=== PATIENT | female | born 1940 | race Caucasian/White ===

== ENCOUNTER → 2018-09-13 08:00 | Outpatient (CLI) | payer MEDICARE, SELFPAY ==
[2018-09-13 10:42] LABS: Thyroid Stimulating Hormone 1.64 uIU/mL (0.47-4.68)
== END ==
PROVIDERS: Family Provider Family Medicine; PCP Family Medicine; Visit Provider Family Medicine
DX: E03.9 Hypothyroidism, unspecified (principal)
CPT/HCPCS: 36415; 84443

== ENCOUNTER → 2019-01-25 09:41 | Outpatient (CLI) | payer MEDICARE, SELFPAY ==
[2019-01-25 11:09] LABS: Alanine Aminotransferase 30 IU/L (9-52); Albumin 4.4 g/dL (3.5-5.0); Albumin Globulin Ratio 1.2 (1.0-2.8); Alkaline Phosphatase 92 U/L (38-126); Aspartate Aminotransferase 35 IU/L (14-36); BUN Creatinine Ratio 29.1 (6-22); Bilirubin Total 0.5 mg/dL (0.2-1.3); Blood Urea Nitrogen 32 mg/dL (7-17); Calcium 10.4 mg/dL (8.4-10.2); Carbon Dioxide 26 mmol/L (22-32); Chloride 103 mmol/L (98-107); Estimated Glomerular Filt Rate 48.2 mL/min (>60); Globulin 3.6 g/dL (1.7-4.1); Glucose 89 mg/dL (80-110); HEMOLYSIS < 15 (0-50); Potassium 4.4 mmol/L (3.4-5.1); Sodium 140 mmol/L (137-145)
[2019-01-25 11:31] LABS: Thyroid Stimulating Hormone 1.41 uIU/mL (0.47-4.68)
== END ==
PROVIDERS: Family Provider Family Medicine; PCP Family Medicine; Visit Provider Family Medicine
DX: E03.9 Hypothyroidism, unspecified (principal); I10 Essential (primary) hypertension
CPT/HCPCS: 36415; 80053; 84443

== ENCOUNTER → 2019-04-06 14:30 | Outpatient (CLI) | payer MEDICARE, SELFPAY ==
--- NOTE | 2019-04-06 | DI.MG.S_ITS ---
BILATERAL DIGITAL DIAGNOSTIC MAMMOGRAM 3D/2D: 04/06/2019 CLINICAL: Right breast pain. Comparison is made to exams dated: 12/17/2009 mammogram, 08/15/2008 mammogram, and 12/30/2007 mammogram - [facility]. There are scattered fibroglandular elements in both breasts. No significant masses, calcifications, or other findings are seen in either breast. IMPRESSION: NEGATIVE There is no mammographic abnormality seen in the right breast to correspond with the now-resolved diffuse pain, however, clinical followup is recommended. There is no mammographic evidence of malignancy. A 1 year screening mammogram is recommended. This exam was interpreted at Station ID: [id number]. NOTE: For mammograms, a report in lay terms will be sent to the patient. Approximately 15% of breast malignancies will not be visualized mammographically. In the management of a palpable breast mass, a negative mammogram must not discourage biopsy of a clinically suspicious lesion. Electronically Signed By: Ofelia Garcia M.D. lk/:04/06/2019 15:20:37 letter sent: Normal Exam ACR BI-RADS Category 1: Negative [id number]
== END ==
PROVIDERS: PCP Family Medicine; Visit Provider Nurse Practitioner Family
DX: N64.4 Mastodynia (principal)
CPT/HCPCS: 77066; G0279

== ENCOUNTER → 2019-04-29 14:14 | Outpatient (CLI) | payer MEDICARE, SELFPAY ==
--- NOTE | 2019-04-29 | DI.RAD.S_ITS ---
PROCEDURE: XR FOOT LT MIN 3V INDICATIONS: LEFT FOOT PAIN TECHNIQUE: 3 views of the foot were acquired. COMPARISON: [facility], , FOOT 3V LEFT, 12/23/2010, 15:34. [facility], CR, FOOT 3V LEFT, 12/31/2017, 12:55. [facility], CR, FOOT 3V LEFT, 04/03/2016, 10:54. FINDINGS: Bones: No fractures or dislocations. No suspicious bony lesions. 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 This also was present in December of 2010. Soft tissues: No tibiotalar joint effusion. Achilles tendon appears normal. IMPRESSION: Source of current pain is not found. Area of sclerosis along the lateral base of the third metatarsal bone is again seen and has been present on prior studies including from December 2010. Mild osteoarthritis first MTP joint, mild bunion formation medial first metatarsal head, no osseous erosion is seen that would indicate presence of underlying gout. Dictated by: Mino Condon M.D. on 04/29/2019 at 15:40 Approved by: Mino Condon M.D. on 04/29/2019 at 15:44
== END ==
PROVIDERS: PCP Family Medicine; Visit Provider Family Medicine
DX: M79.672 Pain in left foot (principal); M19.072 Primary osteoarthritis, left ankle and foot; M21.612 Bunion of left foot
CPT/HCPCS: 73630

== ENCOUNTER → 2019-06-02 06:38 | Outpatient (CLI) | payer MEDICARE, SELFPAY ==
--- NOTE | 2019-06-02 | DI.MRI.S_ITS ---
PROCEDURE: MRFOOT LT WO CON INDICATIONS: LEFT FOOT PAIN TECHNIQUE: Noncontrast sagittal T1 spin echo and T2 fast spin echo with fat saturation, long-axis T1 spin echo and T2 fast spin echo with fat saturation, short-axis T1 spin echo and T2 fast spin echo with fat saturation through the forefoot. COMPARISON: [facility], CR, XR FOOT LT MIN 3V, 04/29/2019, 14:22. FINDINGS: Image quality: Excellent. Bones and joints: No bone marrow contusions or metatarsal stress fractures. The sesamoid bones appear in expected positions, without internal edema. There is prominent first MTP periarticular edema and swelling. Radiographically occult small/developing erosion involving the medial aspect of the first metatarsal head. In the appearance is highly suspicious for gout. There is mild first-second intermetatarsal bursitis. Small second MTP joint effusion. Elsewhere, no other marrow signal changes to suggest additional erosions. Diffuse muscle atrophy. Visualized flexor and extensor tendons appear intact, without tenosynovitis. The distal insertions of the peroneus brevis and longus tendons appear intact. The principal Lisfranc ligament appears intact. No soft tissue ganglion cysts or bursal fluid collections. Sagittal images demonstrate no evidence for plantar plate tears. IMPRESSION: Erosive appearance of first metatarsal head with marked surrounding soft tissue swelling and periarticular edema, highly suspicious for gout. Please correlate with laboratory studies/serum urate. Mild first-second intermetatarsal bursitis. Diffuse muscle atrophy. No evidence of stress fracture identified. Dictated by: Paul Haney M.D. on 06/02/2019 at 8:55 Approved by: Paul Haney M.D. on 06/02/2019 at 9:01
== END ==
PROVIDERS: Family Provider Family Medicine; PCP Family Medicine; Visit Provider Podiatrist
DX: M79.672 Pain in left foot (principal); M79.89 Other specified soft tissue disorders; M71.572 Other bursitis, not elsewhere classified, left ankle and foot; M62.572 Muscle wasting and atrophy, not elsewhere classified, left ankle and foot
CPT/HCPCS: 73718

== ENCOUNTER → 2019-06-15 14:25 | Outpatient (CLI) | payer MEDICARE, SELFPAY ==
[2019-06-15 15:07] LABS: Add Manual Diff / Slide Review NO; Basophils Absolute Auto 100 /uL (0-100); Basophils Percent Auto 1.2 % (0-2); Eosinophils Absolute Auto 200 /uL (0-450); Hematocrit 38.6 % (36-46); Hemoglobin 12.8 g/dL (12.0-16.0); Lymphocytes Absolute Auto 2300 /uL (1100-4500); Lymphocytes Percent Auto 27.8 % (25-40); Mean Corpuscular HGB Conc 33.2 % (30-36); Mean Corpuscular Hemoglobin 28.9 PG (26-34); Mean Corpuscular Volume 87.2 fL (80-100); Monocytes Absolute Auto 900 /uL (0-900); Monocytes Percent Auto 11.3 % (3-14); Neutrophils Absolute Auto 4700 /uL (1500-7000); Neutrophils Percent Auto 56.7 % (50-75); Platelet Count 320 X10^3/uL (150-400); Red Blood Cell Count 4.43 X10^6/uL (4.0-5.2); Red Cell Distribution Width 13.8 % (11.6-14.8); White Blood Cell Count 8.3 X10^3/uL (4.5-11.0)
[2019-06-15 16:12] LABS: Uric Acid 9.9 mg/dL (2.5-6.2)
== END ==
PROVIDERS: Family Provider Family Medicine; PCP Family Medicine; Visit Provider Podiatrist
DX: Z87.39 Personal history of other diseases of the musculoskeletal system and connective tissue (principal)
CPT/HCPCS: 36415; 84550; 85025

== ENCOUNTER → 2019-06-30 16:30 | Outpatient (CLI) | payer MEDICARE, SELFPAY ==
[2019-06-30 18:09] LABS: BUN Creatinine Ratio 31.7 (6-22); Blood Urea Nitrogen 38 mg/dL (7-17); Calcium 11.4 mg/dL (8.4-10.2); Carbon Dioxide 27 mmol/L (22-32); Chloride 107 mmol/L (98-107); Estimated Glomerular Filt Rate 43.6 mL/min (>60); Glucose 100 mg/dL (80-110); HEMOLYSIS < 15 (0-50); Potassium 4.9 mmol/L (3.4-5.1); Sodium 143 mmol/L (137-145); Uric Acid 9.3 mg/dL (2.5-6.2)
== END ==
PROVIDERS: PCP Family Medicine; Visit Provider Family Medicine
DX: M10.9 Gout, unspecified (principal); D64.9 Anemia, unspecified; I10 Essential (primary) hypertension; N28.9 Disorder of kidney and ureter, unspecified; Z79.899 Other long term (current) drug therapy
CPT/HCPCS: 36415; 80048; 84550; 84560

== ENCOUNTER → 2019-09-24 08:56 | Outpatient (CLI) | payer MEDICARE, SELFPAY ==
[2019-09-24 10:25] LABS: Uric Acid 7.2 mg/dL (2.5-6.2)
== END ==
PROVIDERS: PCP Family Medicine; Visit Provider Family Medicine
DX: M10.9 Gout, unspecified (principal)
CPT/HCPCS: 36415; 84550

== ENCOUNTER 2020-01-16 13:04 | Emergency (ER) | payer MEDICARE, SELFPAY ==
[2020-01-16] VITALS (11 sets, daily range): BP systolic 107–160; BP diastolic 59–93; PULSE 67–96; RESP 16–24; TEMP 36.6; O2SAT 95–98
--- NOTE | 2020-01-16 13:15 | DI.RAD.S_ITS ---
PROCEDURE: XR CHEST 1V INDICATIONS: chest pain TECHNIQUE: One view of the chest was acquired. COMPARISON: [facility], , CHEST 2 VIEW, 12/14/2015, 12:43. FINDINGS: Surgical changes and devices: Surgical clips are noted in the right lower neck and right upper abdomen as before. Lungs and pleura: Eventration of right hemidiaphragm, unchanged. Lungs are clear. No pleural effusions or pneumothorax. Mediastinum: Mediastinal contours appear normal. Heart size is normal. Bones and chest wall: No suspicious bony lesions. Overlying soft tissues appear unremarkable. IMPRESSION: Stable radiographic evaluation of the chest without acute cardiopulmonary abnormalities or focal airspace disease. Dictated by: Anibal Tamayo M.D. on 01/16/2020 at 13:39 Approved by: Anibal Tamayo M.D. on 01/16/2020 at 13:39
--- NOTE | 2020-01-16 13:50 | ED_ITS ---
HPI - Chest Pain <Abiola Camara PA-C - Last Filed: 01/16/20 23:34> General Chief Complaint: Abdominal Pain Stated Complaint: Upper back and abdominal pain since 01/11/20 Time Seen by Provider: 01/16/20 13:34 Source: patient and family Mode of arrival: Wheelchair Limitations: no limitations History of Present Illness HPI narrative: This is a 79 female who presents with 5 days of right upper quadrant abdominal pain that is intermittent and through the roof when it is happening, as well as back pain that happens a separate time that is at the base of her scapula and lasts for sometimes hours at a time. She reports some nausea for the last 5 days and has not been eating or drinking, very little fluid intake. She has not been vomiting, she has been having normal stools for her which include infrequent and firm stools, she takes Ex-Lax intermittently as needed for this and took some on Thursday. Her last bowel movement was yesterday morning. She has been feeling more weak for the last 5 days as well, she denies urinary symptoms but says that she has had UTIs in the past and has not had symptoms when she has been diagnosed with them, otherwise has no other complaints or concerns. She has had a hysterectomy, partial, she is unsure if she may have possibly had her gallbladder out, about 20 or 25 years ago. MD complaint: other (abdominal and back pain) Onset (ago): day(s) (5) Duration: intermittent Onset: during rest Pain location: epigastric Severity: moderate Severity scale (1-10): 5 Quality: aching and sharp Pain radiation: back Relieving factors: nothing and other (none tried) Exacerbating factors: nothing Associated symptoms: nausea Treatments prior to arrival chest pain: none Related Data Home Medications Medication Instructions Recorded Confirmed lovastatin 40 mg PO QDAYPM #1 07/02/08 04/08/18 [L THYROXINE] 75 QDAY #0 11/25/11 04/08/18 sumatriptan succinate [Imitrex 4 mg SQ #0 10/09/16 04/08/18 STATdose Refill] atorvastatin [Lipitor] 20 mg PO QDAY #0 08/25/17 04/08/18 levothyroxine [Synthroid] 0.075 mg PO QDAY #0 08/25/17 04/08/18 omeprazole 20 mg PO QDAY #0 08/25/17 04/08/18 propranolol [Inderal LA] 60 mg PO QDAY #0 09/01/17 04/08/18 Previous Rx's Medication Instructions Recorded propranolol 40 mg tablet 40 mg PO .qd #30 tab 04/08/18 acetaminophen [Tylenol Extra 500 mg PO Q6H PRN #14 tab 01/16/20 Strength] ciprofloxacin HCl 500 mg PO BID #10 tab 01/16/20 omeprazole 20 mg PO DAILY #20 cap 01/16/20 ondansetron HCl [Zofran] 4 mg PO Q8H #30 tab 01/16/20 Allergies Allergy/AdvReac Type Severity Reaction Status Date / Time amoxicillin [From Augmentin] Allergy Unknown Verified 04/08/18 15:13 clavulanic acid Allergy Unknown Verified 04/08/18 15:13 [From Augmentin] prednisone [PREDNISONE] Allergy Unknown Verified 04/08/18 15:13 Review of Systems <Abiola Camara PA-C - Last Filed: 01/16/20 23:34> Review of Systems Narrative: GENERAL: Denies chills, fatigue, malaise, fever, sweats. HEENT: Denies sinus pain, ear pain, sore throat, difficulty swallowing, dizziness. RESPIRATORY: Denies dyspnea, cough, wheezing, hemoptysis, sputum. CARDIOVASCULAR: Denies chest pain, palpitations, orthopnea, edema, GASTROINTESTINAL: Positive for nausea, abdominal pain, reduced appetite and reduced oral intake, constipation, right upper back pain below scapula negative for vomiting, diarrhea, melena. : Denies dysuria, frequency, incontinence, hematuria, urinary retention. MUSCULOSKELETAL: Positive for upper back pain on the right, denies weakness, joint pain, or bony pain SKIN: Denies rash, skin lesions, or other NEUROLOGIC: Denies weakness, headache, numbness, change in speech, confusion, seizures, incoordination. PSYCHIATRIC: No concerning psychosocial issues. 12 point review of systems is negative except for those stated above Patient History <MELVIN Duncan Last Filed: 01/16/20 23:34> Social History Smoking Status: Never smoker Smoking Status: Never smoker alcohol intake frequency: 0-2 drinks per day Substance Use Type: does not use Exam <Abiola Camara PA-C - Last Filed: 01/16/20 23:34> Narrative Exam Narrative: GENERAL: 79 year old patient appears stated age. Well-nourished, well-developed patient, in mild distress. HEAD: Atraumatic. Normocephalic. EYES: Pupils equal round and reactive. Extraocular motions intact. No scleral icterus. No injection or drainage. ENT: Nose without bleeding, purulent drainage. Throat without erythema, tonsillar hypertrophy or exudate. Airway patent. NECK: Trachea midline. Non tender CARDIOVASCULAR: Regular rate and rhythm without murmurs, gallops, or rubs. RESPIRATORY: Clear to auscultation. Breath sounds equal bilaterally. No wheezes, rales, or rhonchi. GASTROINTESTINAL: Abdomen soft, very tender in the right upper quadrant, Redmond sign is positive, negative McBurney's point tenderness, negative Rovsing, right lower quadrant left lower quadrant are nontender, left upper quadrant is mildly tender abdomen is otherwise non-tender, grossly nondistended, negative CVA tenderness. EXTREMITIES: No edema or joint tenderness. BACK: Nontender without deformity or crepitance. No flank tenderness. NEURO: AOx3. SKIN: No rash or erythema of visible areas Initial Vital Signs Initial Vital Signs: Vital Signs Temperature 97.8 F 01/16/20 13:10 Pulse Rate 96 H 01/16/20 13:10 Respiratory Rate 01/16/20 13:10 Blood Pressure 140/66 01/16/20 13:10 Pulse Oximetry 95 01/16/20 13:10 <Bijan Mcghee DO - Last Filed: 01/17/20 03:09> Initial Vital Signs Initial Vital Signs: Vital Signs Temperature 97.8 F 01/16/20 13:10 Pulse Rate 96 H 01/16/20 13:10 Respiratory Rate 01/16/20 13:10 Blood Pressure 140/66 01/16/20 13:10 Pulse Oximetry 95 01/16/20 13:10 Course <Abiola Camara PA-C - Last Filed: 01/16/20 23:34> Course Course Narrative: The pain is very suspicious for gallbladder etiology, however she believes she may possibly have already had this surgically removed. Plan to do a CT scan with contrast pending review of her labs for kidney function. While ultrasound may be appropriate given the location of her pain in the right upper quadrant, with radiation to her scapula, however given her history of constipation and at least 1 abdominal pelvic surgery, as well as her nausea and lack of appetite and concern for other possible etiologies of her pain and believe that a CT is warranted. At this time it is unlikely that her pain is cardiac in etiology based on her presentation, however this cannot be ruled out by exam and history alone. AST, ALT and alk-phos, and lipase are all in the normal range on initial draw. Orders Ordered: ED Orders 01/16/20 19:11 US abdomen complete Stat 01/16/20 20:14 D Dimer Stat Lipase Stat Troponin I Stat 01/16/20 21:20 Lactate (Lactic Acid) Stat Discontinued Medications Acetaminophen (Tylenol) 650 mg PO NOW ONE Stop: 01/16/20 20:58 Last Admin: 01/16/20 21:17 Dose: 650 mg Documented by: DORA Ciprofloxacin (Cipro) 500 mg PO NOW ONE Stop: 01/16/20 20:55 Last Admin: 01/16/20 21:17 Dose: 500 mg Documented by: DORA Al Hydrox/Mg Hydrox/Simethicone 20 ml/ Lidocaine HCl 15 ml 0 ml PO NOW ONE Stop: 01/16/20 16:22 Last Admin: 01/16/20 16:42 Dose: 35 ml Documented by: DORA Sodium Chloride (Normal Saline 0.9%) 1,000 mls @ 150 mls/hr IV CONT NICOLAS Last Infusion: 01/16/20 20:58 Dose: 0 mls/hr Documented by: Admin: 01/16/20 14:19 Dose: 150 mls/hr Documented by: DORA Ondansetron HCl (Zofran) 4 mg IV NOW ONE Stop: 01/16/20 13:51 Last Admin: 01/16/20 14:19 Dose: 4 mg Documented by: DORA Ondansetron HCl (Zofran) 4 mg IV Q2HR PRN PRN Reason: Nausea And Vomiting Last Admin: 01/16/20 22:13 Dose: 4 mg Documented by: DORA Pantoprazole Sodium (Protonix) 40 mg IV NOW ONE Stop: 01/16/20 19:12 Last Admin: 01/16/20 19:59 Dose: 40 mg Documented by: DORA Reevaluation(s) Reevaluation #1: Patient's pain is improved after GI cocktail, her urine is pending. Time: 16:54 Reevaluation #2: Evidence of a UTI. Discussed by phone with the family in the current situation regarding potential cause of her pain, as well as labs and imaging obtained thus far, advised planned to discharge, pending reexamination. Had planned to discharge patient, as the GI cocktail did resolve her symptoms, however on attempt to discharge her symptoms were back significantly worse, although her labs are largely unremarkable initially today, there is no clear explanation for her intermittent severe abdominal pain, discussed this patient with Dr. Mcghee ED attending, and we will pursue a repeat lipase, repeat troponin, abdominal ultrasound, D-dimer and administer Protonix. Time: 19:11 Reevaluation #3: Ordered additional labs and ultrasound based on the patient's continuing pain. Time: 20:35 Additional Reevaluation(s): I re-evaluated the patient, she continues to have intermittent pain unrelieved by Protonix. I advised her we were still awaiting results of the ultrasound and additional labs that were taken, if those are normal it is still possible that she will be sent home tonight, without a clear cause of her pain. First dose of Cipro was ordered for her UTI, as I do not suspect [facility] Also ordered p.o. Tylenol as the patient refused other pain medicines, reported allergies to opioid pain medicine according to her [id number] and son 21:25 Lactate is pending and plan to DC after this has resulted. Vital Signs Vital signs: Vital Signs - 8 hr 01/16/20 20:07 01/16/20 21:36 01/16/20 22:22 Pulse Rate 82 74 87 Respiratory Rate 16 16 16 Blood Pressure 140/67 Blood Pressure [Left Arm] 135/82 Blood Pressure [Right Arm] 140/67 Pulse Oximetry 98 98 98 <Bijan Mcghee, DO - Last Filed: 01/17/20 03:09> Orders Ordered: ED Orders 01/16/20 19:11 US abdomen complete Stat 01/16/20 20:14 D Dimer Stat Lipase Stat Troponin I Stat 01/16/20 21:20 Lactate (Lactic Acid) Stat Discontinued Medications Acetaminophen (Tylenol) 650 mg PO NOW ONE Stop: 01/16/20 20:58 Last Admin: 01/16/20 21:17 Dose: 650 mg Documented by: DORA Ciprofloxacin (Cipro) 500 mg PO NOW ONE Stop: 01/16/20 20:55 Last Admin: 01/16/20 21:17 Dose: 500 mg Documented by: DORA Al Hydrox/Mg Hydrox/Simethicone 20 ml/ Lidocaine HCl 15 ml 0 ml PO NOW ONE Stop: 01/16/20 16:22 Last Admin: 01/16/20 16:42 Dose: 35 ml Documented by: DORA Sodium Chloride (Normal Saline 0.9%) 1,000 mls @ 150 mls/hr IV CONT NICOLAS Last Infusion: 01/16/20 20:58 Dose: 0 mls/hr Documented by: Admin: 01/16/20 14:19 Dose: 150 mls/hr Documented by: DORA Ondansetron HCl (Zofran) 4 mg IV NOW ONE Stop: 01/16/20 13:51 Last Admin: 01/16/20 14:19 Dose: 4 mg Documented by: DORA Ondansetron HCl (Zofran) 4 mg IV Q2HR PRN PRN Reason: Nausea And Vomiting Last Admin: 01/16/20 22:13 Dose: 4 mg Documented by: DORA Pantoprazole Sodium (Protonix) 40 mg IV NOW ONE Stop: 01/16/20 19:12 Last Admin: 01/16/20 19:59 Dose: 40 mg Documented by: DORA Vital Signs Vital signs: Vital Signs - 8 hr 01/16/20 20:07 01/16/20 21:36 01/16/20 22:22 Pulse Rate 82 74 87 Respiratory Rate 16 16 16 Blood Pressure 140/67 Blood Pressure [Left Arm] 135/82 Blood Pressure [Right Arm] 140/67 Pulse Oximetry 98 98 98 MDM - Chest Pain <Abiola Camara PA-C - Last Filed: 01/16/20 23:34> Differential Diagnosis Differential diagnosis: Likely other (pancreatitis, urinary tract infection, small bowel obstruction, bowel ischemia, GERD) Medical Records Data Attestation: I reviewed the patient's medical records. Lab Data Attestation: I reviewed the patient's lab results. Result diagrams: 01/16/20 14:10 01/16/20 14:10 Labs: Lab Results 01/16/20 01/16/20 01/16/20 Range/Units 14:10 14:10 14:10 WBC 10.1 (4.5-11.0) X10^3/uL RBC 5.12 (4.0-5.2) X10^6/uL Hgb 14.8 (12.0-16.0) g/dL Hct 44.6 (36-46) % MCV 87.2 (80-100) fL MCH 28.9 (26-34) PG MCHC 33.2 (30-36) % RDW 13.8 (11.6-14.8) % Plt Count 335 (150-400) X10^3/uL Neut % (Auto) 70.7 (50-75) % Lymph % (Auto) 16.8 L (25-40) % [place] % (Auto) 10.6 (3-14) % Eos % (Auto) 1.1 L (2-4) % Baso % (Auto) 0.8 (0-2) % Neut # (Auto) 7100 H (6968-2810) /uL Lymph # (Auto) 1700 (8936-3854) /uL [place] # (Auto) 1100 H (0-900) /uL Eos # (Auto) 100 (0-450) /uL Baso # (Auto) 100 (0-100) /uL PT 12.3 (10.1-12.7) SECONDS INR 1.1 (0.9-1.3) APTT 35 (26.4-36.2) SECONDS D-Dimer (<230) ng/mL Sodium 138 (137-145) mmol/L Potassium 4.0 (3.4-5.1) mmol/L Chloride 103 (98-107) mmol/L Carbon Dioxide 24 (22-32) mmol/L BUN 33 H (7-17) mg/dL Creatinine 1.07 H (0.52-1.04) mg/dL Estimated GFR 49.6 L (>60) mL/min BUN/Creatinine Ratio 30.8 H (6-22) Glucose 111 H (80-110) mg/dL Lactate (0.7-2.1) mmol/L Calcium 11.5 H (8.4-10.2) mg/dL Magnesium 1.9 (1.6-2.3) mg/dL Total Bilirubin 0.7 (0.2-1.3) mg/dL AST 31 (14-36) IU/L ALT 20 (<35) IU/L Alkaline Phosphatase 109 (38-126) U/L Total Creatine Kinase 40 (30-135) U/L CK-MB (CK-2) TNP CK-MB (CK-2) Rel Index TNP Troponin I < 0.012 (0.01-0.034) ng/mL Total Protein 8.5 H (6.3-8.2) g/dL Albumin 4.7 (3.5-5.0) g/dL Globulin 3.8 (1.7-4.1) g/dL Albumin/Globulin Ratio 1.2 (1.0-2.8) Lipase 62 (23-300) U/L Urine Color Urine Appearance Urine pH (4.5-8.0) Ur Specific [place] (1.000-1.035) Urine Protein (Negative) Urine Glucose (UA) (Negative) g/dL Urine Ketones (NEGATIVE) Urine Occult Blood (Negative) Urine Nitrate (Negative) Urine Bilirubin (NEGATIVE) Urine Urobilinogen (0.2) E.U./dL Ur Leukocyte Esterase (NEGATIVE) Urine RBC (0-5/HPF) Urine WBC (0-5/HPF) Ur Squamous Epith Cells (0-5/HPF) Urine Bacteria (None) Ur Culture Indicated? 01/16/20 01/16/20 01/16/20 Range/Units 16:40 20:14 20:14 WBC (4.5-11.0) X10^3/uL RBC (4.0-5.2) X10^6/uL Hgb (12.0-16.0) g/dL Hct (36-46) % MCV (80-100) fL MCH (26-34) PG MCHC (30-36) % RDW (11.6-14.8) % Plt Count (150-400) X10^3/uL Neut % (Auto) (50-75) % Lymph % (Auto) (25-40) % [place] % (Auto) (3-14) % Eos % (Auto) (2-4) % Baso % (Auto) (0-2) % Neut # (Auto) (2867-1450) /uL Lymph # (Auto) (9446-4811) /uL [place] # (Auto) (0-900) /uL Eos # (Auto) (0-450) /uL Baso # (Auto) (0-100) /uL PT (10.1-12.7) SECONDS INR (0.9-1.3) APTT (26.4-36.2) SECONDS D-Dimer 242 H (<230) ng/mL Sodium (137-145) mmol/L Potassium (3.4-5.1) mmol/L Chloride (98-107) mmol/L Carbon Dioxide (22-32) mmol/L BUN (7-17) mg/dL Creatinine (0.52-1.04) mg/dL Estimated GFR (>60) mL/min BUN/Creatinine Ratio (6-22) Glucose (80-110) mg/dL Lactate (0.7-2.1) mmol/L Calcium (8.4-10.2) mg/dL Magnesium (1.6-2.3) mg/dL Total Bilirubin (0.2-1.3) mg/dL AST (14-36) IU/L ALT (<35) IU/L Alkaline Phosphatase (38-126) U/L Total Creatine Kinase (30-135) U/L CK-MB (CK-2) CK-MB (CK-2) Rel Index Troponin I < 0.012 (0.01-0.034) ng/mL Total Protein (6.3-8.2) g/dL Albumin (3.5-5.0) g/dL Globulin (1.7-4.1) g/dL Albumin/Globulin Ratio (1.0-2.8) Lipase 71 (23-300) U/L Urine Color Yellow Urine Appearance Sl cloudy Urine pH 5.0 (4.5-8.0) Ur Specific [place] <=1.005 (1.000-1.035) Urine Protein Trace H (Negative) Urine Glucose (UA) Negative (Negative) g/dL Urine Ketones Negative (NEGATIVE) Urine Occult Blood 3+ H (Negative) Urine Nitrate Positive H (Negative) Urine Bilirubin Negative (NEGATIVE) Urine Urobilinogen 0.2 (0.2) E.U./dL Ur Leukocyte Esterase Trace H (NEGATIVE) Urine RBC 5-10/hpf H (0-5/HPF) Urine WBC 5-10/hpf H (0-5/HPF) Ur Squamous Epith Cells 1-5 /hpf (0-5/HPF) Urine Bacteria Many (>30) H (None) Ur Culture Indicated? Specimen cultured 01/16/20 Range/Units 21:20 WBC (4.5-11.0) X10^3/uL RBC (4.0-5.2) X10^6/uL Hgb (12.0-16.0) g/dL Hct (36-46) % MCV (80-100) fL MCH (26-34) PG MCHC (30-36) % RDW (11.6-14.8) % Plt Count (150-400) X10^3/uL Neut % (Auto) (50-75) % Lymph % (Auto) (25-40) % [place] % (Auto) (3-14) % Eos % (Auto) (2-4) % Baso % (Auto) (0-2) % Neut # (Auto) (7550-8423) /uL Lymph # (Auto) (2677-8148) /uL [place] # (Auto) (0-900) /uL Eos # (Auto) (0-450) /uL Baso # (Auto) (0-100) /uL PT (10.1-12.7) SECONDS INR (0.9-1.3) APTT (26.4-36.2) SECONDS D-Dimer (<230) ng/mL Sodium (137-145) mmol/L Potassium (3.4-5.1) mmol/L Chloride (98-107) mmol/L Carbon Dioxide (22-32) mmol/L BUN (7-17) mg/dL Creatinine (0.52-1.04) mg/dL Estimated GFR (>60) mL/min BUN/Creatinine Ratio (6-22) Glucose (80-110) mg/dL Lactate 1.1 (0.7-2.1) mmol/L Calcium (8.4-10.2) mg/dL Magnesium (1.6-2.3) mg/dL Total Bilirubin (0.2-1.3) mg/dL AST (14-36) IU/L ALT (<35) IU/L Alkaline Phosphatase (38-126) U/L Total Creatine Kinase (30-135) U/L CK-MB (CK-2) CK-MB (CK-2) Rel Index Troponin I (0.01-0.034) ng/mL Total Protein (6.3-8.2) g/dL Albumin (3.5-5.0) g/dL Globulin (1.7-4.1) g/dL Albumin/Globulin Ratio (1.0-2.8) Lipase (23-300) U/L Urine Color Urine Appearance Urine pH (4.5-8.0) Ur Specific [place] (1.000-1.035) Urine Protein (Negative) Urine Glucose (UA) (Negative) g/dL Urine Ketones (NEGATIVE) Urine Occult Blood (Negative) Urine Nitrate (Negative) Urine Bilirubin (NEGATIVE) Urine Urobilinogen (0.2) E.U./dL Ur Leukocyte Esterase (NEGATIVE) Urine RBC (0-5/HPF) Urine WBC (0-5/HPF) Ur Squamous Epith Cells (0-5/HPF) Urine Bacteria (None) Ur Culture Indicated? Imaging Data Chest x-ray: Attestation: I personally reviewed and interpreted this imaging study as follows: Radiologist's Impression: [address] [address] XRay Report Signed Patient: Maira Galicia EMR#: [id number] : 1940cct:[id number] Age/Sex: 79 / FDate of Service: 01/16/20 Loc: ED Accession Number: [id number] Procedure: XR chest 1V Ordering Provider: Sammie Syed MD PROCEDURE: XR CHEST 1V INDICATIONS: chest pain TECHNIQUE: One view of the chest was acquired. COMPARISON: [facility], , CHEST 2 VIEW, 12/14/2015, 12:43. FINDINGS: Surgical changes and devices: Surgical clips are noted in the right lower neck and right upper abdomen as before. Lungs and pleura: Eventration of right hemidiaphragm, unchanged. Lungs are cl ear. No pleural effusions or pneumothorax. Mediastinum: Mediastinal contours appear normal. Heart size is normal. Bones and chest wall: No suspicious bony lesions. Overlying soft tissues ap pear unremarkable. IMPRESSION: Stable radiographic evaluation of the chest without acute cardiop ulmonary abnormalities or focal airspace disease. Dictated by: Anibal Tamayo M.D. on 01/16/2020 at 13:39 Approved by: Anibal Tamayo M.D. on 01/16/2020 at 13:39 CT scan - abdomen/pelvis: Attestation: I personally reviewed and interpreted this imaging study as follows: Radiologist's Impression: [address] [address] [address] Scan Report Signed Patient: Maira Galicia EMR#: [id number] : 1Acct:[id number] Age/Sex: 79 / FDate of Service: 01/16/20 Loc: ED Accession Number: [id number] Procedure: CT abdomen pelvis w con Ordering Provider: Abiola Camara P.A-C PROCEDURE: CT ABDOMEN PELVIS W CON INDICATIONS: acute worsening severe abd pain TECHNIQUE: After the administration of intravenous contrast, 5 mm thick sections acquired from the diaphragm to the symphysis. 5 mm coronal and sagittal reformats were acquired. For radiation dose reduction, the following was used: automated exposure control, adjustment of mA and/or kV according to patient size. COMPARISON: [facility], CT, IVP (ABD & PEL WWO CONTRAST), 12/05/2013, 9:43. FINDINGS: Image quality: Excellent. ABDOMEN: Lung bases: Lung bases are clear. Heart size is normal. Stable pulmonary emphysematous changes. Small hiatal hernia. Solid organs: Liver is normal in size and enhancement. Small left hepatic lobe hypodensity is again noted. Gallbladder is surgically absent. Biliary system is non dilated. Pancreas enhances normally. There is minimal jeimy-pancreatic stranding near the adjacent to the ampulla of Vater. No evidence for intraluminal filling defects within the distal common bile duct. Spleen is normal in size and enhancement. No adrenal nodules. Kidneys demonstrate normal size and enhancement, without hydronephro sis. Multiple bilateral renal hypodensities are again noted. These likely represent bilateral renal cysts. Peritoneum and bowel: Bowel loops demonstrate normal wall thickness and caliber. No free fluid or air. Scattered colonic diverticula without acute diverticulosis. Nodes and vessels: No retroperitoneal or mesenteric adenopathy by size criteria. Scattered atherosclerotic calcifications of the abdominal aorta and iliac vessels without aneurysmal dilatation. Miscellaneous: No ventral hernias. PELVIS: Genitourinary: Urinary bladder wall thickness is normal. The uterus is not visualized and presumably surgically absent. Miscellaneous: No inguinal hernias or adenopathy. Bones: No suspicious bony lesions. No acute vertebral body compression fractures. Multilevel lumbar spondylosis. Status post interval posterior spinal fusion and laminectomies of L4 and L5. IMPRESSION: 1. Minimal peripancreatic stranding near the pancreatic head and ampulla of Vater. No CT evidence for choledocholithiasis. Findings may represent volume averaging artifact versus early/mild pancreatitis. Recommend clinical and laboratory correlation. 2. Scatter colonic diverticulosis without acute diverticulitis. 3. Status post cholecystectomy. Dictated by: Anibal Tamayo M.D. on 01/16/2020 at 15:15 Approved by: Anibal Tamayo M.D. on 01/16/2020 at 15:26 US - abdomen: Attestation: I personally reviewed and interpreted this imaging study as follows: Radiologist's Impression: [address] [address] Ultrasound Report Signed Patient: Maira Galicia EMR#: [id number] : 1940cct:[id number] Age/Sex: 79 / FDate of Service: 01/16/20 Loc: ED Accession Number: [id number] Procedure: US abdomen complete Ordering Provider: Abiola Camara P.A-C PROCEDURE: US ABDOMEN COMPLETE INDICATIONS: INTRACTABLE PAIN, ABN PANCREAS ON CT TECHNIQUE: Real-time scanning was performed of the abdominal and retroperitoneal organs, with image documentation. COMPARISON: [facility], US, ABDOMEN COMPLETE, 02/28/2013, 11:09. FINDINGS: Study limited secondary to moderate overlying bowel gas. Liver: Visualized portions of the liver appear normal in echotexture. No focal intrahepatic lesions. Gallbladder: Surgically absent Biliary ducts: Intrahepatic bile ducts are non-dilated. Extrahepatic bile duct caliber measures 4 mm; however, it is not fully visualized. Normal is 6-7 mm or less in diameter, or 10 mm or less post-cholecystectomy. Pancreas: The visualized portions of the pancreas are sonographically normal. Only the pancreatic body was visualized. Spleen: Spleen is normal in size and homogeneous in echotexture. Kidneys: Kidneys are normal in size and echotexture. Right kidney measures 10.4 cm long; left kidney measures 10 point cm long. No hydronephrosis or nephrolithiasis. No solid masses. There are multiple incompletely characterized cystic lesions within the kidneys, likely representing cysts. Largest measures 1.7 cm in size. Aorta: Visualized aorta is normal in caliber at less than 3 cm. Iliacs: Proximal common iliac arteries are normal in caliber at less than 2.5 cm. Miscellaneous: No free abdominal fluid. IMPRESSION: Limited evaluation of the abdomen secondary to moderate overlying bowel gas. Status post cholecystectomy. Visualized portions of the liver and pancreas appear normal. No evidence for obstructive uropathy. Multiple bilateral cystic lesions likely representing cysts but are incompletely visualized due to bowel gas. Consider dedicated outpatient ultrasound to further evaluate. Dictated by: Anibal Tamayo M.D. on 01/16/2020 at 20:42 Approved by: Anibal Tamayo M.D. on 01/16/2020 at 20:47 ECG Data Attestation: I personally reviewed and interpreted this ECG as follows: (Normal sinus rhythm rate 87 p.r. interval 196 QRS 110 QT 408 P 69, R -39, T 33 EKG was reviewed by Dr. Syed attending physician; read out with nonspecific ST abnormality, prolonged QT, left axis deviation) MDM Narrative Medical decision making narrative: This is a 79-year-old female who presents with severe intermittent right upper quadrant abdominal pain for the last 5 days and back pain around her right scapula that lasts for hours at a time. She has had associated nausea, without vomiting and normal bowel movements for her. Previous cholecystectomy and partial hysterectomy. Labs were largely unremarkable, and not suggestive liver etiology, gallbladder is absent, lipase was also unremarkable, however she did have some peripancreatic stranding around the head of the pancreas and ambulate of Vater on CT scan. Her pain was improved with a GI cocktail in the emergency department. Planned to send her home with increase omeprazole dose, and close PCP follow-up, as labs do not suggest an acute pancreatitis, and imaging does not either. She declined pain control in the emergency department, and advises that she does not take pain medicine at home. Unattended discharge she reported continued severe pain, and thus further workup was pursued, including a D-dimer which with age adjustment of D-dimer cutoff of 390, suggests a VTE is unlikely. Complete abdominal ultrasound was also performed and was unremarkable, the source of her pain remains unclear with the possible exception of her urinary tract infection as a cause, however this seems unlikely to explain all of her pain. Lactate was not elevated. First dose of Cipro for her UTI in the emergency department as well as Tylenol for pain. <Bijanyojana Mcghee DO - Last Filed: 01/17/20 03:09> Lab Data Labs: Lab Results 01/16/20 01/16/20 01/16/20 Range/Units 14:10 14:10 14:10 WBC 10.1 (4.5-11.0) X10^3/uL RBC 5.12 (4.0-5.2) X10^6/uL Hgb 14.8 (12.0-16.0) g/dL Hct 44.6 (36-46) % MCV 87.2 (80-100) fL MCH 28.9 (26-34) PG MCHC 33.2 (30-36) % RDW 13.8 (11.6-14.8) % Plt Count 335 (150-400) X10^3/uL Neut % (Auto) 70.7 (50-75) % Lymph % (Auto) 16.8 L (25-40) % [place] % (Auto) 10.6 (3-14) % Eos % (Auto) 1.1 L (2-4) % Baso % (Auto) 0.8 (0-2) % Neut # (Auto) 7100 H (9613-2462) /uL Lymph # (Auto) 1700 (3785-7347) /uL [place] # (Auto) 1100 H (0-900) /uL Eos # (Auto) 100 (0-450) /uL Baso # (Auto) 100 (0-100) /uL PT 12.3 (10.1-12.7) SECONDS INR 1.1 (0.9-1.3) APTT 35 (26.4-36.2) SECONDS D-Dimer (<230) ng/mL Sodium 138 (137-145) mmol/L Potassium 4.0 (3.4-5.1) mmol/L Chloride 103 (98-107) mmol/L Carbon Dioxide 24 (22-32) mmol/L BUN 33 H (7-17) mg/dL Creatinine 1.07 H (0.52-1.04) mg/dL Estimated GFR 49.6 L (>60) mL/min BUN/Creatinine Ratio 30.8 H (6-22) Glucose 111 H (80-110) mg/dL Lactate (0.7-2.1) mmol/L Calcium 11.5 H (8.4-10.2) mg/dL Magnesium 1.9 (1.6-2.3) mg/dL Total Bilirubin 0.7 (0.2-1.3) mg/dL AST 31 (14-36) IU/L ALT 20 (<35) IU/L Alkaline Phosphatase 109 (38-126) U/L Total Creatine Kinase 40 (30-135) U/L CK-MB (CK-2) TNP CK-MB (CK-2) Rel Index TNP Troponin I < 0.012 (0.01-0.034) ng/mL Total Protein 8.5 H (6.3-8.2) g/dL Albumin 4.7 (3.5-5.0) g/dL Globulin 3.8 (1.7-4.1) g/dL Albumin/Globulin Ratio 1.2 (1.0-2.8) Lipase 62 (23-300) U/L Urine Color Urine Appearance Urine pH (4.5-8.0) Ur Specific [place] (1.000-1.035) Urine Protein (Negative) Urine Glucose (UA) (Negative) g/dL Urine Ketones (NEGATIVE) Urine Occult Blood (Negative) Urine Nitrate (Negative) Urine Bilirubin (NEGATIVE) Urine Urobilinogen (0.2) E.U./dL Ur Leukocyte Esterase (NEGATIVE) Urine RBC (0-5/HPF) Urine WBC (0-5/HPF) Ur Squamous Epith Cells (0-5/HPF) Urine Bacteria (None) Ur Culture Indicated? 01/16/20 01/16/20 01/16/20 Range/Units 16:40 20:14 20:14 WBC (4.5-11.0) X10^3/uL RBC (4.0-5.2) X10^6/uL Hgb (12.0-16.0) g/dL Hct (36-46) % MCV (80-100) fL MCH (26-34) PG MCHC (30-36) % RDW (11.6-14.8) % Plt Count (150-400) X10^3/uL Neut % (Auto) (50-75) % Lymph % (Auto) (25-40) % [place] % (Auto) (3-14) % Eos % (Auto) (2-4) % Baso % (Auto) (0-2) % Neut # (Auto) (1090-6902) /uL Lymph # (Auto) (7016-6178) /uL [place] # (Auto) (0-900) /uL Eos # (Auto) (0-450) /uL Baso # (Auto) (0-100) /uL PT (10.1-12.7) SECONDS INR (0.9-1.3) APTT (26.4-36.2) SECONDS D-Dimer 242 H (<230) ng/mL Sodium (137-145) mmol/L Potassium (3.4-5.1) mmol/L Chloride (98-107) mmol/L Carbon Dioxide (22-32) mmol/L BUN (7-17) mg/dL Creatinine (0.52-1.04) mg/dL Estimated GFR (>60) mL/min BUN/Creatinine Ratio (6-22) Glucose (80-110) mg/dL Lactate (0.7-2.1) mmol/L Calcium (8.4-10.2) mg/dL Magnesium (1.6-2.3) mg/dL Total Bilirubin (0.2-1.3) mg/dL AST (14-36) IU/L ALT (<35) IU/L Alkaline Phosphatase (38-126) U/L Total Creatine Kinase (30-135) U/L CK-MB (CK-2) CK-MB (CK-2) Rel Index Troponin I < 0.012 (0.01-0.034) ng/mL Total Protein (6.3-8.2) g/dL Albumin (3.5-5.0) g/dL Globulin (1.7-4.1) g/dL Albumin/Globulin Ratio (1.0-2.8) Lipase 71 (23-300) U/L Urine Color Yellow Urine Appearance Sl cloudy Urine pH 5.0 (4.5-8.0) Ur Specific [place] <=1.005 (1.000-1.035) Urine Protein Trace H (Negative) Urine Glucose (UA) Negative (Negative) g/dL Urine Ketones Negative (NEGATIVE) Urine Occult Blood 3+ H (Negative) Urine Nitrate Positive H (Negative) Urine Bilirubin Negative (NEGATIVE) Urine Urobilinogen 0.2 (0.2) E.U./dL Ur Leukocyte Esterase Trace H (NEGATIVE) Urine RBC 5-10/hpf H (0-5/HPF) Urine WBC 5-10/hpf H (0-5/HPF) Ur Squamous Epith Cells 1-5 /hpf (0-5/HPF) Urine Bacteria Many (>30) H (None) Ur Culture Indicated? Specimen cultured 01/16/20 Range/Units 21:20 WBC (4.5-11.0) X10^3/uL RBC (4.0-5.2) X10^6/uL Hgb (12.0-16.0) g/dL Hct (36-46) % MCV (80-100) fL MCH (26-34) PG MCHC (30-36) % RDW (11.6-14.8) % Plt Count (150-400) X10^3/uL Neut % (Auto) (50-75) % Lymph % (Auto) (25-40) % [place] % (Auto) (3-14) % Eos % (Auto) (2-4) % Baso % (Auto) (0-2) % Neut # (Auto) (1288-9858) /uL Lymph # (Auto) (4730-7500) /uL [place] # (Auto) (0-900) /uL Eos # (Auto) (0-450) /uL Baso # (Auto) (0-100) /uL PT (10.1-12.7) SECONDS INR (0.9-1.3) APTT (26.4-36.2) SECONDS D-Dimer (<230) ng/mL Sodium (137-145) mmol/L Potassium (3.4-5.1) mmol/L Chloride (98-107) mmol/L Carbon Dioxide (22-32) mmol/L BUN (7-17) mg/dL Creatinine (0.52-1.04) mg/dL Estimated GFR (>60) mL/min BUN/Creatinine Ratio (6-22) Glucose (80-110) mg/dL Lactate 1.1 (0.7-2.1) mmol/L Calcium (8.4-10.2) mg/dL Magnesium (1.6-2.3) mg/dL Total Bilirubin (0.2-1.3) mg/dL AST (14-36) IU/L ALT (<35) IU/L Alkaline Phosphatase (38-126) U/L Total Creatine Kinase (30-135) U/L CK-MB (CK-2) CK-MB (CK-2) Rel Index Troponin I (0.01-0.034) ng/mL Total Protein (6.3-8.2) g/dL Albumin (3.5-5.0) g/dL Globulin (1.7-4.1) g/dL Albumin/Globulin Ratio (1.0-2.8) Lipase (23-300) U/L Urine Color Urine Appearance Urine pH (4.5-8.0) Ur Specific [place] (1.000-1.035) Urine Protein (Negative) Urine Glucose (UA) (Negative) g/dL Urine Ketones (NEGATIVE) Urine Occult Blood (Negative) Urine Nitrate (Negative) Urine Bilirubin (NEGATIVE) Urine Urobilinogen (0.2) E.U./dL Ur Leukocyte Esterase (NEGATIVE) Urine RBC (0-5/HPF) Urine WBC (0-5/HPF) Ur Squamous Epith Cells (0-5/HPF) Urine Bacteria (None) Ur Culture Indicated? Discharge Plan Departure Patient Disposition: Home Clinical Impression: Complicated urinary tract infection, Abdominal pain, acute, right upper quadrant Discharge Date/Time: 01/16/20 22:23 Instructions: DI for Urinary Tract Infection (UTI), DI for Abdominal Pain-Adult Activity Restrictions/Additional Instructions: Thank you for letting us to be part of your care today, based on labs, CT scan, abdominal ultrasound, There is no evidence of an emergent or life threatening illness at this time, nor is the cause of your pain clear, but follow up with your doctor in 1-2 days is recommended nonetheless to continue to rule out serious underlying causes of your symptoms. Please call the office for an ap pointment. You had a very extensive workup in the emergency department today and unfortunately we have not found a clear cause of your abdominal pain. Please return to the Emergency Department for any worsening or persistent symptoms. Please take medications as directed. Your urine showed evidence of urinary tract infection which we are treating with Cipro an antibiotic, please take as prescribed (twice a day). Occasionally urinary tract infection can go up the ureter and involved the kidney, if that is the case, this antibiotic should help. Your back pain by your shoulder blade could be due to your kidney being affected by this, but you also had abdominal pain in the upper middle of your abdomen that was relieved with medication and I am writing a prescription for omeprazole which should help with your stomach pain. I have also prescribed extra strength tylenol that you can take for pain. And Zofran (ondansetron) which is an anti nausea medicine that you can take as needed every 6-8 hours for nausea. I advise you to follow-up with your PCP in the next 1-2 days and if you have a train attendant I recommend seeing your train attendant. If you develop any new or worsening symptoms, you should seek medical care. Prescriptions: New ciprofloxacin HCl 500 mg tablet 500 mg PO BID Qty: 10 RF: 0 omeprazole 20 mg capsule,delayed release(DR/EC) 20 mg PO DAILY Qty: 20 RF: 0 acetaminophen [Tylenol Extra Strength] 500 mg tablet 500 mg PO Q6H PRN (Reason: pain) Qty: 14 RF: 0 ondansetron HCl [Zofran] 4 mg tablet 4 mg PO Q8H Qty: 30 RF: 0 No Action lovastatin 20 MG tablet 40 mg PO QDAYPM Qty: 1 RF: 0 [L THYROXINE] 75 QDAY Qty: 0 RF: 0 sumatriptan succinate [Imitrex STATdose Refill] 4 MG/0.5 ML cartridge 4 mg SQ Qty: 0 RF: 0 omeprazole 20 MG capsule,delayed release(DR/EC) 20 mg PO QDAY Qty: 0 RF: 0 atorvastatin [Lipitor] 20 MG tablet 20 mg PO QDAY Qty: 0 RF: 0 levothyroxine [Synthroid] 75 MCG tablet 0.075 mg PO QDAY Qty: 0 RF: 0 propranolol [Inderal LA] 60 MG capsule,extended release 24 hr 60 mg PO QDAY Qty: 0 RF: 0 propranolol 40 mg tablet 40 mg PO .qd Qty: 30 RF: 11 Referrals: Koffi Bxo MD [Primary Care Provider] - <Bijan Mcghee DO - Last Filed: 01/17/20 03:09> Cosign ED Attending Coselvaature Attestation: I was immediately available in the department for consultation. This documentation has been reviewed and I agree with assessment and plan. Supervised by Bijan Mcghee, DO
[2020-01-16] MEDS: SODIUM CHLORIDE 0.9% 1,000 ML 150 ML IV (14:19)
[2020-01-16] MEDS: ONDANSETRON 4 MG/2 ML INJ IV ×2 (14:19→22:13)
[2020-01-16 14:22] LABS: Add Manual Diff / Slide Review NO; Basophils Absolute Auto 100 /uL (0-100); Basophils Percent Auto 0.8 % (0-2); Eosinophils Absolute Auto 100 /uL (0-450); Eosinophils Percent Auto 1.1 % (2-4); Hematocrit 44.6 % (36-46); Hemoglobin 14.8 g/dL (12.0-16.0); Lymphocytes Absolute Auto 1700 /uL (1100-4500); Lymphocytes Percent Auto 16.8 % (25-40); Mean Corpuscular HGB Conc 33.2 % (30-36); Mean Corpuscular Hemoglobin 28.9 PG (26-34); Mean Corpuscular Volume 87.2 fL (80-100); Monocytes Absolute Auto 1100 /uL (0-900); Monocytes Percent Auto 10.6 % (3-14); Neutrophils Absolute Auto 7100 /uL (1500-7000); Neutrophils Percent Auto 70.7 % (50-75); Platelet Count 335 X10^3/uL (150-400); Red Blood Cell Count 5.12 X10^6/uL (4.0-5.2); Red Cell Distribution Width 13.8 % (11.6-14.8); White Blood Cell Count 10.1 X10^3/uL (4.5-11.0)
[2020-01-16 14:29] LABS: INR 1.1 (0.9-1.3); Prothrombin Time 12.3 SECONDS (10.1-12.7)
[2020-01-16 14:32] LABS: PTT Partial Thromboplastin Tim 35 SECONDS (26.4-36.2)
[2020-01-16 14:33] LABS: Alanine Aminotransferase 20 IU/L (<35); Albumin 4.7 g/dL (3.5-5.0); Albumin Globulin Ratio 1.2 (1.0-2.8); Alkaline Phosphatase 109 U/L (38-126); Aspartate Aminotransferase 31 IU/L (14-36); BUN Creatinine Ratio 30.8 (6-22); Bilirubin Total 0.7 mg/dL (0.2-1.3); Blood Urea Nitrogen 33 mg/dL (7-17); Calcium 11.5 mg/dL (8.4-10.2); Carbon Dioxide 24 mmol/L (22-32); Chloride 103 mmol/L (98-107); Creatine Kinase 40 U/L (30-135); Estimated Glomerular Filt Rate 49.6 mL/min (>60); Globulin 3.8 g/dL (1.7-4.1); Glucose 111 mg/dL (80-110); HEMOLYSIS 18 (0-50); Lipase 62 U/L (23-300); Magnesium 1.9 mg/dL (1.6-2.3); Sodium 138 mmol/L (137-145); Total Protein 8.5 g/dL (6.3-8.2)
[2020-01-16 14:45] LABS: Troponin I < 0.012 ng/mL (0.01-0.034)
--- NOTE | 2020-01-16 14:51 | DI.CT.S_ITS ---
PROCEDURE: CT ABDOMEN PELVIS W CON INDICATIONS: acute worsening severe abd pain TECHNIQUE: After the administration of intravenous contrast, 5 mm thick sections acquired from the diaphragm to the symphysis. 5 mm coronal and sagittal reformats were acquired. For radiation dose reduction, the following was used: automated exposure control, adjustment of mA and/or kV according to patient size. COMPARISON: [facility], CT, IVP (ABD & PEL WWO CONTRAST), 12/05/2013, 9:43. FINDINGS: Image quality: Excellent. ABDOMEN: Lung bases: Lung bases are clear. Heart size is normal. Stable pulmonary emphysematous changes. Small hiatal hernia. Solid organs: Liver is normal in size and enhancement. Small left hepatic lobe hypodensity is again noted. Gallbladder is surgically absent. Biliary system is non dilated. Pancreas enhances normally. There is minimal jeimy-pancreatic stranding near the adjacent to the ampulla of Vater. No evidence for intraluminal filling defects within the distal common bile duct. Spleen is normal in size and enhancement. No adrenal nodules. Kidneys demonstrate normal size and enhancement, without hydronephrosis. Multiple bilateral renal hypodensities are again noted. These likely represent bilateral renal cysts. Peritoneum and bowel: Bowel loops demonstrate normal wall thickness and caliber. No free fluid or air. Scattered colonic diverticula without acute diverticulosis. Nodes and vessels: No retroperitoneal or mesenteric adenopathy by size criteria. Scattered atherosclerotic calcifications of the abdominal aorta and iliac vessels without aneurysmal dilatation. Miscellaneous: No ventral hernias. PELVIS: Genitourinary: Urinary bladder wall thickness is normal. The uterus is not visualized and presumably surgically absent. Miscellaneous: No inguinal hernias or adenopathy. Bones: No suspicious bony lesions. No acute vertebral body compression fractures. Multilevel lumbar spondylosis. Status post interval posterior spinal fusion and laminectomies of L4 and L5. IMPRESSION: 1. Minimal peripancreatic stranding near the pancreatic head and ampulla of Vater. No CT evidence for choledocholithiasis. Findings may represent volume averaging artifact versus early/mild pancreatitis. Recommend clinical and laboratory correlation. 2. Scatter colonic diverticulosis without acute diverticulitis. 3. Status post cholecystectomy. Dictated by: Anibal Tamayo M.D. on 01/16/2020 at 15:15 Approved by: Anibal Tamayo M.D. on 01/16/2020 at 15:26
[2020-01-16] MEDS: MAG HYDROX/ALUMINUM/SIMETH SUS 20 ML, LIDOCAINE VISCOUS 2% 15 ML PO (16:42)
--- NOTE | 2020-01-16 16:47 | PC.NURSE ---
Pain relieved by GI Cocktail. Unsteady on feet when moving patient to commode, needs full stand by assist. Urine is dark and foul smelling, sent for micro.
[2020-01-16 16:55] LABS: Appearance Urine UA SL CLOUDY; Bilirubin Urine UA NEGATIVE (NEGATIVE); Color Urine UA YELLOW; Glucose Urine UA NEGATIVE (Negative); Ketones Urine UA NEGATIVE (NEGATIVE); Leukocyte Esterase Urine UA TRACE (NEGATIVE); Nitrite Urine UA POSITIVE (Negative); Occult Blood Urine UA 3+ (Negative); Protein Urine UA TRACE (Negative); Specific Gravity Urine UA <=1.005 (1.000-1.035); Urobilinogen Urine UA 0.2 E.U./dL (0.2)
[2020-01-16 17:08] LABS: RBC Urine 5-10/HPF (0-5/HPF); Squamous Epithelial Cell Urine 1-5 /HPF (0-5/HPF); WBC Urine 5-10/HPF (0-5/HPF)
[2020-01-16 17:09] LABS: Bacteria Urine Many (>30); Culture Indicated Urine Specimen Cultured
--- NOTE | 2020-01-16 19:04 | PC.NURSE ---
Prepping to DC patient when she reports pain returned at 9/10. She is gripping abdomen and moaning saying this is what it keeps doing at home. it's coming and going like this. CLEO Camara aware.
--- NOTE | 2020-01-16 19:11 | DI.US.S_ITS ---
PROCEDURE: US ABDOMEN COMPLETE INDICATIONS: INTRACTABLE PAIN, ABN PANCREAS ON CT TECHNIQUE: Real-time scanning was performed of the abdominal and retroperitoneal organs, with image documentation. COMPARISON: [facility], US, ABDOMEN COMPLETE, 02/28/2013, 11:09. FINDINGS: Study limited secondary to moderate overlying bowel gas. Liver: Visualized portions of the liver appear normal in echotexture. No focal intrahepatic lesions. Gallbladder: Surgically absent Biliary ducts: Intrahepatic bile ducts are non-dilated. Extrahepatic bile duct caliber measures 4 mm; however, it is not fully visualized. Normal is 6-7 mm or less in diameter, or 10 mm or less post-cholecystectomy. Pancreas: The visualized portions of the pancreas are sonographically normal. Only the pancreatic body was visualized. Spleen: Spleen is normal in size and homogeneous in echotexture. Kidneys: Kidneys are normal in size and echotexture. Right kidney measures 10.4 cm long; left kidney measures 10 point cm long. No hydronephrosis or nephrolithiasis. No solid masses. There are multiple incompletely characterized cystic lesions within the kidneys, likely representing cysts. Largest measures 1.7 cm in size. Aorta: Visualized aorta is normal in caliber at less than 3 cm. Iliacs: Proximal common iliac arteries are normal in caliber at less than 2.5 cm. Miscellaneous: No free abdominal fluid. IMPRESSION: Limited evaluation of the abdomen secondary to moderate overlying bowel gas. Status post cholecystectomy. Visualized portions of the liver and pancreas appear normal. No evidence for obstructive uropathy. Multiple bilateral cystic lesions likely representing cysts but are incompletely visualized due to bowel gas. Consider dedicated outpatient ultrasound to further evaluate. Dictated by: Anibal Tamayo M.D. on 01/16/2020 at 20:42 Approved by: Anibal Tamayo M.D. on 01/16/2020 at 20:47
[2020-01-16] MEDS: PANTOPRAZOLE 40 MG VIAL IV (19:59)
--- NOTE | 2020-01-16 20:08 | PC.NURSE ---
Patient reports the pain is going back down again. And that this is what it does, it gets really bad and then it just goes away.
[2020-01-16 20:38] LABS: Lipase 71 U/L (23-300)
[2020-01-16 20:40] LABS: D Dimer 242 ng/mL (<230)
[2020-01-16 20:50] LABS: Troponin I < 0.012 ng/mL (0.01-0.034)
[2020-01-16] MEDS: CIPROFLOXACIN 500 MG TABLET PO (21:17)
[2020-01-16] MEDS: ACETAMINOPHEN 325 MG TABLET 650 MG PO (21:17)
[2020-01-16 21:35] LABS: Lactate (Lactic Acid) 1.1 mmol/L (0.7-2.1)
== END 2020-01-16 22:23 | disposition home or self-care (01) ==
PROVIDERS: Emergency Medicine; Emergency Provider Student in an Organized Health Care Education/Training Program; PCP Family Medicine
DX: N39.0 Urinary tract infection, site not specified (principal); R10.11 Right upper quadrant pain; M54.6 Pain in thoracic spine; R07.9 Chest pain, unspecified
CPT/HCPCS: 36415; 71045; 74177; 76700; 80053; 81001; 82550; 83605; 83690; 83735; 84484; 85025; 85379; 85610; 85730; 87077; 87086; 87186; 93005; 96361; 96374; 96375; 96376; 99285; C9113; J2405

== ENCOUNTER → 2020-02-24 09:06 | Outpatient (CLI) | payer MEDICARE, SELFPAY ==
--- NOTE | 2020-02-24 | DI.RAD.S_ITS ---
PROCEDURE: XR FOOT LT MIN 3V INDICATIONS: Left foot pain and swelling, history of gout TECHNIQUE: 3 views of the foot were acquired. COMPARISON: [facility], CR, XR FOOT LT MIN 3V, 04/29/2019, 14:22. [facility], CR, FOOT 3V LEFT, 12/31/2017, 12:55. FINDINGS: Bones: No fractures or dislocations. No suspicious bony lesions. There is mild joint space narrowing at the first MTP joint but no erosive arthritis is seen. Soft tissues: No tibiotalar joint effusion. Achilles tendon appears normal. 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 Dictated by: Mino Condon M.D. on 02/24/2020 at 9:29 Approved by: Mino Condon M.D. on 02/24/2020 at 9:30
== END ==
PROVIDERS: PCP Family Medicine; Referring Provider Family Medicine; Visit Provider Family Medicine
DX: M79.672 Pain in left foot (principal); M79.89 Other specified soft tissue disorders; M19.072 Primary osteoarthritis, left ankle and foot
CPT/HCPCS: 73630

== ENCOUNTER → 2020-04-11 15:33 | Outpatient (CLI) | payer MEDICARE, SELFPAY ==
--- NOTE | 2020-04-11 | DI.MG.S_ITS ---
BILATERAL DIGITAL SCREENING MAMMOGRAM 3D/2D WITH CAD: 04/11/2020 CLINICAL: Routine screening. Comparison is made to exams dated: 04/06/2019 mammogram, 12/17/2009 mammogram, and 12/30/2007 mammogram - [facility]. There are scattered fibroglandular elements in both breasts. Current study was also evaluated with a Computer Aided Detection (CAD) system. No significant masses, calcifications, or other findings are seen in either breast. There has been no significant interval change. IMPRESSION: NEGATIVE There is no mammographic evidence of malignancy. A 1 year screening mammogram is recommended. This exam was interpreted at Station ID: [id number]. NOTE: For mammograms, a report in lay terms will be sent to the patient. Approximately 15% of breast malignancies will not be visualized mammographically. In the management of a palpable breast mass, a negative mammogram must not discourage biopsy of a clinically suspicious lesion. Electronically Signed By: Anibal sullivan/sherly:04/11/2020 18:02:59 letter sent: Normal Exam ACR BI-RADS Category 1: Negative [id number]
== END ==
PROVIDERS: PCP Family Medicine; Referring Provider Family Medicine; Visit Provider Family Medicine
DX: Z12.31 Encounter for screening mammogram for malignant neoplasm of breast (principal)
CPT/HCPCS: 77063; 77067

== ENCOUNTER 2020-05-03 11:46 | Outpatient (CLI) | payer MEDICARE, SELFPAY | END 2020-05-03 15:45 | disposition home or self-care (01) | LOC: PHYS 11:47 | PROVIDERS: PCP Family Medicine; Referring Provider Family Medicine; Visit Provider Family Medicine | DX: R20.2 Paresthesia of skin (principal); G62.9 Polyneuropathy, unspecified | CPT/HCPCS: 95886; 95912 ==

== ENCOUNTER → 2020-05-17 11:16 | Outpatient (CLI) | payer MEDICARE, SELFPAY ==
[2020-05-17 13:10] LABS: Glucose Fasting 88 mg/dL (80-110)
[2020-05-17 13:59] LABS: Vitamin B12 622 pg/mL (239-931)
[2020-05-17 14:28] LABS: Glucose Tol Interpretation INTERPRETATION
[2020-05-17 15:43] LABS: Glucose 2 Hour 124 mg/dL (70-140)
[2020-05-17 15:44] LABS: Glucose 1 Hour 91 mg/dL (70-170)
[2020-05-19 18:07] LABS: Vitamin B6 4.3 ug/L (2.0-32.8)
[2020-05-21 14:51] LABS: Immunoglobulin A, Serum 245 mg/dL (64-422); Immunoglobulin G,Serum 1176 mg/dL (586-1602); Immunoglobulin M, Serum 106 mg/dL (26-217)
[2020-05-22 18:36] LABS: Methylmalonic Acid,Serum 270 nmol/L (0-378)
== END ==
PROVIDERS: PCP Family Medicine
DX: G62.9 Polyneuropathy, unspecified (principal)
CPT/HCPCS: 36415; 82607; 82784; 82951; 82952; 83921; 84155; 84207; 86334

== ENCOUNTER → 2021-05-02 14:03 | Outpatient (CLI) | payer MEDICARE, SELFPAY ==
--- NOTE | 2021-05-02 14:07 | DI.MG.S_ITS ---
BILATERAL DIGITAL SCREENING MAMMOGRAM 3D/2D WITH CAD: 05/02/2021 CLINICAL: Routine screening. Comparison is made to exams dated: 04/11/2020 mammogram, 04/06/2019 mammogram, and 12/17/2009 mammogram - [facility]. There are scattered fibroglandular elements in both breasts. Current study was also evaluated with a Computer Aided Detection (CAD) system. No significant masses, calcifications, or other findings are seen in either breast. There has been no significant interval change. IMPRESSION: NEGATIVE There is no mammographic evidence of malignancy. A 1 year screening mammogram is recommended. This exam was interpreted at Station ID: [id number]. NOTE: For mammograms, a report in lay terms will be sent to the patient. Approximately 15% of breast malignancies will not be visualized mammographically. In the management of a palpable breast mass, a negative mammogram must not discourage biopsy of a clinically suspicious lesion. Electronically Signed By: Anitha dockery/sherly:05/02/2021 15:14:28 letter sent: Normal Exam ACR BI-RADS Category 1: Negative [id number]
== END ==
PROVIDERS: PCP Family Medicine; Referring Provider Physician Assistant; Visit Provider Physician Assistant
DX: Z12.31 Encounter for screening mammogram for malignant neoplasm of breast (principal)
CPT/HCPCS: 77063; 77067

== ENCOUNTER → 2021-05-24 11:43 | Outpatient (CLI) | payer MEDICARE, SELFPAY ==
--- NOTE | 2021-05-24 | DI.RAD.S_ITS ---
PROCEDURE: XR HAND LT 2V INDICATIONS: LEFT HAND PAIN TECHNIQUE: 3 views of the hand(s) acquired. COMPARISON: None. FINDINGS: Bones: Diffuse osteopenia. Diffuse interphalangeal joint degeneration. No acute fracture although exam sensitivity limited by diffuse arthritic changes. 1st CMC and triscaphe joint degeneration. Soft tissues: No suspicious soft tissue calcifications. IMPRESSION: Diffuse chronic degenerative changes and osteopenia. If the patient's pain or other symptoms persist, consider further evaluation with MRI Dictated by: Paul Haney M.D. on 05/24/2021 at 14:36 Approved by: Paul Haney M.D. on 05/24/2021 at 14:38
== END ==
PROVIDERS: PCP Family Medicine; Referring Provider Family Medicine; Visit Provider Family Medicine
DX: M79.642 Pain in left hand (principal); M85.842 Other specified disorders of bone density and structure, left hand
CPT/HCPCS: 73120

== ENCOUNTER 2021-07-03 13:18 | Inpatient (IN) | payer MEDICARE, SELFPAY ==
[2021-07-03] VITALS (13 sets, daily range): BP systolic 102–168; BP diastolic 52–95; PULSE 77–122; RESP 12–26; TEMP 35.9–37.2; O2SAT 93–98; BMI 30.2
--- NOTE | 2021-07-03 | DI.RAD.S_ITS ---
PROCEDURE: XR HIP W PEL IF DONE LT 2V INDICATIONS: OR IMAGES; INTERTROCHANTERIC FRACTURE; LEFT TECHNIQUE: AP pelvis with lateral view(s) of the left hip(s). COMPARISON: [facility], , XR HIP W PEL IF DONE LT 2V, 07/03/2021, 13:37. FINDINGS: Bones: Intraoperative images demonstrate postsurgical changes compatible with ORIF of intertrochanteric left femur fracture. Intramedullary jay and dynamic compression screw in place. Soft tissues: The visualized bowel gas pattern is normal. No suspicious soft tissue calcifications. IMPRESSION: Expected postsurgical change for ORIF of left femur fracture. Dictated by: Denia Olsen MD, PhD on 07/03/2021 at 19:55 Approved by: Denia Olsen MD, PhD on 07/03/2021 at 19:56
--- NOTE | 2021-07-03 13:39 | DI.RAD.S_ITS ---
PROCEDURE: XR HIP W PEL IF DONE LT 2V INDICATIONS: Left hip pain after fall TECHNIQUE: AP pelvis with lateral view(s) of the left hip(s). COMPARISON: [facility], , [id number] W PEL IF PERFORMED, 10/09/2016, 18:39. FINDINGS: Bones: There is a nondisplaced intertrochanteric fracture. No dislocations. Pelvic ring appears intact. No suspicious bony lesions. Postsurgical changes in the lower lumbar spine. Soft tissues: The visualized bowel gas pattern is normal. No suspicious soft tissue calcifications. IMPRESSION: Intertrochanteric fracture of the left proximal femur. Dictated by: Arik Emery M.D. on 07/03/2021 at 14:27 Approved by: Arik Emery M.D. on 07/03/2021 at 14:28
--- NOTE | 2021-07-03 13:39 | ED.FALL ---
HPI - Fall General Chief Complaint: Fall Stated Complaint: fell off step stool Time Seen by Provider: 07/03/21 13:21 Source: patient and EMS Mode of arrival: EMS History of Present Illness HPI Narrative: Patient is a 80 year old female who is here for evaluation of a left hip pain. She arrived by EMS. She states that she was standing on a step stool in her kitchen when the stepstool folded in on itself. She fell in she thinks she landed on her left hip but is unsure. Unable to stand afterwards. Did not hit her head. Other than pain in her left hip reports no other injuries. She was placed in a pelvic binder prior to arrival. Patient declined the offer for any pain medication. Related Data Home Medications Medication Instructions Recorded Confirmed lovastatin 20 mg tablet 40 mg PO QDAYPM #1 07/02/08 04/08/18 [L THYROXINE] 75 QDAY #0 11/25/11 04/08/18 sumatriptan succinate 4 mg/0.5 mL 4 mg SQ #0 10/09/16 04/08/18 subcutaneous cartridge (refill) (Imitrex STATdose Refill) atorvastatin 20 mg tablet (Lipitor) 20 mg PO QDAY #0 08/25/17 04/08/18 levothyroxine 75 mcg tablet 0.075 mg PO QDAY #0 08/25/17 04/08/18 (Synthroid) omeprazole 20 mg capsule,delayed 20 mg PO QDAY #0 08/25/17 04/08/18 release propranolol 60 mg capsule,24 60 mg PO QDAY #0 09/01/17 04/08/18 hr,extended release (Inderal LA) Previous Rx's Medication Instructions Recorded propranolol 40 mg tablet 40 mg PO .qd #30 tab 04/08/18 acetaminophen 500 mg tablet 500 mg PO Q6H PRN #14 tab 01/16/20 (Tylenol Extra Strength) ciprofloxacin HCl 500 mg tablet 500 mg PO BID #10 tab 01/16/20 omeprazole 20 mg capsule,delayed 20 mg PO DAILY #20 cap 01/16/20 release ondansetron HCl 4 mg tablet 4 mg PO Q8H #30 tab 01/16/20 (Zofran) Allergies Allergy/AdvReac Type Severity Reaction Status Date / Time amoxicillin [From Augmentin] Allergy Unknown Verified 04/08/18 15:13 clavulanic acid Allergy Unknown Verified 04/08/18 15:13 [From Augmentin] prednisone [PREDNISONE] Allergy Unknown Verified 04/08/18 15:13 Review of Systems Constitutional Constitutional: Denies headache(s) ENT Ears, Nose, Mouth, and Throat: Denies headache(s) Cardiovascular Cardiovascular: Reports system reviewed and no additional complaints, except as documented Respiratory Respiratory: Reports system reviewed and no additional complaints, except as documented Gastrointestinal Gastrointestinal: Reports system reviewed and no additional complaints, except as documented Musculoskeletal Comments: Left hip pain Neurologic Neurologic: Reports system reviewed and no additional complaints, except as documented and Denies headache(s) Hematologic/Lymphatic On Anticoagulants: No Patient History Medical History Elevated blood pressure reading Hypothyroid Social History Smoking Status: Never smoker Smoking Status: Never smoker alcohol intake frequency: holidays/special occasions only Substance Use Type: does not use Exam Initial Vital Signs Initial Vital Signs: Vital Signs Temperature 97.7 F 07/03/21 13:29 Pulse Rate 77 07/03/21 13:29 Respiratory Rate 22 07/03/21 13:29 Blood Pressure 168/82 H 07/03/21 13:29 Pulse Oximetry 94 07/03/21 13:29 Const General: cooperative, healthy appearing and comfortable [facility] Head: normal to inspection and normocephalic Eyes General: appearance normal, both eyes and all related structures Resp Effort & Inspection: normal respiratory effort Auscultation: clear to auscultation bilaterally Cardio Rate: regular rate Rhythm: regular rhythm GI Inspection: normal to inspection Skin General: no rashes or lesions noted Neuro General: patient alert, patient awake, patient oriented x3 and moves all extremities Extrem General: normal to inspection and capillary refill normal Other: Patient with tenderness to palpation throughout the left hemipelvis. Her right lower extremities unremarkable. Her left knee and left ankle unremarkable. Her upper extremities unremarkable. Psych Appearance: grossly normal and well kempt Course Orders Ordered: ED Orders 07/03/21 13:39 XR hip w pel if done LT 2V Stat 07/03/21 14:19 Consult to Orthopedic Surgery Stat COVID19 - ADMIT ([employer] swab/PCR) Stat 07/03/21 14:20 Type and Screen Stat 07/03/21 14:22 Basic Metabolic Panel Stat Complete Blood Count AUTO DIFF Stat Partial Thromboplastin Time Stat Prothrombin Time INR Stat Sodium Chloride (Normal Saline 0.9%) 1,000 mls @ 125 mls/hr IV CONT NICOLAS Vital Signs Vital signs: Vital Signs - 8 hr 07/03/21 13:29 07/03/21 14:12 Temperature 97.7 F Pulse Rate 77 82 Respiratory Rate 22 20 Blood Pressure 168/82 H 134/95 H Pulse Oximetry 94 94 MDM - Fall Lab Data Attestation: I reviewed the patient's lab results. Result diagrams: 07/03/21 14:22 07/03/21 14:22 Labs: Lab Results 07/03/21 07/03/21 07/03/21 Range/Units 14:22 14:22 14:22 WBC 9.3 (4.5-11.0) X10^3/uL RBC 4.89 (4.0-5.2) X10^6/uL Hgb 13.6 (12.0-16.0) g/dL Hct 42.5 (36-46) % MCV 86.9 (80-100) fL MCH 27.8 (26-34) PG MCHC 32.0 (30-36) % RDW 15.0 H (11.6-14.8) % Plt Count 289 (150-400) X10^3/uL Neut % (Auto) 63.2 (50-75) % Lymph % (Auto) 23.3 L (25-40) % [place] % (Auto) 10.0 (3-14) % Eos % (Auto) 2.6 (2-4) % Baso % (Auto) 0.9 (0-2) % Neut # (Auto) 5900 (2247-1875) /uL Lymph # (Auto) 2200 (5766-2132) /uL [place] # (Auto) 900 (0-900) /uL Eos # (Auto) 200 (0-450) /uL Baso # (Auto) 100 (0-100) /uL PT 10.8 (10.1-12.7) SECONDS INR 1.0 (0.9-1.3) APTT 37 H (26.4-36.2) SECONDS Sodium 136 L (137-145) mmol/L Potassium 4.0 (3.4-5.1) mmol/L Chloride 103 (98-107) mmol/L Carbon Dioxide 23 (22-32) mmol/L BUN 30 H (7-17) mg/dL Creatinine 1.07 H (0.52-1.04) mg/dL Estimated GFR 49.5 L (>60) mL/min BUN/Creatinine Ratio 28.0 H (6-22) Glucose 130 H (80-110) mg/dL Calcium 10.9 H (8.4-10.2) mg/dL Imaging Data Extremity x-ray #1: Radiologist's Impression: [address] [address] XRay Report Signed Patient: Maira Galicia MR#: [id number] : 1940 Acct:[id number] Age/Sex: 80 / F Date of Service: 07/03/21 Loc: ED Accession Number: [id number] ?? Procedure: XR hip w pel if done LT 2V Ordering Provider: Koffi Alexander D.O. PROCEDURE:? XR HIP W PEL IF DONE LT 2V ? INDICATIONS:? Left hip pain after fall ? TECHNIQUE:? AP pelvis with lateral view(s) of the left hip(s).? ? COMPARISON:? [facility], CR, [id number] W PEL IF PERFORMED, 10/09/2016, 18:39. ? FINDINGS:? ? Bones:? There is a nondisplaced intertrochanteric fracture.? No dislocations.? Pelvic ring appears intact.? No suspicious bony lesions.? Postsurgical changes in the lower lumbar spine. ? Soft tissues:? The visualized bowel gas pattern is normal.? No suspicious soft tissue calcifications.? ? ? IMPRESSION:? Intertrochanteric fracture of the left proximal femur. ? Dictated by: Arik Emery M.D. on 07/03/2021 at 14:27 ? ? Approved by: Arik Emery M.D. on 07/03/2021 at 14:28? [facility] Narrative Medical decision making narrative: Patient does have a left-sided intertrochanteric hip fracture. No other injuries reported from the fall. Patient declined multiple offers of pain medication. Discussed the case with Dr. Hairston on-call with orthopedic surgery. Will evaluate the patient as a inpatient for surgery. Discussed the case with Dr. Rodriguez who is the patient's primary provider who will admit for further evaluation and treatment. I did discuss the findings of the x-ray with the patient and the need for surgery. She expressed understanding and agreement. Discharge Plan Departure Patient Disposition: Admitted as Observation Clinical Impression: Intertrochanteric fracture of left hip Admit Date/Time: 07/03/21 14:46 Admit Provider: Phil Rodriguez
[2021-07-03 14:25] LABS: Add Manual Diff / Slide Review NO; Basophils Absolute Auto 100 /uL (0-100); Basophils Percent Auto 0.9 % (0-2); Eosinophils Absolute Auto 200 /uL (0-450); Eosinophils Percent Auto 2.6 % (2-4); Hematocrit 42.5 % (36-46); Hemoglobin 13.6 g/dL (12.0-16.0); Lymphocytes Absolute Auto 2200 /uL (1100-4500); Lymphocytes Percent Auto 23.3 % (25-40); Mean Corpuscular Hemoglobin 27.8 PG (26-34); Mean Corpuscular Volume 86.9 fL (80-100); Monocytes Absolute Auto 900 /uL (0-900); Neutrophils Absolute Auto 5900 /uL (1500-7000); Neutrophils Percent Auto 63.2 % (50-75); Platelet Count 289 X10^3/uL (150-400); Red Blood Cell Count 4.89 X10^6/uL (4.0-5.2); White Blood Cell Count 9.3 X10^3/uL (4.5-11.0)
[2021-07-03 14:27] LABS: Prothrombin Time 10.8 SECONDS (10.1-12.7)
[2021-07-03 14:29] LABS: PTT Partial Thromboplastin Tim 37 SECONDS (26.4-36.2)
[2021-07-03 14:32] LABS: Blood Urea Nitrogen 30 mg/dL (7-17); Calcium 10.9 mg/dL (8.4-10.2); Carbon Dioxide 23 mmol/L (22-32); Chloride 103 mmol/L (98-107); Estimated Glomerular Filt Rate 49.5 mL/min (>60); Glucose 130 mg/dL (80-110); HEMOLYSIS 26 (0-50); Sodium 136 mmol/L (137-145)
[2021-07-03] MEDS: SODIUM CHLORIDE 0.9% 1,000 ML 125 ML IV (15:00)
--- NOTE | 2021-07-03 15:28 | PM.HP.1 ---
History of Present Illness History of Present Illness Date Patient Seen: 07/03/21 Time Patient Seen: 15:29 Date of Onset of Symptoms: 07/03/21 Chief complaint: fell off step stool Narrative: Pt presents to ED with acute L hip pain after stool malfunctioned while standing on it in kitchen this afternoon. She has been in good health the stool just broke under her weight. XR showed acute intertrochanteric fracture which orthopedics is proposing to address. She is not on blood thinners and her last oral intake was this morning about 1030am. She feels generally ok except for the pain in her leg which is ok as long as she doesn't move it in the slightest. Patient History Medical History Elevated blood pressure reading Hypothyroid Family & Social History Safety & Behavioral: Feels Safe in Current Yes Environment Been Physically Hurt or No Threatened By a Person Tobacco & Substance use: Smoking Status Never smoker alcohol intake frequency holiday/special occasion Substance Use Type does not use Meds Home Medications and Allergies Home Medications Medication Instructions Recorded Confirmed Type lovastatin 20 mg tablet 40 mg PO QDAYPM #1 07/02/08 04/08/18 History [L THYROXINE] 75 QDAY #0 11/25/11 04/08/18 History sumatriptan succinate 4 mg/0.5 mL 4 mg SQ #0 10/09/16 04/08/18 History subcutaneous cartridge (refill) (Imitrex STATdose Refill) atorvastatin 20 mg tablet (Lipitor) 20 mg PO QDAY #0 08/25/17 04/08/18 History levothyroxine 75 mcg tablet 0.075 mg PO QDAY #0 08/25/17 04/08/18 History (Synthroid) omeprazole 20 mg capsule,delayed 20 mg PO QDAY #0 08/25/17 04/08/18 History release propranolol 60 mg capsule,24 60 mg PO QDAY #0 09/01/17 04/08/18 History hr,extended release (Inderal LA) propranolol 40 mg tablet 40 mg PO .qd #30 tab 04/08/18 Rx acetaminophen 500 mg tablet 500 mg PO Q6H PRN #14 tab 01/16/20 Rx (Tylenol Extra Strength) ciprofloxacin HCl 500 mg tablet 500 mg PO BID #10 tab 01/16/20 Rx omeprazole 20 mg capsule,delayed 20 mg PO DAILY #20 cap 01/16/20 Rx release ondansetron HCl 4 mg tablet 4 mg PO Q8H #30 tab 01/16/20 Rx (Zofran) Allergies Allergy/AdvReac Type Severity Reaction Status Date / Time amoxicillin [From Augmentin] Allergy Unknown Verified 04/08/18 15:13 clavulanic acid Allergy Unknown Verified 04/08/18 15:13 [From Augmentin] prednisone [PREDNISONE] Allergy Unknown Verified 04/08/18 15:13 Review of Systems Review of Systems Narrative: all systems reviewed and negative except as otherwise documented in HPI Exam Vital Signs (past 8 hours): - 07/03/21 13:29 07/03/21 14:12 Temperature 97.7 F Pulse Rate 77 82 Respiratory Rate 22 20 Blood Pressure 168/82 H 134/95 H Pulse Oximetry 94 94 Oxygen Delivery Method Room Air Narrative Exam Narrative: cheerful elderly female lying in bed with son at bedside Const General: cooperative, healthy appearing and comfortable (as long as leg is not moved) Eyes General: appearance normal, both eyes and all related structures Neck Neck: normal visual inspection, full ROM, trachea midline and No lymphadenopathy Resp Effort & Inspection: normal respiratory effort Auscultation: clear to auscultation bilaterally Cardio Rate: regular rate Rhythm: regular rhythm Heart Sounds: S1 normal and S2 normal GI Inspection: normal to inspection Palpation: soft Auscultation: normal bowel sounds Skin General: no rashes or lesions noted Extrem Other: LLE with sensation and dorsal pedal pulse intact exquisitely painful to move Psych Appearance: grossly normal and well kempt Mental Status: mental status grossly normal Mood: congruent mood Thought Process: normal Thought Content: normal Judgment: judgment good Objective Labs Result Diagrams: 07/03/21 14:22 07/03/21 14:22 Labs: Laboratory Results - last 24 hr 07/03/21 07/03/21 07/03/21 14:22 14:22 14:22 WBC 9.3 RBC 4.89 Hgb 13.6 Hct 42.5 MCV 86.9 MCH 27.8 MCHC 32.0 RDW 15.0 H Plt Count 289 Neut % (Auto) 63.2 Lymph % (Auto) 23.3 L [place] % (Auto) 10.0 Eos % (Auto) 2.6 Baso % (Auto) 0.9 Neut # (Auto) 5900 Lymph # (Auto) 2200 [place] # (Auto) 900 Eos # (Auto) 200 Baso # (Auto) 100 PT 10.8 INR 1.0 APTT 37 H Sodium 136 L Potassium 4.0 Chloride 103 Carbon Dioxide 23 BUN 30 H Creatinine 1.07 H Estimated GFR 49.5 L BUN/Creatinine Ratio 28.0 H Glucose 130 H Calcium 10.9 H Assessment & Plan Assessment & Plan narrative: #acute intertrochanteric L hip fracture #s/p fall from stool above ground level distal NV intact pt does not seem concussed Ortho is proposing to take pt to OR today which sounds great if possible Pt represents moderate/reasonable surgical risk mostly on basis of age I do not see obstacles to proceeding with surgery NPO ordered with prn pain meds and NS via IVF #hypothyroid stable continue home levothyroxin 88mcg #hyperlipidemia stable continue home atorvastatin 20 #hypertension mild stable continue home propranolol 40 #migraines very rare issue continue prn imitrex #hx of gout takes allopurinol at home 100 #neuropathy ok to continue home pregabalin Diet: NPO strict DVT ppx: SCDs, lovenox ordered for am Code status: Full code MDM: destin Richardson [phone] PCP: Jennifer Time Spent With Patient Critical Care time: I spent a total of [] minutes of critical care time on this patient's care today; this time is exclusive of procedural time.
[2021-07-03 16:41] LABS: COVID19 - ADMIT (NP swab/PCR) Negative (Negative)
--- NOTE | 2021-07-03 18:12 | PM.HP.1 ---
History of Present Illness History of Present Illness Date Patient Seen: 07/03/21 Time Patient Seen: 18:13 Date of Onset of Symptoms: 07/03/21 Chief complaint: fell off step stool Narrative: The patient is a 80-year-old female with a history of hypertension that had a fall today when a step stool collapsed under her. She was unable to ambulate. She was brought to [facility]. X-rays were taken demonstrated a left intertrochanteric hip fracture. Patient was admitted to the internal medicine service and Orthopedic surgery was consulted. Her last meal was at 10:30 a.m. she normally lives alone is a community ambulator. History of prior back surgery. No history of hip pain. Patient History Medical History Elevated blood pressure reading Hypothyroid Family & Social History Social History: Lives alone Safety & Behavioral: Feels Safe in Current Yes Environment Been Physically Hurt or No Threatened By a Person Tobacco & Substance use: Smoking Status Never smoker alcohol intake frequency holiday/special occasion Substance Use Type does not use Meds Home Medications and Allergies Home Medications Medication Instructions Recorded Confirmed Type lovastatin 20 mg tablet 40 mg PO QDAYPM #1 07/02/08 04/08/18 History [L THYROXINE] 75 QDAY #0 11/25/11 04/08/18 History sumatriptan succinate 4 mg/0.5 mL 4 mg SQ #0 10/09/16 04/08/18 History subcutaneous cartridge (refill) (Imitrex STATdose Refill) atorvastatin 20 mg tablet (Lipitor) 20 mg PO QDAY #0 08/25/17 04/08/18 History levothyroxine 75 mcg tablet 0.075 mg PO QDAY #0 08/25/17 04/08/18 History (Synthroid) omeprazole 20 mg capsule,delayed 20 mg PO QDAY #0 08/25/17 04/08/18 History release propranolol 60 mg capsule,24 60 mg PO QDAY #0 09/01/17 04/08/18 History hr,extended release (Inderal LA) propranolol 40 mg tablet 40 mg PO .qd #30 tab 04/08/18 Rx acetaminophen 500 mg tablet 500 mg PO Q6H PRN #14 tab 01/16/20 Rx (Tylenol Extra Strength) ciprofloxacin HCl 500 mg tablet 500 mg PO BID #10 tab 01/16/20 Rx omeprazole 20 mg capsule,delayed 20 mg PO DAILY #20 cap 01/16/20 Rx release ondansetron HCl 4 mg tablet 4 mg PO Q8H #30 tab 01/16/20 Rx (Zofran) Allergies Allergy/AdvReac Type Severity Reaction Status Date / Time amoxicillin [From Augmentin] Allergy Unknown Verified 04/08/18 15:13 clavulanic acid Allergy Unknown Verified 04/08/18 15:13 [From Augmentin] prednisone [PREDNISONE] Allergy Unknown Verified 04/08/18 15:13 Review of Systems Review of Systems Narrative: Left hip pain otherwise normal. No history of loss of consciousness. Shortness of breath no numbness or tingling no nausea vomiting no chest pain ROS: Yes All systems reviewed with the patient and are negative except as otherwise documented Exam Vital Signs (past 8 hours): - 07/03/21 13:29 07/03/21 14:12 07/03/21 17:23 Temperature 97.7 F Pulse Rate 77 82 94 H Respiratory Rate 22 20 20 Blood Pressure 168/82 H 134/95 H Pulse Oximetry 94 94 98 Oxygen Delivery Method Room Air Narrative Exam Narrative: Patient alert and oriented no acute distress although lying on her right side in the stretcher HEENT exam normocephalic atraumatic Respiratory exam lungs clear to auscultation bilaterally CV exam regular rate and rhythm Moving bilateral upper extremities freely. Has an essential tremor. Right lower extremity nontender normal range of motion though limited by patient positioning on her right side Left lower extremity demonstrates tenderness at the hip. Thigh is soft. Lower leg compartments are soft. Demonstrates dorsiflexion plantar flexion and wiggles her toes. Palpable dorsalis pedis pulse. Sensation grossly intact to light touch Objective Labs Result Diagrams: 07/03/21 14:22 07/03/21 14:22 Labs: Laboratory Results - last 24 hr 07/03/21 07/03/21 07/03/21 14:22 14:22 14:22 WBC 9.3 RBC 4.89 Hgb 13.6 Hct 42.5 MCV 86.9 MCH 27.8 MCHC 32.0 RDW 15.0 H Plt Count 289 Neut % (Auto) 63.2 Lymph % (Auto) 23.3 L [place] % (Auto) 10.0 Eos % (Auto) 2.6 Baso % (Auto) 0.9 Neut # (Auto) 5900 Lymph # (Auto) 2200 [place] # (Auto) 900 Eos # (Auto) 200 Baso # (Auto) 100 PT 10.8 INR 1.0 APTT 37 H Sodium 136 L Potassium 4.0 Chloride 103 Carbon Dioxide 23 BUN 30 H Creatinine 1.07 H Estimated GFR 49.5 L BUN/Creatinine Ratio 28.0 H Glucose 130 H Calcium 10.9 H SARS-CoV-2 (PCR) Blood Type Antibody Screen 07/03/21 07/03/21 14:50 14:55 WBC RBC Hgb Hct MCV MCH MCHC RDW Plt Count Neut % (Auto) Lymph % (Auto) [place] % (Auto) Eos % (Auto) Baso % (Auto) Neut # (Auto) Lymph # (Auto) [place] # (Auto) Eos # (Auto) Baso # (Auto) PT INR APTT Sodium Potassium Chloride Carbon Dioxide BUN Creatinine Estimated GFR BUN/Creatinine Ratio Glucose Calcium SARS-CoV-2 (PCR) Negative Blood Type A Positive Antibody Screen Positive Imaging AP pelvis and left lateral hip demonstrate intertrochanteric fracture left proximal femur Assessment & Plan Assessment and plan (1) Intertrochanteric fracture of left hip: Status: Acute Plan: Patient is a left intertrochanteric hip fracture. She has been indicated for surgery. We discussed the morbidity and mortality of a hip fracture and indications for surgery of to promote early mobility immediate weight-bearing and reduced the morbidity of a hip fracture and prolonged bedrest. The risks and benefits of the procedure have been discussed with the patient even opportunity to ask questions. The risks of surgery include but are not limited to infection, malunion, nonunion, persistence of pain, damage to nerves and blood vessels, posttraumatic arthritis, DVT, PE, cardiopulmonary complications and . The patient expressed a thorough understanding of the risks and benefits of surgery and has elected to proceed. Consent was michael. Further discussed that because she lived at home is highly likely she will require mcfp. She will work with physical therapy after surgery to evaluate her needs. She will require anticoagulation after surgery due to the risk of blood clots. We discussed if she ambulates well this can be on aspirin otherwise with the Lovenox x4 weeks. She will have preoperative antibiotic dosing. She has a allergy to amoxicillin but cannot remember what this is. Will use clindamycin 900 COVID-19 COVID-19 status: Negative Time Spent With Patient Time with patient: less than 30 minutes Critical Care time: I spent a total of [] minutes of critical care time on this patient's care today; this time is exclusive of procedural time. Quality VTE Deep Vein Thrombosis/Pulmonary Embolism Present on Admission: No
[2021-07-03] MEDS: LACTATED RINGERS 1,000 ML 42 ML IV (18:23)
[2021-07-03] MEDS: CLINDAMYCIN 900 MG/50 ML PIGGYBACK 50 MG IV (18:30)
--- NOTE | 2021-07-03 19:06 | SUR.OPER ---
Supine on padded Edgard table with bilateral legs secured in padded positioning boots and suspended in positioning spars, operative leg in traction per surgeon. Head on one pillow. Arm on non-operative side secured on padded armboard <90 degrees abduction. Arm on operative side padded and resting across chest then secured with tape over sheet. Padded perineal post in place per surgeon.
[2021-07-03] MEDS: TRANEXAMIC ACID 1,000 MG in SODIUM CHLORIDE 0.9% 100 ML 200 ML IV (19:41)
[2021-07-03] MEDS: BUPIVACAINE 0.25% (PF) VIAL 30 ML INJ (19:42)
[2021-07-03] MEDS: HYDROMORPHONE 2 MG INJ IV ×2 (19:59→20:08)
[2021-07-03] MEDS: ONDANSETRON 4 MG/2 ML INJ IV (20:10)
--- NOTE | 2021-07-03 20:15 | PM.OP.1 ---
Operative Date/Time/Diagnoses Date of procedure: 07/03/21 Time of procedure: 18:57 Pre-op diagnosis: Left hip intertrochanteric fracture S72.142 Post-op diagnosis: same Procedure & Clinicians Procedure: Intramedullary nailing left intertrochanteric hip fracture CPT code 60969 Same procedure as scheduled: Yes Indications: Patient is a 80-year-old female that sustained a left intertrochanteric hip fracture and was indicated for operative fixation. The risks benefits and alternatives to the procedure were discussed with the patient. These included bleeding, infection, damage to nerves, pain, malunion, nonunion, blood clots, pulmonary embolism, cardiovascular risk associated with general anesthesia and symptomatic hardware. Consent was signed. Surgeon: Viji Rangel Click Yes if Unassisted: No Anesthesia Type: General and Local Operative Notes Findings: For the left intertrochanteric hip fracture. Internal fixation was performed with a 10 x 18 Olivier and Nephew short intertrochanteric nail Closure Type: primary Specimen(s): none sent Prosthetic devices, grafts, tissues, transplants, or devices: Olivier and nephew inter ye nail 10 x 18 with lag screw 95 mm and integrated compression screw 90 mm. Locking screw was 32.5 x 5mm Applied: catheter Estimated Blood Loss (mL): 100 Blood products transfused: none Tourniquet time (min): 0 Procedure in detail: Patient was seen and the site of surgery was marked in the preoperative area. This was the left hip. Patient was then brought to the operating room and general anesthesia was administered. Patient was then positioned supine on a fracture table. Patient was positioned and all bony prominences well padded. Well-padded boots were placed in a padded peroneal post. Formal time-out was called to confirm the patient's side and site of surgery administration of appropriate, antibiotics and presence of appropriate instrumentation. All personnel agreed. Operative leg was then gently manipulated under fluoroscopic guidance to obtain a closed reduction in near anatomic alignment. At this point the operative extremity was prepped and draped in standard sterile fashion. A guidewire was placed percutaneously in the starting point obtained. Small incision was then made over the guidewire. Opening drill was inserted to the level of the lesser trochanter. A 10mm x 18 cm nail was selected and placed across the fracture. Nail was advanced to the proper depth and rotation and then the cephalomedullary screws were inserted in the standard fashion. Incision was made for this through the guide and placed down to the bone. The guidewire was placed to the proper depth and confirmed on AP and lateral imaging. The tip apex distance was evaluated and appropriate. The outer cortex was drilled for the interlocking screw and the anti rotation bar then placed. Cephalomedullary screw length was then measured off the drill. This measured a 100 so a 95 x 90 screw screw combination was selected to allow some compression. The guidewire was then overdrilled in the lying screw placed. The anti rotation bar was removed and the locking compression screw was placed and confirmed on biplanar fluoroscopy. The integrated compression screw was tightened. Attention was turned to the distal interlock screw. This was placed through the guide and a 32.5 mm screw was utilized. The jig was removed. AP and lateral images were captured in the OR confirming anatomic alignment and appropriate hardware placement. Wounds were then irrigated and closed in layers with 2-0 Vicryl and bridgette in the skin. Sterile dressings were applied. There no immediate complications. Surgical counts were correct. The patient tolerated the procedure well and was taken to recovery room. Complications: none Post-operative Condition: stable Disposition: PACU Plan for aftercare: Patient will be weightbear as tolerated the left lower extremity. For DVT prophylaxis she will use SCDs on the floor and Lovenox 40 mg subcutaneous daily starting postop day 1. She will be discharged with 4 weeks of Lovenox for a total of 28 days. Follow-up in 2 weeks in Orthopedic Clinic for repeat x-rays and staple removal.
[2021-07-03] MEDS: OXYCODONE IR 5 MG TABLET PO ×2 (20:24→20:56)
[2021-07-03] MEDS: ACETAMINOPHEN 325 MG TABLET 975 MG PO (20:34)
--- NOTE | 2021-07-03 21:17 | SUR.PHASEI ---
Pt arrived c/o pain to l hip and back. repositioned multiple times, finally got comfortable on r side near railing. Pt medicated with dilaudid and oxycodone and ondansetron x 1 for nausea. Nausea resolved and pain from 9/10 down to 6/10. RN not available for report at 0835, called back at 0850, pt transported up to room 210 on 3/l nasal cannula. Left in room with CELESTINO Arceo in stable condition. Son at bedside, supportive. Bed low, locked SCD's on and call light in reach, made aware to call for assist before getting OOB..
[2021-07-03] MEDS: LACTATED RINGERS 1,000 ML 84 ML IV (21:39)
--- NOTE | 2021-07-03 22:07 | PC.NURSE ---
Addendum entered by Marielos Desouza R.N. 07/03/21 23:12: Resting quietly in bed on right side with head of bed slightly elevated. [address] with continuous monitor 95% on 3L/min. Meyer to gravity. No emesis. Right side of body not assessed as pt prefers this positioning immediately postop to manage pain 2/10 left hip. Original Note: Pt to room 210 from PACU drowsy, but rousable. 02 @ 3L/min per nc with oxygen saturation level 95%. States pain to left hip, Isn't bad. Pt does c/o intermittent nausea with sips of water. INTERNET RESEARCHER states pt did receive zofran intraop. Encouraged ice chips and these were provided. Meyer to gravity. Pt's mentation is appropriate. Able to express needs and desires. BL calf scd's in place. Pt arrived with ice to back and ice to left hip. Dressings x 2 intact to left hip without drainage. Pt prefers right side lying position and arrived from PACU in this position.
[2021-07-04] MEDS: CLINDAMYCIN 900 MG/50 ML PIGGYBACK 50 MG IV ×2 (02:09→10:18)
[2021-07-04] MEDS: IBUPROFEN 400 MG TABLET PO ×2 (02:22→19:07)
[2021-07-04 04:50] VITALS: BP 99/52; PULSE 94; RESP 16; TEMP 36.1; O2SAT 98
[2021-07-04 05:44] LABS: Add Manual Diff / Slide Review NO; Basophils Absolute Auto 0 /uL (0-100); Eosinophils Absolute Auto 0 /uL (0-450); Hematocrit 33.8 % (36-46); Hemoglobin 10.7 g/dL (12.0-16.0); Lymphocytes Absolute Auto 600 /uL (1100-4500); Lymphocytes Percent Auto 4.8 % (25-40); Mean Corpuscular HGB Conc 31.7 % (30-36); Mean Corpuscular Hemoglobin 27.6 PG (26-34); Monocytes Absolute Auto 500 /uL (0-900); Monocytes Percent Auto 3.6 % (3-14); Neutrophils Absolute Auto 11900 /uL (1500-7000); Neutrophils Percent Auto 91.6 % (50-75); Platelet Count 227 X10^3/uL (150-400); Red Blood Cell Count 3.88 X10^6/uL (4.0-5.2); White Blood Cell Count 12.9 X10^3/uL (4.5-11.0)
[2021-07-04 05:48] LABS: BUN Creatinine Ratio 29.6 (6-22); Blood Urea Nitrogen 29 mg/dL (7-17); Calcium 9.6 mg/dL (8.4-10.2); Carbon Dioxide 22 mmol/L (22-32); Chloride 102 mmol/L (98-107); Estimated Glomerular Filt Rate 54.7 mL/min (>60); Glucose 160 mg/dL (80-110); HEMOLYSIS < 15 (0-50); Potassium 4.5 mmol/L (3.4-5.1); Sodium 134 mmol/L (137-145)
[2021-07-04] MEDS: PANTOPRAZOLE DR 20 MG TABLET PO (05:58)
[2021-07-04] MEDS: LEVOTHYROXINE 88 MCG TABLET PO (05:58)
[2021-07-04 08:00] VITALS: BP 107/55; PULSE 82; RESP 18; TEMP 35.7; O2SAT 97
--- NOTE | 2021-07-04 08:54 | P.PN_ITS ---
Subjective Subjective Date Patient Seen: 07/04/21 Time Patient Seen: 08:55 Interval history: CC: my leg hurts Now s/p intertrochanteric nailing of L hip, appreciate ortho's kind attention to this matter. She is in a fair amount of pain this morning and has been refusing opiate meds but is amenable to some ketorolac She is not hungry but sipping fluids for breakfast did not sleep last night due to pain. Desires to work with Julia at [employer] on d/c, worked with them for her back previously Exam Vital Signs (past 8 hours): - 07/04/21 04:50 Temperature 97.0 F L Pulse Rate 94 H Respiratory Rate 16 Blood Pressure 99/52 L Pulse Oximetry 98 Oxygen Delivery Method Nasal Cannula Oxygen Flow Rate 3 Narrative Exam Narrative: lying in bed on R side Const General: cooperative and healthy appearing [facility] Head: normal to inspection, normocephalic and atraumatic Neck Neck: normal visual inspection Resp Auscultation: clear to auscultation bilaterally Cardio Rate: regular rate Rhythm: regular rhythm Heart Sounds: S1 normal and S2 normal GI Palpation: soft Auscultation: normal bowel sounds Extrem Other: LLE with operative incisions along lateral hip under clean dry dressings with no exudate or erythema. distal NV intact. Psych Mental Status: mental status grossly normal Speech and Movement: speech and movement normal Mood: congruent mood Judgment: judgment good Objective Labs Result Diagrams: 07/04/21 05:15 07/04/21 05:15 Labs: Laboratory Results - last 24 hr 07/03/21 07/03/21 07/03/21 14:22 14:22 14:22 WBC 9.3 RBC 4.89 Hgb 13.6 Hct 42.5 MCV 86.9 MCH 27.8 MCHC 32.0 RDW 15.0 H Plt Count 289 Neut % (Auto) 63.2 Lymph % (Auto) 23.3 L [place] % (Auto) 10.0 Eos % (Auto) 2.6 Baso % (Auto) 0.9 Neut # (Auto) 5900 Lymph # (Auto) 2200 [place] # (Auto) 900 Eos # (Auto) 200 Baso # (Auto) 100 PT 10.8 INR 1.0 APTT 37 H Sodium 136 L Potassium 4.0 Chloride 103 Carbon Dioxide 23 BUN 30 H Creatinine 1.07 H Estimated GFR 49.5 L BUN/Creatinine Ratio 28.0 H Glucose 130 H Calcium 10.9 H SARS-CoV-2 (PCR) Blood Type Antibody Screen Antibody Identification 07/03/21 07/03/21 07/04/21 14:50 14:55 05:15 WBC 12.9 H RBC 3.88 L Hgb 10.7 L Hct 33.8 L MCV 87.0 MCH 27.6 MCHC 31.7 RDW 15.0 H Plt Count 227 Neut % (Auto) 91.6 H D Lymph % (Auto) 4.8 L [place] % (Auto) 3.6 Eos % (Auto) 0.0 L Baso % (Auto) 0.0 Neut # (Auto) 13497 H Lymph # (Auto) 600 L [place] # (Auto) 500 Eos # (Auto) 0 Baso # (Auto) 0 PT INR APTT Sodium Potassium Chloride Carbon Dioxide BUN Creatinine Estimated GFR BUN/Creatinine Ratio Glucose Calcium SARS-CoV-2 (PCR) Negative Blood Type A Positive Antibody Screen Positive Antibody Identification Anti-E 07/04/21 05:15 WBC RBC Hgb Hct MCV MCH MCHC RDW Plt Count Neut % (Auto) Lymph % (Auto) [place] % (Auto) Eos % (Auto) Baso % (Auto) Neut # (Auto) Lymph # (Auto) [place] # (Auto) Eos # (Auto) Baso # (Auto) PT INR APTT Sodium 134 L Potassium 4.5 Chloride 102 Carbon Dioxide 22 BUN 29 H Creatinine 0.98 Estimated GFR 54.7 L BUN/Creatinine Ratio 29.6 H Glucose 160 H Calcium 9.6 SARS-CoV-2 (PCR) Blood Type Antibody Screen Antibody Identification [facility] Medical History Elevated blood pressure reading Hypothyroid Social History household members: significant other Smoking Status: Former smoker alcohol intake: former Assessment & Plan Assessment & Plan narrative: #acute intertrochanteric L hip fracture #s/p fall from stool above ground level s/p repair by ortho she is full weight bearing on that extremity NPO ordered with prn pain meds and NS via IVF, she does notn desire pain meds, recommending nsaids PT/RT consulted #hypothyroid stable continue home levothyroxin 88mcg #hyperlipidemia stable continue home atorvastatin 20 #hypertension mild stable continue home propranolol 40 #migraines very rare issue continue prn imitrex #hx of gout takes allopurinol at home 100 #neuropathy ok to continue home pregabalin Dispo: pending PT eval but home with HH? Diet: ADAT to regular DVT ppx: SCDs, lovenox Code status: Full code MDM: destin Richardson [phone] PCP: Jennifer Time Spent With Patient Critical Care time: I spent a total of [] minutes of critical care time on this patient's care today; this time is exclusive of procedural time. Quality VTE Deep Vein Thrombosis/Pulmonary Embolism Present on Admission: No
[2021-07-04] MEDS: ACETAMINOPHEN 325 MG TABLET 975 MG PO ×3 (10:00→20:35)
[2021-07-04] MEDS: ENOXAPARIN 40 MG/0.4 ML SYRINGE SUBCUT (10:00)
[2021-07-04] MEDS: DOCUSATE 100 MG CAPSULE PO ×2 (10:00→20:35)
[2021-07-04] MEDS: KETOROLAC 30 MG/ML VIAL 15 MG IV (10:12)
--- NOTE | 2021-07-04 10:35 | PT.IIE ---
Current Diagnoses Displaced intertrochanteric fracture of left femur, initial encounter for closed fracture (07/04/21) Surgery Performed Operation Date: 07/03/21 18:30 Actual Procedures p IM Nail Left Hip(Left) - Viji Rangel MD Medical History (Last Reviewed 07/04/21 @ 11:52 by Mary Arrieta PA-C) Elevated blood pressure reading Hypothyroid Physical Therapy Inpatient Evaluation/Re-Eval M1 PT/OT-IP Prior Functional Status Start: 07/04/21 12:26 Freq: NEEDED Status: Active Protocol: Document 07/04/21 10:35 AB (Rec: 07/04/21 12:43 AB [email or web address]) Medical Review Prior Functional Status Medical History Reviewed Yes Communication able to answer questions but with slight confusion and [place] Mobility and Gait son informed: pt was independent with all mobilities and ambulation without AD Social History Household Members significant other Living Arrangements House Number of Floors (Floors) One Floor Number of Stairs To Enter/Railing? 3 steps to enter with wide B rails and can only hold on to one rail at a time Home Environment Standard Height Toilet,Walk in Shower Home Equipment Front Wheel Walker,Four Wheel Walker,Straight Cane,Manual Wheelchair,Shower Seat with Backrest,Hand Held Shower,Grab Bars In Shower Additional Social History Comment son stated that pt's spouse is capable to providing pt assistance and that he also lives close to pt and can assist if needed. M2 PT-IP Current Condition Start: 07/04/21 12:26 Freq: NEEDED Status: Active Protocol: Document 07/04/21 10:35 AB (Rec: 07/04/21 12:43 AB [email or web address]) Physical Therapy Current Condition Current Condition Evaluation Date 07/04/21 Treatment Diagnosis L intertrochanteric hip fx s/p nailing; difficulty in walking Onset Date 07/03/21 M3 PT-IP Subjective Start: 07/04/21 12:26 Freq: NEEDED Status: Active Protocol: Document 07/04/21 10:35 AB (Rec: 07/04/21 12:43 AB [email or web address]) Subjective Physical Therapy Visit Type Type Initial Evaluation Visit Start Time 10:35 Visit Stop Time 11:35 Total Visit Minutes 60 Number of AGENT BASED MODELER Visits 0 Physical Therapy Visit Comments Patient Comments pt agreed to do PT Therapy Pain Assessment Pain When Pain Assessed At Rest Pain Present Pain Present Pain Reported Location Left Hip Intensity 5 Scale Used increases to 10/10 with mobility Pain Behaviors Facial Grimacing,Guarding, Holding Area,Restlessness, Wincing Pain Management Techniques Apply Cold,Distraction, Modification of Treatment,Re- positioning,Timing of Activity with Medications M4 PT-IP Mobility and Gait Start: 07/04/21 12:26 Freq: NEEDED Status: Active Protocol: Document 07/04/21 10:35 AB (Rec: 07/04/21 12:43 AB [email or web address]) PT-Bed Mobility Assessment Supine to Sit Supine to Sit Maximum Assistance,2 Person Assistance,Head of Bed Elevated,Bedrails Sit to Supine Sit to Supine Total Assistance,2 Person Assistance Scooting Scooting to Edge of Bed Dependent Scooting Up and Down in Bed Dependent PT-Transfer Assessment Comments Mobility Comments pt stated that she had not had pain meds. nurse provided pt with IV dilaudid. son in room and stated that pt does not want taking narcotics but will take pain meds when she will have PT. informed pt and son regarding controlling pain better as pt will not only move with PT but has to be able to move with nurses for transfers and toileting needs and how pain will influence recovery. BP in supine: 131/86. pt completed supine to sit max A x 2 and max cues. max A for sitting on EOB. c/o increase pain on L hip with movement. c/o nausea. attempted to get BP reading x 2 but unable to obtain. pt requesting to lay back in bed. required total A x 2for sit to supine. total A for positioning in bed. pt with increase LLE guarding during movement requiring increase assistance with LE proper positioning. call light and table placed within reach. BP supine at end of tx session: 104/72. left pt with nurse and PA. Gait Assessment Comments Gait Comments unable at this time PT-Balance Assessment Sitting Balance and Reactions Static Sitting Balance Ability Poor Dynamic Sitting Balance Ability Poor Standing Balance and Reactions Device Used n/t M5 PT-IP Objective Assessments Start: 07/04/21 12:26 Freq: NEEDED Status: Active Protocol: Document 07/04/21 10:35 AB (Rec: 07/04/21 12:43 AB [email or web address]) Orientation Orientation/Cognition Level of Alertness Confusional State Orientation Name,Place,Situation Safety Awareness Decreased Safety Awareness Gross Range of Motion Lower Extremity ROM Assessment Left Impaired Impairments LLE increase muscle guarding with PROM with increase rigidity/stiffness and resistance with movement Strength Lower Extremity Strength Assessment Left Impaired Hip 2+/5 Knee 2+/5 M6 PT-IP Treatment Start: 07/04/21 12:26 Freq: NEEDED Status: Active Protocol: Document 07/04/21 10:35 AB (Rec: 07/04/21 12:43 AB [email or web address]) Physical Therapy Treatment Education Education Provided Precautions,Weight Bearing Status,Post-Op Packet,Safety M7 PT-IP Assessment and Plan Start: 07/04/21 12:26 Freq: NEEDED Status: Active Protocol: Document 07/04/21 10:35 AB (Rec: 07/04/21 12:43 AB [email or web address]) PT Summary Assessment and Plan Potential Rehabilitation Potential Fair Status of Condition at Evaluation Evolving Summary Impairments Pain,ROM,Strength,Balance, Coordination,Sensation,Tone, Cognition,Bed Mobility, Transfers,Gait,Activity Tolerance Assessment Summary pt requiring max A x 2 to total A x 2 with mobility and unable to ambulate at this time. pt will require SNF rehab to improve overall strength and mobility independence. will continue to assess progress. Goals Bed Mobility Goal Minimal Assistance Transfer Goal Minimal Assistance,Front Wheeled Walker Gait Goal Minimal Assistance,Front Wheel Walker Gait Distance 100 Other Goals improve bed mobiltiy and transfers to SBA using FWW improve ambulation CGA 150 ft SBA up/down 3 steps 1 rail min A Days to Meet Goals 5 Frequency of Treatment Frequency Of Treatment Twice a Day Treatment Plan Physical Therapy Treatment Plan Bed Mobility Training,Transfer Training,Gait Training, Therapeutic Exercise,Balance Retraining,Post Op Education, Discharge Planning,Hot or Cold Pack,Neuromuscular Re-ed, Coordination Retraining,Manual Therapy Other Recommendations and Next Treatment transfers, ambulation Focus Precautions Other Precautions Falls Weight Bearing Status Weight Bearing Status Weight Bear as Tolerated Allowed Weight Bearing Amount (enter % LLE WBAT or #) (%) Recommendations To Nursing Amount of Assist Needed Mechanical Lift Discharge Recommendations PT Discharge Recommendations SNF Rehab Transportation Needs at Discharge Wheelchair/Cabulance,Stretcher /Ambulance
[2021-07-04] MEDS: HYDROMORPHONE 0.5 MG INJ 0.2 MG IV (10:48)
--- NOTE | 2021-07-04 11:50 | P.PN_ITS ---
Subjective Subjective Date Patient Seen: 07/04/21 Time Patient Seen: 11:50 Interval history: The patient is complaining of moderate to severe left leg pain. I spoke with her son and the patient refused to take any narcotic pain medications from the time of the accident until this afternoon. She was given IV Dilaudid. She notes she has anaphylaxis relax reaction to Vicodin. She has tolerated Dilaudid well. She is trying to work with physical therapy but is v nadira nauseous. She denies any new numbness or tingling. No fevers chills night sweats. Exam Vital Signs (past 8 hours): - 07/04/21 04:50 07/04/21 08:00 Temperature 97.0 F L 96.3 F L Pulse Rate 94 H 82 Respiratory Rate 16 18 Blood Pressure 99/52 L 107/55 L Pulse Oximetry 98 97 Oxygen Delivery Method Nasal Cannula Oxygen Flow Rate 3 Narrative Exam Narrative: 80-year-old female, resting in bed, mild discomfort and nausea. Bilateral lower extremity motor functions are grossly intact. She is grossly intact to light touch in bilateral lower extremities. Bilateral calves are soft, nontender to palpation. Incisions are clean, dry, intact. Objective Labs Result Diagrams: 07/04/21 05:15 07/04/21 05:15 Labs: Laboratory Results - last 24 hr 07/03/21 07/03/21 07/03/21 14:22 14:22 14:22 WBC 9.3 RBC 4.89 Hgb 13.6 Hct 42.5 MCV 86.9 MCH 27.8 MCHC 32.0 RDW 15.0 H Plt Count 289 Neut % (Auto) 63.2 Lymph % (Auto) 23.3 L [place] % (Auto) 10.0 Eos % (Auto) 2.6 Baso % (Auto) 0.9 Neut # (Auto) 5900 Lymph # (Auto) 2200 [place] # (Auto) 900 Eos # (Auto) 200 Baso # (Auto) 100 PT 10.8 INR 1.0 APTT 37 H Sodium 136 L Potassium 4.0 Chloride 103 Carbon Dioxide 23 BUN 30 H Creatinine 1.07 H Estimated GFR 49.5 L BUN/Creatinine Ratio 28.0 H Glucose 130 H Calcium 10.9 H SARS-CoV-2 (PCR) Blood Type Antibody Screen Antibody Identification 07/03/21 07/03/21 07/04/21 14:50 14:55 05:15 WBC 12.9 H RBC 3.88 L Hgb 10.7 L Hct 33.8 L MCV 87.0 MCH 27.6 MCHC 31.7 RDW 15.0 H Plt Count 227 Neut % (Auto) 91.6 H D Lymph % (Auto) 4.8 L [place] % (Auto) 3.6 Eos % (Auto) 0.0 L Baso % (Auto) 0.0 Neut # (Auto) 35853 H Lymph # (Auto) 600 L [place] # (Auto) 500 Eos # (Auto) 0 Baso # (Auto) 0 PT INR APTT Sodium Potassium Chloride Carbon Dioxide BUN Creatinine Estimated GFR BUN/Creatinine Ratio Glucose Calcium SARS-CoV-2 (PCR) Negative Blood Type A Positive Antibody Screen Positive Antibody Identification Anti-E 07/04/21 05:15 WBC RBC Hgb Hct MCV MCH MCHC RDW Plt Count Neut % (Auto) Lymph % (Auto) [place] % (Auto) Eos % (Auto) Baso % (Auto) Neut # (Auto) Lymph # (Auto) [place] # (Auto) Eos # (Auto) Baso # (Auto) PT INR APTT Sodium 134 L Potassium 4.5 Chloride 102 Carbon Dioxide 22 BUN 29 H Creatinine 0.98 Estimated GFR 54.7 L BUN/Creatinine Ratio 29.6 H Glucose 160 H Calcium 9.6 SARS-CoV-2 (PCR) Blood Type Antibody Screen Antibody Identification [facility] Medical History Elevated blood pressure reading Hypothyroid Social History household members: significant other Smoking Status: Former smoker alcohol intake: former Assessment & Plan Post-op Postoperative Procedures: Procedures Operation Date: 07/03/21 18:30 Actual Procedure Side Surgeon p IM Nail Left Hip Left Viji Rangel MD Postoperative day: 1 Postoperative status: marginal pain control Postoperative status narrative: Stable status post left hip intramedullary nailing Postoperative plan narrative: -Weight-bearing as tolerated with front wheeled walker. -tramadol 50-100 mg q.4 hours in addition to Tylenol plus ibuprofen for pain management. -Lovenox 40 mg daily times 28 days for DVT prophylaxis -likely dc home in 1-2 days. The patient is planning on going home and notes she has a ladle builder available for her. Quality VTE Deep Vein Thrombosis/Pulmonary Embolism Present on Admission: No
[2021-07-04 12:00] VITALS: BP 107/42; PULSE 77; RESP 16; TEMP 35.9; O2SAT 92
[2021-07-04] MEDS: TRAMADOL 50 MG TABLET PO ×2 (12:44→19:06)
--- NOTE | 2021-07-04 13:25 | PT.IPTN ---
Current Diagnoses Displaced intertrochanteric fracture of left femur, initial encounter for closed fracture (07/04/21) Surgery Performed Operation Date: 07/03/21 18:30 Actual Procedures p IM Nail Left Hip(Left) - Viji Rangel MD Physical Therapy Treatment Note M2 PT-IP Current Condition Start: 07/04/21 12:26 Freq: NEEDED Status: Active Protocol: Document 07/04/21 10:35 AB (Rec: 07/04/21 12:43 AB [email or web address]) Physical Therapy Current Condition Current Condition Evaluation Date 07/04/21 Treatment Diagnosis L intertrochanteric hip fx s/p nailing; difficulty in walking Onset Date 07/03/21 M3 PT-IP Subjective Start: 07/04/21 12:26 Freq: NEEDED Status: Active Protocol: Document 07/04/21 13:25 AB (Rec: 07/04/21 15:51 AB [email or web address]) Subjective Physical Therapy Visit Type Type Treatment Note Visit Start Time 13:25 Visit Stop Time 14:20 Total Visit Minutes 55 Number of CELL ROOM OPERATOR Visits 0 Physical Therapy Visit Comments Patient Comments agreeable to do PT Therapy Pain Assessment Pain When Pain Assessed At Rest Pain Present Pain Present Pain Reported Location Left Hip Intensity 5 Scale Used increases with mobility Pain Behaviors Calling Out,Facial Grimacing, Guarding,Holding Area,Wincing Pain Management Techniques Apply Cold,Distraction, Modification of Treatment,Re- positioning,Timing of Activity with Medications M4 PT-IP Mobility and Gait Start: 07/04/21 12:26 Freq: NEEDED Status: Active Protocol: Document 07/04/21 13:25 AB (Rec: 07/04/21 15:51 AB [email or web address]) PT-Bed Mobility Assessment Supine to Sit Supine to Sit Maximum Assistance,1 Person Assistance,Head of Bed Elevated,Bedrails Sit to Supine Sit to Supine Maximum Assistance,2 Person Assistance,Bedrails Scooting Scooting to Edge of Bed Maximum Assistance Scooting Up and Down in Bed Maximum Assistance PT-Transfer Assessment Sit to and From Stand Sit to and from Stand Maximum Assistance,2 Person Assistance,Use of Upper Extremities Equipment Transfer Assistive Device Front Wheeled Walker Orthotic/Prosthetic Devices or Brace: No Comments Mobility Comments BP in supine: 93/59. pt completed heels slides in supine AAROM on BLE and ankle pumps. completed supine to sit max A and max cues. pt was able to sit on EOB max A. c/o nausea. BP: 92/64. nurse in room. provided pt with anti nausea medication. BP checked again: 101/58. pt tolerated a few more minutes of sitting on EOB ~ 3 min. BP checked: 103/56. continues to c/o nausea. completed sit to stand max A x 2 and max cues but only tolerate a ~ 3 sec of standing. pt sat back down. completed side scooting towards [place] max A. completed sit to supine max A x 2 and max cues. positioned pt in bed. pt prefers to sidelie on R. positioned pt but informed pt to ask the nurse to change her position later for skin integrity and due to LLE tends to IR and adduct in sidelying. pt with increase LLE guarding affecting pain and positioning. pt agreed. BP at end of tx session: 95/51 . Gait Assessment Comments Gait Comments unable at this time M5 PT-IP Objective Assessments Start: 07/04/21 12:26 Freq: NEEDED Status: Active Protocol: Document 07/04/21 10:35 AB (Rec: 07/04/21 12:43 AB [email or web address]) Orientation Orientation/Cognition Level of Alertness Confusional State Orientation Name,Place,Situation Safety Awareness Decreased Safety Awareness Gross Range of Motion Lower Extremity ROM Assessment Left Impaired Impairments LLE increase muscle guarding with PROM with increase rigidity/stiffness and resistance with movement Strength Lower Extremity Strength Assessment Left Impaired Hip 2+/5 Knee 2+/5 M6 PT-IP Treatment Start: 07/04/21 12:26 Freq: NEEDED Status: Active Protocol: Document 07/04/21 13:25 AB (Rec: 07/04/21 15:51 AB [email or web address]) Physical Therapy Treatment Exercises Exercises Ankle Pumps,Heel Slides Education Education Provided Safety M7 PT-IP Assessment and Plan Start: 07/04/21 12:26 Freq: NEEDED Status: Active Protocol: Document 07/04/21 13:25 AB (Rec: 07/04/21 15:51 AB [email or web address]) PT Summary Assessment and Plan Potential Rehabilitation Potential Fair Summary Impairments Pain,ROM,Strength,Balance, Coordination,Sensation,Tone, Cognition,Bed Mobility, Transfers,Gait,Activity Tolerance Progress Towards Goals Slow Progress due to Pain,Slow Progress due to Activity Tolerance Assessment Summary pt requiring max A x 2 for sit to stand and unable to ambulate at this time. pt unable to tolerate much activity with c/o nausea and increase pain with increase LLE stiffness/tightness resistive of movement affecting progress and mobility. Pt will need SNF rehab at this time. informed pt but pt does not want to go to SNF. informed pt regarding goals for safe d/c. will conduct caregiver training when appropriate. pt also has steps to enter the house and needs to be able to complete steps for safe d/c. will continue to assess progress. Goals Bed Mobility Goal Minimal Assistance Transfer Goal Minimal Assistance,Front Wheeled Walker Gait Goal Minimal Assistance,Front Wheel Walker Gait Distance 100 Other Goals improve bed mobiltiy and transfers to SBA using FWW improve ambulation CGA 150 ft SBA up/down 3 steps 1 rail min A Days to Meet Goals 5 Frequency of Treatment Frequency Of Treatment Twice a Day Treatment Plan Physical Therapy Treatment Plan Bed Mobility Training,Transfer Training,Gait Training, Therapeutic Exercise,Balance Retraining,Post Op Education, Discharge Planning,Hot or Cold Pack,Neuromuscular Re-ed, Coordination Retraining,Manual Therapy Other Recommendations and Next Treatment transfers, ambulation Focus Precautions Other Precautions Falls Weight Bearing Status Weight Bearing Status Weight Bear as Tolerated Recommendations To Nursing Amount of Assist Needed Mechanical Lift Discharge Recommendations PT Discharge Recommendations SNF Rehab Transportation Needs at Discharge Wheelchair/Cabulance,Stretcher /Ambulance
--- NOTE | 2021-07-04 14:10 | CM.IDA ---
Initial DCP Assessment Note Pt is a 80 yo female, resident of [place], presented 07.03.21 after GLF and subsequent fracture, now POD#1 from left hip repair by Dr Rangel PCP: Phil Rodriguez Payer: [employer] Reviewed chart, According to RN- patient had been refusing narcotics d/t a prior allergic reaction to Vicodin. Patient now agreeable to alternative pain management meds. PT currently recommending SNF met w/patient this afternoon, introduced role. Patient explains she is active and indp at her baseline. Her son Dylan is her DPOA; patient has 5 sons total. Patient plans to return home w/[facility] and asks for PT Julia. Patient explains she was reunited with her ex spouse Syed approx one year ago, after his , and patient plans to return to her home w/Syed to assist 13/04. Patient and Syed have separate homes and visit each other every other week. Reviewed PT notes upon writing this note; will need to discuss therapy recommendation w/patient tomorrow if she has not progressed towards goal of DC home w/ ex spouse CARLA Bland Discharge Planning/Care Management CM Discharge Assessment Start: 07/04/21 14:02 Freq: Status: Active Protocol: Document 07/04/21 14:02 MARY (Rec: 07/04/21 14:10 MARY [id number]) Discharge Planning Assessment Assigned Senior Technical Writer CARLA Magaña DPSUZIE/Assigned Designee Name destin Roach/DPOA Contact Information [phone] Advance Directives? Yes Advance Directives on File No History Provided By Patient Prior Living Arrangements House Household Members significant other Comment See Narrative Type of transporation used prior to Drives own vehicle admit Independent with ADL's Yes Is patient alert and oriented? Yes Barriers to Discharge Yes Comment PT: SNF. Patient wants to return home w/ HH Whiteboard Updated in Patient Room with Yes name and ext. # of Senior Technical Writer
[2021-07-04] MEDS: OXYCODONE IR 5 MG TABLET PO (15:30)
[2021-07-04 16:00] VITALS: BP 96/51; PULSE 74; RESP 17; TEMP 36.1; O2SAT 91
--- NOTE | 2021-07-04 18:34 | PC.NURSE ---
Addendum entered by Marielos Desouza R.N. 07/04/21 22:34: Pt remains vigilent and proactive with I.S. use. Taking oral fluids well. Attempts at solid foods, but little interest. Medicated for pain as per emar. Moves self independently in bed as per pt, was instructed by P.TDarryl earlier today. Ice to hip and back as needed/requested. BL calf scd's in place. Able to make needs and wants known to staff. Not out of bed this shift. Original Note: Pt awake, alert resting quietly in bed on right side. Oxygen in place @ 2L/min. I.S. provided and teaching done in an effort to wean pt off oxygen which pt states does not wear at home. Room air 95%. Pt compliant with I.S. use and able to use to 1200. Dr. Rodriguez in to see patient. Oral fluids encouraged and provided. Pt attempting to eat evening meal. Does deny nausea. No flatus and bowel tones are rare. Meyer to gravity with small amount clear, yellow urine. Rates left hip pain @ rest 4/10. Ice provided to left hip and to back as pt reports chronic lower back pain. Dressings x 2 intact to left hip. Small areas of purple bruising surround dressing. Pt positions self onto back for evening meal while in bed.
[2021-07-04 19:29] VITALS: PULSE 48; RESP 18; O2SAT 96
[2021-07-04 20:23] VITALS: BP 95/52; PULSE 67; RESP 16; TEMP 36.1; O2SAT 93
[2021-07-04] MEDS: ATORVASTATIN 20 MG TABLET PO (20:35)
[2021-07-04] MEDS: SODIUM CHLORIDE 0.9% FLUSH 10 ML IV (20:38)
[2021-07-05] VITALS (8 sets, daily range): BP systolic 90–112; BP diastolic 50–69; PULSE 66–98; RESP 16–17; TEMP 35.5–36.7; O2SAT 91–98
[2021-07-05] MEDS: OXYCODONE IR 5 MG TABLET PO ×3 (00:01→12:58)
[2021-07-05] MEDS: ONDANSETRON 4 MG/2 ML INJ IV ×3 (00:13→09:39)
[2021-07-05] MEDS: TRAMADOL 50 MG TABLET PO ×3 (03:31→20:16)
[2021-07-05] MEDS: IBUPROFEN 400 MG TABLET PO ×3 (03:31→14:56)
[2021-07-05] MEDS: LEVOTHYROXINE 88 MCG TABLET PO (06:19)
[2021-07-05] MEDS: PANTOPRAZOLE DR 20 MG TABLET PO (06:20)
[2021-07-05 08:40] LABS: Add Manual Diff / Slide Review NO; Basophils Absolute Auto 0 /uL (0-100); Basophils Percent Auto 0.3 % (0-2); Eosinophils Absolute Auto 100 /uL (0-450); Eosinophils Percent Auto 0.8 % (2-4); Hematocrit 27.9 % (36-46); Lymphocytes Absolute Auto 1600 /uL (1100-4500); Mean Corpuscular HGB Conc 32.2 % (30-36); Mean Corpuscular Hemoglobin 27.9 PG (26-34); Mean Corpuscular Volume 86.6 fL (80-100); Monocytes Absolute Auto 1300 /uL (0-900); Monocytes Percent Auto 11.6 % (3-14); Neutrophils Absolute Auto 8300 /uL (1500-7000); Neutrophils Percent Auto 73.3 % (50-75); Platelet Count 204 X10^3/uL (150-400); Red Blood Cell Count 3.22 X10^6/uL (4.0-5.2); Red Cell Distribution Width 15.1 % (11.6-14.8); White Blood Cell Count 11.4 X10^3/uL (4.5-11.0)
[2021-07-05 08:50] LABS: BUN Creatinine Ratio 23.4 (6-22); Blood Urea Nitrogen 32 mg/dL (7-17); Calcium 9.6 mg/dL (8.4-10.2); Carbon Dioxide 24 mmol/L (22-32); Chloride 99 mmol/L (98-107); Estimated Glomerular Filt Rate 37.2 mL/min (>60); Glucose 96 mg/dL (80-110); HEMOLYSIS < 15 (0-50); Potassium 4.3 mmol/L (3.4-5.1); Sodium 130 mmol/L (137-145)
--- NOTE | 2021-07-05 09:05 | P.PN_ITS ---
Subjective Subjective Date Patient Seen: 07/05/21 Time Patient Seen: 09:05 Interval history: CC: i feel awful did get up once tih PT yesterday who are recommending rehab/SNF discussion with family ongoing regarding dc goals today are transfer to commode and get Meyer out Exam Vital Signs (past 8 hours): - 07/05/21 05:00 Temperature 97.4 F L Pulse Rate 67 Respiratory Rate 16 Blood Pressure 100/50 L Pulse Oximetry 93 Oxygen Delivery Method Room Air Oxygen Flow Rate 0 Narrative Exam Narrative: joyce elder in bed with son at bedside complaining about the food laying on back Const General: cooperative and comfortable Resp Effort & Inspection: normal respiratory effort and able to speak in complete sentences Auscultation: clear to auscultation bilaterally Cardio Rate: regular rate Rhythm: regular rhythm GI Inspection: normal to inspection Palpation: soft and No tender Auscultation: normal bowel sounds Neuro General: patient alert, patient awake, patient oriented x3 and moves all extremities Extrem Other: LLE with orthopedic incisions under clean dry dressingno erythema or exudate Psych Appearance: grossly normal Mental Status: mental status grossly normal Objective Labs Result Diagrams: 07/05/21 08:22 07/05/21 08:22 Labs: Laboratory Results - last 24 hr 07/05/21 07/05/21 08:22 08:22 WBC 11.4 H RBC 3.22 L Hgb 9.0 L Hct 27.9 L MCV 86.6 MCH 27.9 MCHC 32.2 RDW 15.1 H Plt Count 204 Neut % (Auto) 73.3 Lymph % (Auto) 14.0 L [place] % (Auto) 11.6 Eos % (Auto) 0.8 L Baso % (Auto) 0.3 Neut # (Auto) 8300 H Lymph # (Auto) 1600 [place] # (Auto) 1300 H Eos # (Auto) 100 Baso # (Auto) 0 Sodium 130 L Potassium 4.3 Chloride 99 Carbon Dioxide 24 BUN 32 H Creatinine 1.37 H Estimated GFR 37.2 L BUN/Creatinine Ratio 23.4 H Glucose 96 Calcium 9.6 PFSH Medical History Elevated blood pressure reading Hypothyroid Social History household members: significant other Smoking Status: Former smoker alcohol intake: former Assessment & Plan Assessment & Plan narrative: #acute intertrochanteric L hip fracture #s/p fall from stool above ground level s/p repair by ortho she is full weight bearing on that extremity NPO ordered with prn pain meds and NS via IVF, doing better today with some oxy however still having trouble with transfers not suitable for home d/c yet PT/RT consulted #hypothyroid stable continue home levothyroxine 88mcg #hyperlipidemia stable continue home atorvastatin 20 #hypertension mild stable continue home propranolol 40 #migraines very rare issue continue prn imitrex #hx of gout takes allopurinol at home 100 #neuropathy ok to continue home pregabalin Dispo: Likely to SNF on Thursday Diet: ADAT to regular DVT ppx: SCDs, lovenox Code status: Full code MDM: destin Richardson [phone] PCP: Jennifer Time Spent With Patient Critical Care time: I spent a total of [] minutes of critical care time on this patient's care today; this time is exclusive of procedural time. Quality VTE Deep Vein Thrombosis/Pulmonary Embolism Present on Admission: No
[2021-07-05] MEDS: ACETAMINOPHEN 325 MG TABLET 975 MG PO ×3 (09:08→20:17)
[2021-07-05] MEDS: DOCUSATE 100 MG CAPSULE PO ×2 (09:09→20:18)
[2021-07-05] MEDS: SODIUM CHLORIDE 0.9% FLUSH 10 ML IV ×2 (09:10→20:25)
[2021-07-05] MEDS: ENOXAPARIN 40 MG/0.4 ML SYRINGE SUBCUT (09:10)
--- NOTE | 2021-07-05 09:23 | PM.PNPO.1 ---
Subjective Subjective Date Patient Seen: 07/05/21 Time Patient Seen: 09:23 Interval history: Patient's pain is moderate to severe depend on if she is anterior active. She is feeling nauseous. No vomiting. Denies fever or chills. Exam Vital Signs (past 8 hours): - 07/05/21 05:00 Temperature 97.4 F L Pulse Rate 67 Respiratory Rate 16 Blood Pressure 100/50 L Pulse Oximetry 93 Oxygen Delivery Method Room Air Oxygen Flow Rate 0 Narrative Exam Narrative: 80-year-old female resting comfortably in bed in no apparent distress. Dressing is Clean, dry, intact.. Motor functions intact bilateral lower extremities. Sensation grossly intact to light touch bilateral lower extremities. Both legs are warm and dry. Objective Labs Result Diagrams: 07/05/21 08:22 07/05/21 08:22 Labs: Laboratory Results - last 24 hr 07/05/21 07/05/21 08:22 08:22 WBC 11.4 H RBC 3.22 L Hgb 9.0 L Hct 27.9 L MCV 86.6 MCH 27.9 MCHC 32.2 RDW 15.1 H Plt Count 204 Neut % (Auto) 73.3 Lymph % (Auto) 14.0 L [place] % (Auto) 11.6 Eos % (Auto) 0.8 L Baso % (Auto) 0.3 Neut # (Auto) 8300 H Lymph # (Auto) 1600 [place] # (Auto) 1300 H Eos # (Auto) 100 Baso # (Auto) 0 Sodium 130 L Potassium 4.3 Chloride 99 Carbon Dioxide 24 BUN 32 H Creatinine 1.37 H Estimated GFR 37.2 L BUN/Creatinine Ratio 23.4 H Glucose 96 Calcium 9.6 PFSH Medical History Elevated blood pressure reading Hypothyroid Social History household members: significant other Smoking Status: Former smoker alcohol intake: former Assessment & Plan Post-op Postoperative Procedures: Procedures Operation Date: 07/03/21 18:30 Actual Procedure Side Surgeon p IM Nail Left Hip Left Viji Rangel MD Postoperative day: 2 Postoperative status narrative: Stable Postoperative plan narrative: weightbearing as tolerated the left lower extremity. DVT prophylaxis she will use SCDs on the floor and Lovenox 40 mg subcutaneous daily starting postop day 1. She will be discharged with 4 weeks of Lovenox for a total of 28 days. [facility] for repeat x-rays and staple removal. Physical therapy is currently recommending care home facility placement secondary to mobility. She will mobilize with physical therapy today. Disposition home versus care home facility tomorrow Quality VTE Deep Vein Thrombosis/Pulmonary Embolism Present on Admission: No
[2021-07-05] MEDS: HYDROMORPHONE 0.5 MG INJ 0.2 MG IV (09:41)
--- NOTE | 2021-07-05 10:18 | PT.IPTN ---
Current Diagnoses Displaced intertrochanteric fracture of left femur, initial encounter for closed fracture (07/04/21) Surgery Performed Operation Date: 07/03/21 18:30 Actual Procedures p IM Nail Left Hip(Left) - Viji Rangel MD Physical Therapy Treatment Note M2 PT-IP Current Condition Start: 07/04/21 12:26 Freq: NEEDED Status: Active Protocol: Document 07/04/21 10:35 AB (Rec: 07/04/21 12:43 AB [id number]) Physical Therapy Current Condition Current Condition Evaluation Date 07/04/21 Treatment Diagnosis L intertrochanteric hip fx s/p nailing; difficulty in walking Onset Date 07/03/21 M3 PT-IP Subjective Start: 07/04/21 12:26 Freq: NEEDED Status: Active Protocol: Document 07/05/21 09:34 CLB (Rec: 07/05/21 11:52 CLB [id number]) Subjective Physical Therapy Visit Type Type Treatment Note Visit Start Time 09:34 Visit Stop Time 10:18 Total Visit Minutes 52 Notes MACHINE ASSISTANT present for second person safety. Number of OBSTETRICIAN GYNECOLOGIST Visits 1 Physical Therapy Visit Comments Patient Comments agreeable to do PT Therapy Pain Assessment Pain When Pain Assessed At Rest Pain Present Pain Present Pain Reported Location Left Hip Scale Used unable to state Pain Behaviors Calling Out,Facial Grimacing, Guarding,Holding Area,Wincing Pain Management Techniques Distraction,Modification of Treatment,Re-positioning, Timing of Activity with Medications M4 PT-IP Mobility and Gait Start: 07/04/21 12:26 Freq: NEEDED Status: Active Protocol: Document 07/05/21 09:34 CLB (Rec: 07/05/21 11:52 CLB [id number]) PT-Bed Mobility Assessment Supine to Sit Supine to Sit Maximum Assistance,1 Person Assistance,Head of Bed Elevated,Bedrails Sit to Supine Sit to Supine Maximum Assistance,2 Person Assistance,Bedrails Scooting Scooting to Edge of Bed Minimal Assistance PT-Transfer Assessment Sit to and From Stand Sit to and from Stand Maximum Assistance,2 Person Assistance,Use of Upper Extremities Equipment Transfer Assistive Device Gait Belt,Front Wheeled Walker Orthotic/Prosthetic Devices or Brace: No Comments Mobility Comments Pt required AAROM for HS in supine. BP in supine 111/71, HR 72. Pt required Max A to sit then pt able to scoot to EOB MIn A with use of UE and bed cane. Pt BP in sitting 108 /78, HR 84. Pt with increased nausea with emesis. Pt stood Max A x2 and was able to stand for ~40 seconds before pt needed to sit due to nausea with emesis. Pt was returned to supine Max A x2 due to increased nausea and transfer unsuccessful. Pt BP with HOB elevated at 28 degrees 131/66, HR 74. Pt left in bed with all needs within reach and bed alarm on. Informed RN of BP readings. Gait Assessment Comments Gait Comments unable at this time M5 PT-IP Objective Assessments Start: 07/04/21 12:26 Freq: NEEDED Status: Active Protocol: Document 07/04/21 10:35 AB (Rec: 07/04/21 12:43 AB [id number]) Orientation Orientation/Cognition Level of Alertness Confusional State Orientation Name,Place,Situation Safety Awareness Decreased Safety Awareness Gross Range of Motion Lower Extremity ROM Assessment Left Impaired Impairments LLE increase muscle guarding with PROM with increase rigidity/stiffness and resistance with movement Strength Lower Extremity Strength Assessment Left Impaired Hip 2+/5 Knee 2+/5 M6 PT-IP Treatment Start: 07/04/21 12:26 Freq: NEEDED Status: Active Protocol: Document 07/05/21 09:34 CLB (Rec: 07/05/21 11:52 CLB [id number]) Physical Therapy Treatment Exercises Exercises Ankle Pumps,Gluteal Sets Education Education Provided Safety M7 PT-IP Assessment and Plan Start: 07/04/21 12:26 Freq: NEEDED Status: Active Protocol: Document 07/05/21 09:34 CLB (Rec: 07/05/21 11:52 CLB [id number]) PT Summary Assessment and Plan Potential Rehabilitation Potential Fair Summary Impairments Pain,ROM,Strength,Balance, Coordination,Sensation,Tone, Cognition,Bed Mobility, Transfers,Gait,Activity Tolerance Progress Towards Goals Slow Progress due to Pain,Slow Progress due to Medical Issues,Slow Progress due to Activity Tolerance Assessment Summary Pt requiring Max A for bed mobility and Max A x2 for sit- stand, pt with increased nausea with emesis x2 during tx and was unable to transfer to chair. Pt states she wants to return home with assist from her SO Syed and states her son can also help but pt is requiring Max A 1-2 person and SNF rehab is recommended to increase activity tolerance for functional mobility. Goals Bed Mobility Goal Minimal Assistance Transfer Goal Minimal Assistance,Front Wheeled Walker Gait Goal Minimal Assistance,Front Wheel Walker Gait Distance 100 Other Goals improve bed mobiltiy and transfers to SBA using FWW improve ambulation CGA 150 ft SBA up/down 3 steps 1 rail min A Days to Meet Goals 5 Frequency of Treatment Frequency Of Treatment Twice a Day Treatment Plan Physical Therapy Treatment Plan Bed Mobility Training,Transfer Training,Gait Training, Therapeutic Exercise,Balance Retraining,Post Op Education, Discharge Planning,Hot or Cold Pack,Neuromuscular Re-ed, Coordination Retraining,Manual Therapy Other Recommendations and Next Treatment transfers, ambulation Focus Precautions Other Precautions Falls Weight Bearing Status Weight Bearing Status Weight Bear as Tolerated Allowed Weight Bearing Amount (enter % LLE WBAT or #) (%) Recommendations To Nursing Amount of Assist Needed Mechanical Lift Discharge Recommendations PT Discharge Recommendations SNF Rehab Transportation Needs at Discharge Wheelchair/Cabulance,Stretcher /Ambulance
--- NOTE | 2021-07-05 13:44 | PT.IPTN ---
Current Diagnoses Displaced intertrochanteric fracture of left femur, initial encounter for closed fracture (07/04/21) Surgery Performed Operation Date: 07/03/21 18:30 Actual Procedures p IM Nail Left Hip(Left) - Viji Rangel MD Physical Therapy Treatment Note M2 PT-IP Current Condition Start: 07/04/21 12:26 Freq: NEEDED Status: Active Protocol: Document 07/04/21 10:35 AB (Rec: 07/04/21 12:43 AB [id number]) Physical Therapy Current Condition Current Condition Evaluation Date 07/04/21 Treatment Diagnosis L intertrochanteric hip fx s/p nailing; difficulty in walking Onset Date 07/03/21 M3 PT-IP Subjective Start: 07/04/21 12:26 Freq: NEEDED Status: Active Protocol: Document 07/05/21 13:22 CLB (Rec: 07/05/21 14:02 CLB [id number]) Subjective Physical Therapy Visit Type Type Treatment Note Visit Start Time 13:22 Visit Stop Time 13:46 Total Visit Minutes 24 Notes CLUB ATTENDANT present to assist for safety. Number of INSPECTION MANAGER Visits 2 Physical Therapy Visit Comments Patient Comments agreeable to do PT Therapy Pain Assessment Pain When Pain Assessed At Rest Pain Present Pain Present Pain Reported Location Left Hip Intensity 7 Scale Used Numeric (0 - 10) Pain Behaviors Calling Out,Facial Grimacing, Guarding,Holding Area,Wincing Pain Management Techniques Distraction,Modification of Treatment,Re-positioning, Timing of Activity with Medications M4 PT-IP Mobility and Gait Start: 07/04/21 12:26 Freq: NEEDED Status: Active Protocol: Document 07/05/21 13:22 CLB (Rec: 07/05/21 14:02 CLB [id number]) PT-Bed Mobility Assessment Supine to Sit Supine to Sit Maximum Assistance,1 Person Assistance,Head of Bed Elevated,Bedrails Sit to Supine Sit to Supine Maximum Assistance,2 Person Assistance,Bedrails Scooting Scooting to Edge of Bed Maximum Assistance PT-Transfer Assessment Sit to and From Stand Sit to and from Stand Maximum Assistance,2 Person Assistance,Use of Upper Extremities Equipment Transfer Assistive Device Gait Belt,Front Wheeled Walker Orthotic/Prosthetic Devices or Brace: No Comments Mobility Comments Pt stood with c/o nausea once standing. Pt shakey in standing and required to sit back down. Pt then able to stand and shift foot to move towards HOB. Pt required Max A x2 to get back into supine position. Pt left in bed with all needs within reach and bed alarm on. Gait Assessment Comments Gait Comments unable at this time M5 PT-IP Objective Assessments Start: 07/04/21 12:26 Freq: NEEDED Status: Active Protocol: Document 07/04/21 10:35 AB (Rec: 07/04/21 12:43 AB [id number]) Orientation Orientation/Cognition Level of Alertness Confusional State Orientation Name,Place,Situation Safety Awareness Decreased Safety Awareness Gross Range of Motion Lower Extremity ROM Assessment Left Impaired Impairments LLE increase muscle guarding with PROM with increase rigidity/stiffness and resistance with movement Strength Lower Extremity Strength Assessment Left Impaired Hip 2+/5 Knee 2+/5 M6 PT-IP Treatment Start: 07/04/21 12:26 Freq: NEEDED Status: Active Protocol: Document 07/05/21 09:34 CLB (Rec: 07/05/21 11:52 CLB [id number]) Physical Therapy Treatment Exercises Exercises Ankle Pumps,Gluteal Sets Education Education Provided Safety M7 PT-IP Assessment and Plan Start: 07/04/21 12:26 Freq: NEEDED Status: Active Protocol: Document 07/05/21 13:22 CLB (Rec: 07/05/21 14:02 CLB [id number]) PT Summary Assessment and Plan Potential Rehabilitation Potential Fair Summary Impairments Pain,ROM,Strength,Balance, Coordination,Sensation,Tone, Cognition,Bed Mobility, Transfers,Gait,Activity Tolerance Progress Towards Goals Slow Progress due to Pain,Slow Progress due to Medical Issues,Slow Progress due to Activity Tolerance Assessment Summary Pt continues to require Max A x2 and is unable to transfer to chair due to pain and nausea. Pt will require SNF rehab and pt verbalized understanding of the need to go to SNF rehab. CM informed and spoke to pt about SNF, pt asked NAHUM Archana to call her son to let him know. Goals Bed Mobility Goal Minimal Assistance Transfer Goal Minimal Assistance,Front Wheeled Walker Gait Goal Minimal Assistance,Front Wheel Walker Gait Distance 100 Other Goals improve bed mobiltiy and transfers to SBA using FWW improve ambulation CGA 150 ft SBA up/down 3 steps 1 rail min A Days to Meet Goals 5 Frequency of Treatment Frequency Of Treatment Twice a Day Treatment Plan Physical Therapy Treatment Plan Bed Mobility Training,Transfer Training,Gait Training, Therapeutic Exercise,Balance Retraining,Post Op Education, Discharge Planning,Hot or Cold Pack,Neuromuscular Re-ed, Coordination Retraining,Manual Therapy Other Recommendations and Next Treatment transfers, ambulation if able Focus Precautions Other Precautions Falls Weight Bearing Status Weight Bearing Status Weight Bear as Tolerated Allowed Weight Bearing Amount (enter % LLE WBAT or #) (%) Recommendations To Nursing Amount of Assist Needed Mechanical Lift Discharge Recommendations PT Discharge Recommendations SNF Rehab Transportation Needs at Discharge Wheelchair/Cabulance,Stretcher /Ambulance
--- NOTE | 2021-07-05 15:56 | CM.DPNOTE ---
DCP Update DC to [facility] SNF expected Thursday when patient can use her MCR benefit. Patient now agreeable to plan since therapy team continues to recommend SNF. Updated Dr Rodriguez. Dr Watts covering this weekend. CM team will follow closely in anticipation of DC to SNF Thursday. PASRR completed. MARY
--- NOTE | 2021-07-05 19:03 | PC.NURSE ---
Addendum entered by Mairelos Desouza R.N. 07/05/21 21:17: Pt continues to prefer right side lying position in bed. LLE supported with pillows to keep in neutral position. BL calf scd's replaced. Pt is easily tearful, frustrated at lack of progress. Pt was reassured and questions addressed as appropriate. Pt denies any further nausea. Given tramadol, tylenol and ibuprofen only this evening shift. Ice cream and oral fluids taken by pt. Original Note: Pt lying in bed on right side @ beginning of shift. Dr. Rodriguez in house and checked with daysnhft RN prior to shift change. Pt admits to nausea and demonstrates dry heave. Taking oral fluids sparingly. Refuses foods except saltines which pt ate prior to dry heaves. Pt states feels as though oxycodone is the culprit contributing to nausea. Discussion with pt to avoid this medication. Pt rates pain 7/10 to left hip with any movement. Ice applied to left hip and to pt's back for chronic back pain. Assisted by staff to reposition in bed keeping knee in neutral position and avoiding turning knee towards midline. Pillows to support. Break from scd's as per discussion with pt.
[2021-07-05] MEDS: ATORVASTATIN 20 MG TABLET PO (20:17)
[2021-07-06] VITALS: BP 99/52; PULSE 72; RESP 18; TEMP 36.1; O2SAT 96
[2021-07-06] MEDS: IBUPROFEN 400 MG TABLET PO ×2 (00:05→09:12)
[2021-07-06] MEDS: TRAMADOL 50 MG TABLET PO ×5 (01:52→21:01)
[2021-07-06 05:00] VITALS: BP 116/67; PULSE 85; RESP 18; TEMP 36.4; O2SAT 96
[2021-07-06] MEDS: ONDANSETRON 4 MG/2 ML INJ IV ×2 (05:00→10:11)
[2021-07-06] MEDS: LEVOTHYROXINE 88 MCG TABLET PO (06:45)
[2021-07-06] MEDS: PANTOPRAZOLE DR 20 MG TABLET PO (06:45)
[2021-07-06 08:26] VITALS: BP 114/59; PULSE 77; RESP 19; TEMP 35.6; O2SAT 93
[2021-07-06] MEDS: ENOXAPARIN 40 MG/0.4 ML SYRINGE SUBCUT (09:12)
[2021-07-06] MEDS: DOCUSATE 100 MG CAPSULE PO ×2 (09:13→20:13)
[2021-07-06] MEDS: ACETAMINOPHEN 325 MG TABLET 975 MG PO ×3 (09:13→20:12)
[2021-07-06] MEDS: SODIUM CHLORIDE 0.9% FLUSH 10 ML IV ×2 (09:14→20:56)
--- NOTE | 2021-07-06 10:32 | P.PN_ITS ---
Subjective Subjective Date Patient Seen: 07/06/21 Time Patient Seen: 10:32 Interval history: Patient's pain is moderate. She felt nauseous and vomited with physical therapy yesterday. Nausea is better this morning. Denies fever or chills. Exam Vital Signs (past 8 hours): - 07/06/21 05:00 07/06/21 08:26 Temperature 97.5 F L 96.1 F L Pulse Rate 85 77 Respiratory Rate 18 19 Blood Pressure 116/67 114/59 L Pulse Oximetry 96 93 Oxygen Delivery Method Room Air Oxygen Flow Rate 0 Narrative Exam Narrative: Pleasant 80-year-old female resting comfortably in bed in no apparent distress. Left hip dressing is Clean, dry, intact.. Motor functions intact bilateral lower extremities. Sensation grossly intact to light touch bilateral lower extremities. Both legs are warm and dry. Objective Labs Result Diagrams: 07/05/21 08:22 07/05/21 08:22 [facility] Medical History Elevated blood pressure reading Hypothyroid Social History household members: significant other Smoking Status: Former smoker alcohol intake: former Assessment & Plan Post-op Postoperative Procedures: Procedures Operation Date: 07/03/21 18:30 Actual Procedure Side Surgeon p IM Nail Left Hip Left Viji Rangel MD Postoperative day: 3 Postoperative status narrative: Postop day 3 status post intramedullary nailing left intertrochanteric hip fracture Postoperative plan narrative: Weight-bearing as tolerated left lower extremity Lovenox 40 mg subcutaneous daily times 28 days Follow-up scheduled [facility] in 2 weeks for repeat x-rays and staple removal Physical therapy is currently recommending senior care facility placement. Disposition to senior care facility when stable per hospitalist. Quality VTE Deep Vein Thrombosis/Pulmonary Embolism Present on Admission: No
--- NOTE | 2021-07-06 10:37 | PT.IPTN ---
Current Diagnoses Displaced intertrochanteric fracture of left femur, initial encounter for closed fracture (07/04/21) Surgery Performed Operation Date: 07/03/21 18:30 Actual Procedures p IM Nail Left Hip(Left) - Viji Rangel MD Physical Therapy Treatment Note M2 PT-IP Current Condition Start: 07/04/21 12:26 Freq: NEEDED Status: Active Protocol: Document 07/04/21 10:35 AB (Rec: 07/04/21 12:43 AB [email or web address]) Physical Therapy Current Condition Current Condition Evaluation Date 07/04/21 Treatment Diagnosis L intertrochanteric hip fx s/p nailing; difficulty in walking Onset Date 07/03/21 M3 PT-IP Subjective Start: 07/04/21 12:26 Freq: NEEDED Status: Active Protocol: Document 07/06/21 10:37 AB (Rec: 07/06/21 12:17 AB [email or web address]) Subjective Physical Therapy Visit Type Type Initial Evaluation Visit Start Time 10:37 Visit Stop Time 11:10 Total Visit Minutes 33 Number of DIRECTOR MULTIMEDIA Visits 0 Physical Therapy Visit Comments Patient Comments pt c/o increase pain on RLE but agreed to do PT Therapy Pain Assessment Pain When Pain Assessed At Rest Pain Present Pain Present Pain Reported Location Left Hip Intensity 5 M4 PT-IP Mobility and Gait Start: 07/04/21 12:26 Freq: NEEDED Status: Active Protocol: Document 07/06/21 10:37 AB (Rec: 07/06/21 12:17 AB [email or web address]) PT-Bed Mobility Assessment Supine to Sit Supine to Sit Maximum Assistance,Head of Bed Elevated,Bedrails Scooting Scooting to Edge of Bed Maximum Assistance PT-Transfer Assessment Sit to and From Stand Sit to and from Stand Maximum Assistance,2 Person Assistance,Use of Upper Extremities Equipment Transfer Assistive Device Gait Belt,Front Wheeled Walker Orthotic/Prosthetic Devices or Brace: No Transfers Transfer Destination Chair Transfer Technique Stand Step Pivot Transfer Ability Level of Assist Maximum Assistance,2 Person Assistance,Use of Upper Extremities Comments Mobility Comments Pt supine in bed and stated that she was nauseated this morning. BP chekced: 137/78. pt completed ankle pumps, heel slides in bed. completed supine to sit max A and max cues. pt c/o increase nausea. BP: 131/74. pt required max A for sitting balance and tends to have increase forward trunk leaning in sitting. Pt tolerated ~ 5 min of sitting on EOB. completed sit to stand max A x 2 and max cues and step transfer to chair using FWW max A x 2 and max cues. positioned pt on chair. call light and table placed within reach. Gait Assessment Comments Gait Comments unable at this time M5 PT-IP Objective Assessments Start: 07/04/21 12:26 Freq: NEEDED Status: Active Protocol: Document 07/04/21 10:35 AB (Rec: 07/04/21 12:43 AB [email or web address]) Orientation Orientation/Cognition Level of Alertness Confusional State Orientation Name,Place,Situation Safety Awareness Decreased Safety Awareness Gross Range of Motion Lower Extremity ROM Assessment Left Impaired Impairments LLE increase muscle guarding with PROM with increase rigidity/stiffness and resistance with movement Strength Lower Extremity Strength Assessment Left Impaired Hip 2+/5 Knee 2+/5 M6 PT-IP Treatment Start: 07/04/21 12:26 Freq: NEEDED Status: Active Protocol: Document 07/06/21 10:37 AB (Rec: 07/06/21 12:17 AB [email or web address]) Physical Therapy Treatment Exercises Exercises Ankle Pumps,Heel Slides Education Education Provided Safety M7 PT-IP Assessment and Plan Start: 07/04/21 12:26 Freq: NEEDED Status: Active Protocol: Document 07/06/21 10:37 AB (Rec: 07/06/21 12:17 AB [email or web address]) PT Summary Assessment and Plan Potential Rehabilitation Potential Fair Summary Impairments Pain,ROM,Strength,Balance, Coordination,Sensation,Tone, Cognition,Bed Mobility, Transfers,Gait,Activity Tolerance Progress Towards Goals Slow Progress due to Pain,Slow Progress due to Medical Issues,Slow Progress due to Activity Tolerance Assessment Summary pt requiring max A x 2 for sit to stand and transfers and continues to have decrease activity tolerance affecting mobility. pt will require SNF rehab to improve strength and mobility. Goals Bed Mobility Goal Minimal Assistance Transfer Goal Minimal Assistance,Front Wheeled Walker Gait Goal Minimal Assistance,Front Wheel Walker Gait Distance 100 Other Goals improve bed mobiltiy and transfers to SBA using FWW improve ambulation CGA 150 ft SBA up/down 3 steps 1 rail min A Days to Meet Goals 5 Frequency of Treatment Frequency Of Treatment Twice a Day Treatment Plan Physical Therapy Treatment Plan Bed Mobility Training,Transfer Training,Gait Training, Therapeutic Exercise,Balance Retraining,Post Op Education, Discharge Planning,Hot or Cold Pack,Neuromuscular Re-ed, Coordination Retraining,Manual Therapy Other Recommendations and Next Treatment transfers, ambulation Focus Precautions Other Precautions Falls Weight Bearing Status Weight Bearing Status Weight Bear as Tolerated Allowed Weight Bearing Amount (enter % LLE WBAT or #) (%) Recommendations To Nursing Amount of Assist Needed Mechanical Lift Discharge Recommendations PT Discharge Recommendations SNF Rehab Transportation Needs at Discharge Wheelchair/Cabulance,Stretcher /Ambulance
--- NOTE | 2021-07-06 10:44 | PM.PN.1 ---
Subjective Subjective Date Patient Seen: 07/06/21 Time Patient Seen: 09:40 Interval history: The pt this morning reports that she is overall doing okay. She is frustrated with her limited ability to get out of bed thus far. She has been very nauseous and vomiting with most movement. This is thought to be due to her narcotic pain medications, which have been discontinued now. She reports ongoing pain in her left hip. She has passed only a small amount of gas, but has not had a BM yet. Exam Vital Signs (past 8 hours): - 07/06/21 05:00 07/06/21 08:26 Temperature 97.5 F L 96.1 F L Pulse Rate 85 77 Respiratory Rate 18 19 Blood Pressure 116/67 114/59 L Pulse Oximetry 96 93 Oxygen Delivery Method Room Air Oxygen Flow Rate 0 Narrative Exam Narrative: Gen: NAD, laying in bed on right side, appears well CV: RRR, no murmurs Resp: clear to auscultation bilaterally Abd: soft, nontender, nondistended, normoactive bowel sounds Ext: no edema; left hip bandages c/d/i Objective Labs Result Diagrams: 07/05/21 08:22 07/05/21 08:22 [facility] Medical History Elevated blood pressure reading Hypothyroid Social History household members: significant other Smoking Status: Former smoker alcohol intake: former Assessment & Plan Assessment & Plan narrative: 1. Acute intertrochanteric L hip fracture POD #3 s/p intramedullary nailing - Ortho consulted, appreciate ongoing care - Full weight bearing as tolerated - PT/OT following - Hold narcotic pain medications due to significant nausea/vomiting. Continue Ibuprofen, Tylenol, Tramadol 2. Hypothyroidism: Stable - Continue home levothyroxine 88mcg 3. Hyperlipidemia: Stable - Continue home atorvastatin 20mg 4. Hypertension: Stable - Continue home propranolol 40mg 5. Migraines: Infrequent - Continue PRN Imitrex 6. Hx of Gout: Stable - Continue Allopurinol 100mg 7. Neuropathy - Continue Pregabalin Dispo: Plan for d/c to SNF tomorrow Diet: Regular DVT ppx: SCDs, lovenox Code status: Full code MDM: son Dylan [phone] PCP: Jennifer Time Spent With Patient Critical Care time: I spent a total of [] minutes of critical care time on this patient's care today; this time is exclusive of procedural time. Quality VTE Deep Vein Thrombosis/Pulmonary Embolism Present on Admission: No
--- NOTE | 2021-07-06 11:02 | PC.NURSE ---
Day shift: Pt OOB to chair. BP 112/64 and Pt c/o nausea. Very painful with approx 4 steps. Pt was medicated for pain per MAR prior to getting OOB w/ PT this AM. In chair at this time. Call light in reach. Pt agrees to not get OOB w/o help from staff.
[2021-07-06 13:00] VITALS: BP 101/55; PULSE 70; RESP 16; TEMP 35.7; O2SAT 95
--- NOTE | 2021-07-06 13:47 | PT.IPTN ---
Current Diagnoses Displaced intertrochanteric fracture of left femur, initial encounter for closed fracture (07/04/21) Surgery Performed Operation Date: 07/03/21 18:30 Actual Procedures p IM Nail Left Hip(Left) - Viji Rangel MD Physical Therapy Treatment Note M2 PT-IP Current Condition Start: 07/04/21 12:26 Freq: NEEDED Status: Active Protocol: Document 07/04/21 10:35 AB (Rec: 07/04/21 12:43 AB [email or web address]) Physical Therapy Current Condition Current Condition Evaluation Date 07/04/21 Treatment Diagnosis L intertrochanteric hip fx s/p nailing; difficulty in walking Onset Date 07/03/21 M3 PT-IP Subjective Start: 07/04/21 12:26 Freq: NEEDED Status: Active Protocol: Document 07/06/21 13:47 AB (Rec: 07/06/21 14:46 AB [email or web address]) Subjective Physical Therapy Visit Type Type Treatment Note Visit Start Time 13:47 Visit Stop Time 14:20 Total Visit Minutes 33 Number of MANAGER SCIENCE Visits 0 Physical Therapy Visit Comments Patient Comments agreed to do PT Therapy Pain Assessment Pain When Pain Assessed At Rest Pain Present Pain Present Pain Reported Location Left Hip Intensity 5 Scale Used increases with movement Pain Behaviors Facial Grimacing,Guarding, Holding Area,Moaning Pain Management Techniques Distraction,Modification of Treatment,Re-positioning, Timing of Activity with Medications M4 PT-IP Mobility and Gait Start: 07/04/21 12:26 Freq: NEEDED Status: Active Protocol: Document 07/06/21 13:47 AB (Rec: 07/06/21 14:46 AB [email or web address]) PT-Bed Mobility Assessment Sit to Supine Sit to Supine Maximum Assistance,2 Person Assistance,Head of Bed Elevated PT-Transfer Assessment Sit to and From Stand Sit to and from Stand Maximum Assistance,1 Person Assistance,Use of Upper Extremities Equipment Transfer Assistive Device Gait Belt,Front Wheeled Walker Orthotic/Prosthetic Devices or Brace: No Transfers Transfer Destination Bed Transfer Technique Stand Step Pivot Transfer Ability Level of Assist Maximum Assistance,1 Person Assistance,Use of Upper Extremities Comments Mobility Comments pt agreed to do PT. completed LAQs in sitting with 5 sec hold on BLE and ankle pumps. completed sit to stand from chair max A and max cues and tolerated ~ 45 sec of standing using FWW for support max A and max cues. required max A for controlled descent to chair. c/o increase pain on L hip and nausea. completed sit to stand again max A and max cues and was able to ambulate ~ 2 ft using FWW max A and cues and chair follow. increase LLE guarding. completed sit to stand again from chair max A and cues and able to take steps towards the bed using FWW max A and side steps towards HOB max A. completed sit to supine max A x 2 and max cues. positioned pt in bed. call light and table placed within reach. pt prefers to sidelie on R. positioned pillows in between LE crosswise. LLE starting to get adductor tightness and with increase LLE IR. positioned LLE with pillows for proper bed positioning. informed and showed NAC on how to position LE properly and understood. Gait Assessment Gait Gait Assistance Required: Maximum Assistance Distance (Feet) 2 Able to Maintain Weight Bearing Status Yes During Gait Assistive Devices Assistive Device Gait Belt,Front Wheeled Walker Orthotic/Prosthetic Devices or Brace: No Gait Deviations General Gait Pattern Antalgic,Decreased Stride Length,Decreased Feet Clearance,Step-to Gait Factors Limiting Gait Function Factors Limiting Gait Function Decreased Activity Tolerance, Decreased Strength,Limited Range of Motion,Pain,Poor Balance,Poor Safety Awareness M5 PT-IP Objective Assessments Start: 07/04/21 12:26 Freq: NEEDED Status: Active Protocol: Document 07/04/21 10:35 AB (Rec: 07/04/21 12:43 AB [email or web address]) Orientation Orientation/Cognition Level of Alertness Confusional State Orientation Name,Place,Situation Safety Awareness Decreased Safety Awareness Gross Range of Motion Lower Extremity ROM Assessment Left Impaired Impairments LLE increase muscle guarding with PROM with increase rigidity/stiffness and resistance with movement Strength Lower Extremity Strength Assessment Left Impaired Hip 2+/5 Knee 2+/5 M6 PT-IP Treatment Start: 07/04/21 12:26 Freq: NEEDED Status: Active Protocol: Document 07/06/21 13:47 AB (Rec: 07/06/21 14:46 AB [email or web address]) Physical Therapy Treatment Education Education Provided Safety M7 PT-IP Assessment and Plan Start: 07/04/21 12:26 Freq: NEEDED Status: Active Protocol: Document 07/06/21 13:47 AB (Rec: 07/06/21 14:46 AB [email or web address]) PT Summary Assessment and Plan Potential Rehabilitation Potential Good Summary Impairments Pain,ROM,Strength,Balance, Coordination,Sensation,Tone, Cognition,Bed Mobility, Transfers,Gait,Activity Tolerance Progress Towards Goals Slow Progress due to Pain,Slow Progress due to Activity Tolerance Assessment Summary pt progressing slowly with mobility but still requires max A and cues and unable to tolerate much activity with c/ o increase L hip pain and nausea. Pt will require SNF rehab to improve strength and function. Goals Bed Mobility Goal Minimal Assistance Transfer Goal Minimal Assistance,Front Wheeled Walker Gait Goal Minimal Assistance,Front Wheel Walker Gait Distance 100 Other Goals improve bed mobiltiy and transfers to SBA using FWW improve ambulation CGA 150 ft SBA up/down 3 steps 1 rail min A Days to Meet Goals 5 Frequency of Treatment Frequency Of Treatment Twice a Day Treatment Plan Physical Therapy Treatment Plan Bed Mobility Training,Transfer Training,Gait Training, Therapeutic Exercise,Balance Retraining,Post Op Education, Discharge Planning,Hot or Cold Pack,Neuromuscular Re-ed, Coordination Retraining,Manual Therapy Other Recommendations and Next Treatment transfers, ambulation Focus Precautions Other Precautions Falls Weight Bearing Status Weight Bearing Status Weight Bear as Tolerated Allowed Weight Bearing Amount (enter % LLE WBAT or #) (%) Recommendations To Nursing Amount of Assist Needed 2 Person Assist Discharge Recommendations PT Discharge Recommendations SNF Rehab Transportation Needs at Discharge Wheelchair/Cabulance,Stretcher /Ambulance
[2021-07-06 15:03] LABS: COVID19 -Nasal RAPID Negative (Negative)
[2021-07-06 15:31] VITALS: BP 97/55; PULSE 62; RESP 18; TEMP 36.1; O2SAT 94
[2021-07-06 19:47] VITALS: BP 122/56; PULSE 84; RESP 18; TEMP 36.6
[2021-07-06] MEDS: ATORVASTATIN 20 MG TABLET PO (20:13)
[2021-07-06] MEDS: MAGNESIUM HYDROXIDE 30 ML UDC PO (20:56)
[2021-07-07 00:15] VITALS: BP 116/54; PULSE 85; RESP 18; TEMP 36.3; O2SAT 95
[2021-07-07] MEDS: TRAMADOL 50 MG TABLET PO ×2 (02:46→10:08)
[2021-07-07] MEDS: LEVOTHYROXINE 88 MCG TABLET PO (06:06)
[2021-07-07] MEDS: PANTOPRAZOLE DR 20 MG TABLET PO (06:06)
[2021-07-07 08:57] VITALS: BP 118/61; PULSE 78; RESP 16; TEMP 35.5; O2SAT 93
--- NOTE | 2021-07-07 09:15 | P.DS_ITS ---
History of Present Illness History of Present Illness Date Patient Seen: 07/07/21 Time Patient Seen: 09:15 Chief complaint: fell off step stool Narrative: Pt presents to ED with acute L hip pain after stool malfunctioned while standing on it in kitchen this afternoon. She has been in good health the stool just broke under her weight.? XR showed acute intertrochanteric fracture which orthopedics is proposing to address. She is not on blood thinners and her last oral intake was this morning about 1030am.? She feels generally ok except for the pain in her leg which is ok as long as she doesn't move it in the slightest. Discharge Providers Provider Date of admission: 07/04/21 10:53 Discharge Date: 07/07/21 Primary care physician: Phil Rodriguez MD Consults: 07/03/21 14:19 Consult to Orthopedic Surgery Stat Comment: Consulting Provider: Viji Rangel Reason for consultation: hip fracture Has provider been notified: Yes 07/03/21 21:09 Consult to Discharge Planning Routine Comment: snf? Consult to Physical Therapy Evaluate & Treat Comment: wbat Physician Instructions: Evaluate and Treat Consult to Respiratory Therapy Evaluate & Treat Comment: Physician Instructions: Evaluate and treat Discharge provider: Brigid Kovacs MD Summary Hospital Course Discharge Diagnosis: 1. Acute intertrochanteric L hip fracture POD #4 s/p intramedullary nailing 2.? Hypothyroidism 3.? Hyperlipidemia 4.? Hypertension 5.? Migraines 6.? Hx of Gout 7.? Neuropathy Hospital Course: The pt presented after fall sustaining left hip fracture. She underwent surgery for operative fixation. The surgery was without complic ations. Postoperatively there were some issues with pain management, as the pt did not tolerate narcotics well due to persistent nausea and vomiting. She was ultimately found to tolerate Tramadol in addition to Tylenol and Ibuprofen for pain control. Ortho approved her for full weight-bearing as tolerated on the left leg at the time of discharge. The pt will discharge to [facility] for rehab. Her other chronic medical conditions remained stable while she was in the hospital. Status at Discharge Cognitive/behavioral status at discharge: oriented Functional status at discharge: wheelchair bound Overall status at discharge: patient is progressing back to baseline Exam Vital Signs (past 8 hours): - 07/07/21 08:57 Temperature 96 F L Pulse Rate 78 Respiratory Rate 16 Blood Pressure 118/61 Pulse Oximetry 93 Oxygen Delivery Method Room Air Oxygen Flow Rate 0 Narrative Exam Narrative: Gen:? NAD, laying in bed on right side, appears well CV:? RRR, no murmurs Resp:? clear to auscultation bilaterally Abd:? soft, nontender, nondistended, normoactive bowel sounds Ext: no edema; left hip bandages c/d/i Objective Labs Result Diagrams: 07/05/21 08:22 07/05/21 08:22 Labs: Laboratory Results - last 24 hr 07/06/21 14:20 SARS-CoV-2 (PCR) Negative [facility] Medical History Elevated blood pressure reading Hypothyroid Social History household members: significant other Smoking Status: Former smoker alcohol intake: former Discharge Plan Discharge Plan Patient Disposition: SNF Transfer to: [facility] Discharge orders & Medications Prescriptions: New tramadol 50 mg Tablet 50 mg PO QID PRN (Reason: Pain, Moderate (4-6)) Qty: 120 RF: 0 levothyroxine 88 mcg Tablet 88 mcg PO DAILY@0600 Qty: 30 RF: 0 propranolol 10 mg Tablet 20 mg PO BID Qty: 60 RF: 0 ibuprofen 400 mg Tablet 400 mg PO Q6HR PRN (Reason: Pain, Mild (1-3)) Qty: 30 RF: 0 docusate sodium 100 mg Capsule 100 mg PO BID Qty: 30 RF: 0 sumatriptan succinate [Imitrex] 50 mg tablet See Rx Instructions .ROUTE .COMPLEX Qty: 10 RF: 0 Continued omeprazole 20 MG capsule,delayed release(DR/EC) 20 mg PO QDAY Qty: 0 RF: 0 atorvastatin [Lipitor] 20 MG tablet 20 mg PO QDAY Qty: 0 RF: 0 acetaminophen [Tylenol Extra Strength] 500 mg tablet 500 mg PO Q6H PRN (Reason: pain) Qty: 14 RF: 0 ondansetron HCl [Zofran] 4 mg tablet 4 mg PO Q8H Qty: 30 RF: 0 hydrocortisone 1 % Cream 1 applic TOPICAL QID PRN (Reason: Itching) RF: 0 Discontinued lovastatin 20 MG tablet 40 mg PO QDAYPM Qty: 1 RF: 0 [L THYROXINE] 75 QDAY Qty: 0 RF: 0 sumatriptan succinate [Imitrex STATdose Refill] 4 MG/0.5 ML cartridge 4 mg SQ Qty: 0 RF: 0 levothyroxine [Synthroid] 75 MCG tablet 0.075 mg PO QDAY Qty: 0 RF: 0 propranolol [Inderal LA] 60 MG capsule,extended release 24 hr 60 mg PO QDAY Qty: 0 RF: 0 ciprofloxacin HCl 500 mg tablet 500 mg PO BID Qty: 10 RF: 0 omeprazole 20 mg capsule,delayed release(DR/EC) 20 mg PO DAILY Qty: 20 RF: 0 propranolol 40 mg tablet 40 mg PO .qd Qty: 30 RF: 11 Follow up/Referrals: Phil Rodriguez MD [Primary Care Provider] - 2 Weeks Diet/Activity/Treatments Diet: Diet as Tolerated and Regular Liquid consistency: Normal/Thin Food texture: Regular Skin/Wound/Dressing Care Report to your healthcare provider any signs of infection, such as:: chills, fever, increased pain, unusual drainage and unusual redness Special Rehabilitation Services Reason for rehabilitation: Post-operative therapy Rehab type: Physical therapy and Occupational therapy Discharge Data Primary Care Provider: Phil Rodriguez Quality VTE Deep Vein Thrombosis/Pulmonary Embolism Present on Admission: No
[2021-07-07] MEDS: ACETAMINOPHEN 325 MG TABLET 975 MG PO (10:08)
[2021-07-07] MEDS: ENOXAPARIN 40 MG/0.4 ML SYRINGE SUBCUT (10:08)
[2021-07-07] MEDS: DOCUSATE 100 MG CAPSULE PO (10:08)
[2021-07-07] MEDS: SODIUM CHLORIDE 0.9% FLUSH 10 ML IV (10:10)
--- NOTE | 2021-07-07 10:52 | PC.NURSE ---
Addendum entered by Lubna Sierra R.N. 07/07/21 13:16: Patient discharged to [facility], report called to Mary Kate. Original Note: Homa falcon.hip dressing is cdi, she is a two person assist when getting up to the chair. Given tramadol for pain. She is going to discharge to [facility] today.
--- NOTE | 2021-07-07 11:13 | CM.DPC ---
DCP Cont: Patient can go to [facility] today. Dr. Kovacs was here, and printed out her med sheets for her. She signed med sheets, and completed discharge. Spoke to February at [facility] prior, and she stated, she is expecting her. She is already up to date on her COVID swab, and they have received her vaccine information. PASSR was completed. Faxed [facility] her orders, prescription, and DC Summary. Updated nurse, Lubna, and gave her phone number to give report, and updated main nursing station white board. P: Patient is to discharge to [facility] today, and confirmed apple picker time of 1300. Rhianna Sales, [employer]
--- NOTE | 2021-07-07 11:55 | PM.PNPO.1 ---
Subjective Subjective Date Patient Seen: 07/07/21 Time Patient Seen: 11:55 Interval history: She notes she is doing okay but she still has moderate pain in her hip. She has been out of bed to the chair and she is working being discharged. Exam Vital Signs (past 8 hours): - 07/07/21 08:57 Temperature 96 F L Pulse Rate 78 Respiratory Rate 16 Blood Pressure 118/61 Pulse Oximetry 93 Oxygen Delivery Method Room Air Oxygen Flow Rate 0 Narrative Exam Narrative: Dressings intact she is neurologically intact distally she can fire toe flexors and extensors with minimal pain. Calfs are soft bilaterally there is anticipated hip swelling and thigh swelling. Objective Labs Result Diagrams: 07/05/21 08:22 07/05/21 08:22 Labs: Laboratory Results - last 24 hr 07/06/21 14:20 SARS-CoV-2 (PCR) Negative [facility] Medical History Elevated blood pressure reading Hypothyroid Social History household members: significant other Smoking Status: Former smoker alcohol intake: former Assessment & Plan Post-op Postoperative Procedures: Procedures Operation Date: 07/03/21 18:30 Actual Procedure Side Surgeon p IM Nail Left Hip Left Viji Rangel MD Postoperative day: 4 Postoperative status: doing well Postoperative plan: routine post-op care Postoperative plan narrative: Doing well postoperatively. I think she is stable for discharge and can follow up with Dr. Hairston in 10-14 days. Time Spent With Patient Time with patient: less than 15 minutes Quality VTE Deep Vein Thrombosis/Pulmonary Embolism Present on Admission: No
--- NOTE | 2021-07-07 12:08 | PT.IPTN ---
Current Diagnoses Displaced intertrochanteric fracture of left femur, initial encounter for closed fracture (07/04/21) Surgery Performed Operation Date: 07/03/21 18:30 Actual Procedures p IM Nail Left Hip(Left) - Viji Rangel MD Physical Therapy Treatment Note M2 PT-IP Current Condition Start: 07/04/21 12:26 Freq: NEEDED Status: Active Protocol: Document 07/04/21 10:35 AB (Rec: 07/04/21 12:43 AB [id number]) Physical Therapy Current Condition Current Condition Evaluation Date 07/04/21 Treatment Diagnosis L intertrochanteric hip fx s/p nailing; difficulty in walking Onset Date 07/03/21 M3 PT-IP Subjective Start: 07/04/21 12:26 Freq: NEEDED Status: Active Protocol: Document 07/07/21 12:08 AW (Rec: 07/07/21 12:28 AW [id number]) Subjective Physical Therapy Visit Type Type Treatment Note Visit Start Time 11:44 Visit Stop Time 12:08 Total Visit Minutes 24 Number of [employer]PERATOR Visits 0 Physical Therapy Visit Comments Patient Comments Pt agreed to work with PT Therapy Pain Assessment Pain When Pain Assessed At Rest Pain Present Pain Present Pain Reported M4 PT-IP Mobility and Gait Start: 07/04/21 12:26 Freq: NEEDED Status: Active Protocol: Document 07/07/21 12:08 AW (Rec: 07/07/21 12:28 AW [id number]) PT-Bed Mobility Assessment Supine to Sit Supine to Sit Moderate Assistance,Head of Bed Elevated,Bedrails Sit to Supine Sit to Supine Maximum Assistance,1 Person Assistance,Head of Bed Elevated PT-Transfer Assessment Sit to and From Stand Sit to and from Stand Maximum Assistance,1 Person Assistance,Use of Upper Extremities Equipment Transfer Assistive Device Gait Belt,Front Wheeled Walker Orthotic/Prosthetic Devices or Brace: No Transfers Transfer Destination Bed,Chair Transfer Technique Stand Step Pivot Transfer Ability Level of Assist Maximum Assistance,1 Person Assistance,Use of Upper Extremities Comments Mobility Comments Pt was in right sidelying as PT arrived. BP 105/55 HR 85. She moved toward right side of bed and needed mod assist to sit up. She stood from the bed max A x 1 and transferred to chair set up on her right side max A x 1. As she sat, she began to complain of nausea. BP was stable. Pt agreed to stand again and attempt ambulation, requiring max assist at every step. She stepped forward and backward 2 feet but requested return to bed due to nausea. She sat EOB and needed max assist to elevate BLE to the bed and to reposition in sidelying. Pt was left with call light and tray table in reach. BP end of session was 146/65 HR 87. Gait Assessment Gait Gait Assistance Required: Maximum Assistance Distance (Feet) 2 Able to Maintain Weight Bearing Status Yes During Gait Assistive Devices Assistive Device Gait Belt,Front Wheeled Walker Gait Deviations General Gait Pattern Antalgic,Decreased Stride Length,Decreased Feet Clearance,Step-to Gait Factors Limiting Gait Function Factors Limiting Gait Function Decreased Activity Tolerance, Decreased Strength,Limited Range of Motion,Pain,Poor Balance,Poor Safety Awareness Comments Gait Comments See mobility comments for details. M5 PT-IP Objective Assessments Start: 07/04/21 12:26 Freq: NEEDED Status: Active Protocol: Document 07/04/21 10:35 AB (Rec: 07/04/21 12:43 AB [id number]) Orientation Orientation/Cognition Level of Alertness Confusional State Orientation Name,Place,Situation Safety Awareness Decreased Safety Awareness Gross Range of Motion Lower Extremity ROM Assessment Left Impaired Impairments LLE increase muscle guarding with PROM with increase rigidity/stiffness and resistance with movement Strength Lower Extremity Strength Assessment Left Impaired Hip 2+/5 Knee 2+/5 M6 PT-IP Treatment Start: 07/04/21 12:26 Freq: NEEDED Status: Active Protocol: Document 07/07/21 12:08 AW (Rec: 07/07/21 12:28 AW [id number]) Physical Therapy Treatment Education Education Provided Safety M7 PT-IP Assessment and Plan Start: 07/04/21 12:26 Freq: NEEDED Status: Active Protocol: Document 07/07/21 12:08 AW (Rec: 07/07/21 12:28 AW [id number]) PT Summary Assessment and Plan Potential Rehabilitation Potential Good Summary Impairments Pain,ROM,Strength,Balance, Coordination,Sensation,Tone, Cognition,Bed Mobility, Transfers,Gait,Activity Tolerance Progress Towards Goals Slow Progress due to Pain,Slow Progress due to Activity Tolerance Assessment Summary Pt continues to require max assist and cues for mobility and is limited at this time by nausea. She will require SNF rehab to improve strength and mobility independence. Goals Bed Mobility Goal Minimal Assistance Transfer Goal Minimal Assistance,Front Wheeled Walker Gait Goal Minimal Assistance,Front Wheel Walker Gait Distance 100 Other Goals improve bed mobiltiy and transfers to SBA using FWW improve ambulation CGA 150 ft SBA up/down 3 steps 1 rail min A Days to Meet Goals 5 Frequency of Treatment Frequency Of Treatment Twice a Day Treatment Plan Physical Therapy Treatment Plan Bed Mobility Training,Transfer Training,Gait Training, Therapeutic Exercise,Balance Retraining,Post Op Education, Discharge Planning,Hot or Cold Pack,Neuromuscular Re-ed, Coordination Retraining,Manual Therapy Other Recommendations and Next Treatment transfers, ambulation Focus Precautions Other Precautions Falls Weight Bearing Status Weight Bearing Status Weight Bear as Tolerated Allowed Weight Bearing Amount (enter % LLE WBAT or #) (%) Recommendations To Nursing Amount of Assist Needed 2 Person Assist Discharge Recommendations PT Discharge Recommendations SNF Rehab Transportation Needs at Discharge Wheelchair/Cabulance,Stretcher /Ambulance
== END 2021-07-07 13:17 | DRG 482 ==
LOC: ED 14:21 → AC 14:47
PROVIDERS: Orthopaedic Surgery Foot and Ankle Surgery; Admitting Provider Family Medicine; Emergency Provider Emergency Medicine; PCP Family Medicine; Referring Provider Emergency Medicine; Visit Provider Family Medicine
PROC: (CPT 27245; principal; 2021-07-03 18:30)
DX: S72.145A Nondisplaced intertrochanteric fracture of left femur, initial encounter for closed fracture (principal); E03.9 Hypothyroidism, unspecified; E78.5 Hyperlipidemia, unspecified; I10 Essential (primary) hypertension; M10.9 Gout, unspecified; G62.9 Polyneuropathy, unspecified; G89.18 Other acute postprocedural pain; R11.2 Nausea with vomiting, unspecified; W07.XXXA Fall from chair, initial encounter; Z20.822 Contact with and (suspected) exposure to COVID-19
CPT/HCPCS: 36415; 73502; 76000; 80048; 85025; 85610; 85730; 86850; 86870; 86900; 86901; 87635; 97110; 97162; 97530; 99232; 99238; 99284; C9803; G0378; J1100; J1170; J1650; J1885; J2405; J2704; J3010

== ENCOUNTER → 2022-01-13 10:37 | Outpatient (CLI) | payer MEDICARE, SELFPAY ==
[2021-07-03 21:45] VITALS: BMI 30.2
--- NOTE | 2022-01-13 10:41 | DI.CT.S_ITS ---
PROCEDURE: CT LE LT W CON INDICATIONS: OSTEOPOROSIS HIP FX; LEFT HIP PAIN TECHNIQUE: Noncontrast 3 mm axial sections acquired through the bony pelvis. Additional 3 mm axial sections acquired through the symptomatic hip joint, with coronal and sagittal reformats. COMPARISON: [facility] [place], [place], XR PELVIS WITH LATERAL HIP LEFT, 12/25/2021, 9:26. FINDINGS: Image quality: Excellent. Bones: Patient is status post prior internal fixation of left proximal femur with intramedullary jay and fixation screws in place. No evidence of hardware loosening or failure is seen. Nearly healed left intertrochanteric fracture is noted with near complete bony union and increased sclerosis and callus formation surrounding proximal femoral shaft fracture site. Moderate left hip joint osteoarthritic changes are seen. No evidence of avascular necrosis of femoral head. No other fracture or dislocation is seen. Postfusion changes in visualized lower lumbar spine are seen. No suspicious intraosseous lesion. Soft tissues: No gross left hip or left andrew pelvic soft tissue abnormality is seen. No abnormal density is seen in pelvic and hip muscles. There is no pelvic free fluid or free air. No abnormal bowel wall thickening. Bladder wall thickness is normal. IMPRESSION: 1. Prior fixation of left proximal femur with nearly healed intertrochanteric fracture involving left proximal femur. No evidence of hardware loosening or failure. No new fracture or dislocation. 2. Moderate left hip joint osteoarthritis. No evidence of a vascular necrosis of femoral head. 3. No left hip or pelvic soft tissue abnormality. Dictated by: Gerardo Nova M.D. on 01/13/2022 at 13:10 Approved by: Gerardo Nova M.D. on 01/13/2022 at 13:40
== END ==
PROVIDERS: PCP Physician Assistant; Referring Provider Orthopaedic Surgery Foot and Ankle Surgery; Visit Provider Orthopaedic Surgery Foot and Ankle Surgery
DX: M80.00XD Age-related osteoporosis with current pathological fracture, unspecified site, subsequent encounter for fracture with routine healing; S72.142D Displaced intertrochanteric fracture of left femur, subsequent encounter for closed fracture with routine healing; Z78.0 Asymptomatic menopausal state; M16.12 Unilateral primary osteoarthritis, left hip
CPT/HCPCS: 73700; 77080

== ENCOUNTER → 2022-06-02 15:44 | Outpatient (CLI) | payer MEDICARE, SELFPAY ==
[2021-07-03 21:45] VITALS: BMI 30.2
--- NOTE | 2022-06-02 15:45 | DI.MG.S_ITS ---
BILATERAL DIGITAL SCREENING MAMMOGRAM 3D/2D WITH CAD: 06/02/2022 CLINICAL: Routine screening. Comparison is made to exams dated: 05/02/2021 mammogram, 04/11/2020 mammogram, and 04/06/2019 mammogram - [facility]. There are scattered areas of fibroglandular density in both breasts (category b / 25%-50% glandular tissue). Current study was also evaluated with a Computer Aided Detection (CAD) system. No significant masses, calcifications, or other findings are seen in either breast. There has been no significant interval change. IMPRESSION: NEGATIVE There is no mammographic evidence of malignancy. A 1 year screening mammogram is recommended. Based on the Tyrer Cuzick model (a risk assessment model) the patient's lifetime risk is 1.6% and her 10 year risk is 0.0%. According to the ACR, ACS, and NCCN guidelines, an annual breast MRI exam along with mammogram is recommended if the patient's lifetime risk is 20% or greater. This exam was interpreted at Station ID: [id number]. NOTE: For mammograms, a report in lay terms will be sent to the patient. Approximately 15% of breast malignancies will not be visualized mammographically. In the management of a palpable breast mass, a negative mammogram must not discourage biopsy of a clinically suspicious lesion. Electronically Signed By: Duncan sheppard/sherly:06/03/2022 16:26:39 letter sent: Normal Exam ACR BI-RADS Category 1: Negative [id number]
== END ==
PROVIDERS: PCP Physician Assistant; Referring Provider Physician Assistant; Visit Provider Physician Assistant
DX: Z12.31 Encounter for screening mammogram for malignant neoplasm of breast (principal)
CPT/HCPCS: 77063; 77067

== ENCOUNTER → 2022-08-16 09:26 | Outpatient (CLI) | payer MEDICARE, SELFPAY ==
[2021-07-03 21:45] VITALS: BMI 30.2
[2022-08-16 12:59] LABS: Influenza A - CEPHEID Flu A NEGATIVE (NEGATIVE); Influenza B - CEPHEID Flu B NEGATIVE (NEGATIVE); Respiratory Syncytial Virus POSITIVE (Negative)
[2022-08-16 13:01] LABS: COVID-19 CEPHEID 4-PLEX PCR Negative (Negative)
== END ==
PROVIDERS: PCP Physician Assistant; Visit Provider Physician Assistant
DX: R05.1 Acute cough (principal); R06.2 Wheezing
CPT/HCPCS: 0241U

== ENCOUNTER 2022-09-28 11:15 | Emergency (ER) | payer MEDICARE, SELFPAY ==
[2021-07-03 21:45] VITALS: BMI 30.2
[2022-09-28] VITALS (17 sets, daily range): BP systolic 132–179; BP diastolic 60–86; PULSE 71–80; RESP 21–33; TEMP 36.6; O2SAT 91–99; BMI 31.9
--- NOTE | 2022-09-28 12:10 | DI.RAD.S_ITS ---
PROCEDURE: XR CHEST 1V INDICATIONS: chest pain TECHNIQUE: One view of the chest was acquired. COMPARISON: [facility], , XR CHEST 1V, 01/16/2020, 13:24. FINDINGS: Surgical changes and devices: Surgical clips in the thyroid bed noted Lungs and pleura: Lungs are clear. No pleural effusions or pneumothorax. Mediastinum: Mediastinal contours appear normal. Heart size is normal. Bones and chest wall: No suspicious bony lesions. Overlying soft tissues appear unremarkable. IMPRESSION: No acute cardiopulmonary findings Approved by: Tyree Forman M.D. on 09/28/2022 at 11:48
[2022-09-28] MEDS: ASPIRIN 81 MG CHEW TAB 324 MG PO (12:16)
[2022-09-28 12:31] LABS: COVID19 -Nasal RAPID Negative (Negative)
[2022-09-28 12:32] LABS: Add Manual Diff / Slide Review NO; Basophils Absolute Auto 100 /uL (0-100); Basophils Percent Auto 1.2 % (0-2); Eosinophils Absolute Auto 200 /uL (0-450); Eosinophils Percent Auto 2.7 % (2-4); Hematocrit 43.2 % (36-46); Hemoglobin 14.1 g/dL (12.0-16.0); Lymphocytes Absolute Auto 1900 /uL (1100-4500); Lymphocytes Percent Auto 22.5 % (25-40); Mean Corpuscular HGB Conc 32.8 % (30-36); Mean Corpuscular Hemoglobin 28.1 PG (26-34); Mean Corpuscular Volume 85.8 fL (80-100); Monocytes Absolute Auto 700 /uL (0-900); Monocytes Percent Auto 8.9 % (3-14); Neutrophils Absolute Auto 5400 /uL (1500-7000); Neutrophils Percent Auto 64.7 % (50-75); Platelet Count 266 X10^3/uL (150-400); Red Blood Cell Count 5.03 X10^6/uL (4.0-5.2); White Blood Cell Count 8.4 X10^3/uL (4.5-11.0)
[2022-09-28 12:39] LABS: Prothrombin Time 11.4 SECONDS (10.1-12.7)
[2022-09-28 12:41] LABS: PTT Partial Thromboplastin Tim 33 SECONDS (26-36)
[2022-09-28 12:43] LABS: Alanine Aminotransferase 41 IU/L (<35); Albumin 4.5 g/dL (3.5-5.0); Albumin Globulin Ratio 1.2 (1.0-2.8); Alkaline Phosphatase 102 U/L (38-126); Aspartate Aminotransferase 39 IU/L (14-36); BUN Creatinine Ratio 22.5 (6-22); Bilirubin Total 0.5 mg/dL (0.2-1.3); Blood Urea Nitrogen 25 mg/dL (7-17); Calcium 10.9 mg/dL (8.4-10.2); Carbon Dioxide 25 mmol/L (22-32); Chloride 102 mmol/L (98-107); Creatine Kinase 49 U/L (30-135); Estimated Glomerular Filt Rate 50 mL/min (>60); Globulin 3.9 g/dL (1.7-4.1); Glucose 104 mg/dL (80-110); HEMOLYSIS < 15 (0-50); Lipase 108 U/L (23-300); Potassium 4.1 mmol/L (3.4-5.1); Sodium 137 mmol/L (137-145); Total Protein 8.4 g/dL (6.3-8.2)
--- NOTE | 2022-09-28 12:45 | PC.NURSE ---
moved to bed for ekg by tender labor, tender labor noted wheezing with exertion
[2022-09-28 12:54] LABS: Troponin I < 0.012 ng/mL (0.01-0.034)
--- NOTE | 2022-09-28 14:32 | PC.NURSE ---
pt appears to be more dyspneic with and without exertion now pt states thats just cause im fat and i hurt so much maybe repeat ekg and trop obtained, unable to obtain piv yet.
--- NOTE | 2022-09-28 14:38 | ED.CHESTPAIN ---
HPI - Chest Pain General Chief Complaint: Chest Pain Stated Complaint: Sent by [facility] [place] pain under boob' upset stomach t-5 Time Seen by Provider: 09/28/22 13:05 Source: patient Mode of arrival: Ambulatory Limitations: no limitations History of Present Illness HPI narrative: 82-year-old woman presents with epigastric pain now radiating upper under her right breast been present for 5-6 days increasingly uncomfortable and difficulty finding a comfortable position to be in. No fevers, vomiting. Not worse with deep breathing. No recent upper respiratory infections. No palpitations, no headaches. She has not had similar symptoms. She describes no recent trauma. She has a history of reflux, migraine, hypothyroidism, asthma. She believes she may have had her gallbladder out but isn't entirely sure. Related Data Home Medications Medication Instructions Recorded Confirmed atorvastatin 20 mg tablet (Lipitor) 20 mg PO QDAY ##0 08/25/17 09/28/22 omeprazole 20 mg capsule,delayed 20 mg PO QDAY ##0 08/25/17 09/28/22 release hydrocortisone 1 % topical cream 1 applic topical QID PRN Itching 07/03/21 09/28/22 Previous Rx's Medication Instructions Recorded acetaminophen 500 mg tablet 500 mg PO Q6H PRN pain #14 tabs 01/16/20 (Tylenol Extra Strength) ondansetron HCl 4 mg tablet 4 mg PO Q8H nausea #30 tabs 01/16/20 (Zofran) docusate sodium 100 mg capsule 100 mg PO BID #30 caps 07/07/21 ibuprofen 400 mg tablet 400 mg PO Q6HR PRN Pain, Mild 07/07/21 (1-3) #30 tabs levothyroxine 88 mcg tablet 88 mcg PO DAILY@0600 #30 tabs 07/07/21 propranolol 10 mg tablet 20 mg PO BID #60 tabs 07/07/21 sumatriptan succinate 50 mg tablet See Rx Instructions PO .COMPLEX 07/07/21 (Imitrex) #10 tabs tramadol 50 mg tablet 50 mg PO QID PRN Pain, Moderate 07/07/21 (4-6) #120 tabs albuterol sulfate 90 mcg/actuation 2 puff inhalation Q4-6H PRN 08/16/22 aerosol inhaler shortness of breath or wheezing #6.7 grams sulfamethoxazole 800 1 tab PO BID #10 tabs 09/28/22 mg-trimethoprim 160 mg tablet (Bactrim DS) Allergies Allergy/AdvReac Type Severity Reaction Status Date / Time hydrocodone Allergy Severe Swelling Verified 09/28/22 10:40 of Lip/Tongue/Throat amoxicillin [From Augmentin] Allergy Mild Hives Verified 09/28/22 10:40 clavulanic acid Allergy Mild Hives Verified 09/28/22 10:40 [From Augmentin] prednisone [PREDNISONE] Allergy Unknown Verified 09/28/22 10:40 Patient History Medical History (Updated 09/28/22 @ 18:45 by Sammie Syed MD) Elevated blood pressure reading Hypothyroid Social History household members: significant other Smoking Status: Former smoker alcohol intake: former Smoking Status: Former smoker alcohol intake frequency: holidays/special occasions only Substance Use Type: does not use Exam Initial Vital Signs Initial Vital Signs: Vital Signs Temperature 97.9 F 09/28/22 12:06 Pulse Rate 78 09/28/22 12:06 Respiratory Rate 21 09/28/22 12:06 Blood Pressure 132/81 09/28/22 12:06 Pulse Oximetry 96 09/28/22 12:06 Oxygen Delivery Method 09/28/22 12:06 General: Healthy appearing, moderate distress with right upper quadrant pain, unable to find a comfortable position in bed.. Able to give a complete history. Well-nourished well-developed HEENT: Moist mucous membranes, normal sclera with reactive pupils, Respiratory: Lungs are clear to auscultation, no wheezing no rales no rhonchi. Full and symmetrical air movement Cardiac: Regular rate and rhythm no murmurs no bruits Abdomen: Soft, epigastric tenderness into the right upper quadrant radiating up under her right breast. There are no skin changes and no abnormalities or tenderness in the breast itself. No tenderness with chest wall manipulation. Skin: Warm and dry, no rashes can area of pain. She does have a zoster rash that is in the final stages of healing right side L2 distribution Neurologic: Grossly neurologically intact with no obvious asymmetries or abnormalities Extremities: No trauma, well perfused Psych: Cooperative, appropriate insight and affect Course Orders Ordered: ED Orders 09/28/22 12:10 XR chest 1V Stat COVID19 -Nasal RAPID/Pre-Proc Stat 09/28/22 12:24 Complete Blood Count AUTO DIFF Stat Comprehensive Metabolic Panel Stat Lipase Stat Magnesium Stat Partial Thromboplastin Time Stat Prothrombin Time INR Stat Troponin & CK Cardiac Panel Stat 09/28/22 12:43 EKG-12 Lead Stat 09/28/22 14:20 Trop I [Troponin I] Stat 09/28/22 14:28 EKG-12 Lead Stat 09/28/22 14:48 CT abdomen pelvis w con Stat 09/28/22 15:25 Urine Culture Stat Urine Microscopic Stat Discontinued Medications Acetaminophen (Acetaminophen 325 Mg Tablet) 975 mg PO NOW ONE Stop: 09/28/22 14:48 Last Admin: 09/28/22 14:59 Dose: 975 mg Documented By: MATT Aspirin (Aspirin 81 Mg Chew Tab) 324 mg PO NOW ONE Stop: 09/28/22 12:11 Last Admin: 09/28/22 12:16 Dose: 324 mg Documented By: MATT Sodium Chloride (Normal Saline 0.9%) 1,000 mls @ 1,000 mls/hr IV BOLUS ONE Stop: 09/28/22 15:46 Last Infusion: 09/28/22 17:35 Dose: 0 mls/hr Documented By: Admin: 09/28/22 14:59 Dose: 1,000 mls/hr Documented By: MATT Vital Signs Vital signs: Vital Signs - 8 hr 09/28/22 12:06 09/28/22 13:23 09/28/22 13:00 Temperature 97.9 F Pulse Rate 78 71 73 Respiratory Rate 21 24 24 Blood Pressure 132/81 132/60 Pulse Oximetry 96 96 95 Oxygen Delivery Method Room Air Room Air 09/28/22 12:45 09/28/22 14:17 09/28/22 14:30 Temperature Pulse Rate 79 76 80 Respiratory Rate 24 30 H 28 H Blood Pressure 136/60 Pulse Oximetry 95 95 97 Oxygen Delivery Method 09/28/22 14:49 09/28/22 14:49 09/28/22 15:00 Temperature Pulse Rate 74 71 Respiratory Rate 33 H 26 H Blood Pressure 168/83 H Pulse Oximetry 97 91 Oxygen Delivery Method 09/28/22 15:30 09/28/22 16:00 09/28/22 16:03 Temperature Pulse Rate 73 73 73 Respiratory Rate 30 H Blood Pressure Pulse Oximetry 99 97 97 Oxygen Delivery Method Room Air Room Air 09/28/22 16:03 09/28/22 16:30 09/28/22 17:00 Temperature Pulse Rate 71 73 Respiratory Rate 28 H 29 H Blood Pressure 179/86 H Pulse Oximetry 96 98 Oxygen Delivery Method 09/28/22 17:30 09/28/22 18:00 Temperature Pulse Rate 78 75 Respiratory Rate 25 H 26 H Blood Pressure Pulse Oximetry 97 96 Oxygen Delivery Method MDM - Chest Pain Lab Data Result diagrams: 09/28/22 12:24 09/28/22 12:24 Labs: Lab Results 09/28/22 09/28/22 09/28/22 Range/Units 12:10 12:24 12:24 WBC 8.4 (4.5-11.0) X10^3/uL RBC 5.03 (4.0-5.2) X10^6/uL Hgb 14.1 (12.0-16.0) g/dL Hct 43.2 (36-46) % MCV 85.8 (80-100) fL MCH 28.1 (26-34) PG MCHC 32.8 (30-36) % RDW 15.0 H (11.6-14.8) % Plt Count 266 (150-400) X10^3/uL Neut % (Auto) 64.7 (50-75) % Lymph % (Auto) 22.5 L (25-40) % [place] % (Auto) 8.9 (3-14) % Eos % (Auto) 2.7 (2-4) % Baso % (Auto) 1.2 (0-2) % Neut # (Auto) 5400 (6329-7817) /uL Lymph # (Auto) 1900 (1286-5388) /uL [place] # (Auto) 700 (0-900) /uL Eos # (Auto) 200 (0-450) /uL Baso # (Auto) 100 (0-100) /uL PT 11.4 (10.1-12.7) SECONDS INR 1.0 (0.9-1.3) APTT 33 (26-36) SECONDS Sodium (137-145) mmol/L Potassium (3.4-5.1) mmol/L Chloride (98-107) mmol/L Carbon Dioxide (22-32) mmol/L BUN (7-17) mg/dL Creatinine (0.52-1.04) mg/dL Estimated GFR (>60) mL/min BUN/Creatinine Ratio (6-22) Glucose (80-110) mg/dL Calcium (8.4-10.2) mg/dL Magnesium (1.6-2.3) mg/dL Total Bilirubin (0.2-1.3) mg/dL AST (14-36) IU/L ALT (<35) IU/L Alkaline Phosphatase (38-126) U/L Total Creatine Kinase (30-135) U/L CK-MB (CK-2) CK-MB (CK-2) Rel Index Troponin I (0.01-0.034) ng/mL Total Protein (6.3-8.2) g/dL Albumin (3.5-5.0) g/dL Globulin (1.7-4.1) g/dL Albumin/Globulin Ratio (1.0-2.8) Lipase (23-300) U/L Urine RBC (0-5/HPF) Urine WBC (0-5/HPF) Ur Squamous Epith Cells (0-5/HPF) Urine Bacteria (None) Ur Culture Indicated? SARS-CoV-2 (PCR) Negative (Negative) 09/28/22 09/28/22 09/28/22 Range/Units 12:24 14:20 15:25 WBC (4.5-11.0) X10^3/uL RBC (4.0-5.2) X10^6/uL Hgb (12.0-16.0) g/dL Hct (36-46) % MCV (80-100) fL MCH (26-34) PG MCHC (30-36) % RDW (11.6-14.8) % Plt Count (150-400) X10^3/uL Neut % (Auto) (50-75) % Lymph % (Auto) (25-40) % [place] % (Auto) (3-14) % Eos % (Auto) (2-4) % Baso % (Auto) (0-2) % Neut # (Auto) (9318-8592) /uL Lymph # (Auto) (7720-1067) /uL [place] # (Auto) (0-900) /uL Eos # (Auto) (0-450) /uL Baso # (Auto) (0-100) /uL PT (10.1-12.7) SECONDS INR (0.9-1.3) APTT (26-36) SECONDS Sodium 137 (137-145) mmol/L Potassium 4.1 (3.4-5.1) mmol/L Chloride 102 (98-107) mmol/L Carbon Dioxide 25 (22-32) mmol/L BUN 25 H (7-17) mg/dL Creatinine 1.11 H (0.52-1.04) mg/dL Estimated GFR 50 L (>60) mL/min BUN/Creatinine Ratio 22.5 H (6-22) Glucose 104 (80-110) mg/dL Calcium 10.9 H (8.4-10.2) mg/dL Magnesium 2.0 (1.6-2.3) mg/dL Total Bilirubin 0.5 (0.2-1.3) mg/dL AST 39 H (14-36) IU/L ALT 41 H (<35) IU/L Alkaline Phosphatase 102 (38-126) U/L Total Creatine Kinase 49 (30-135) U/L CK-MB (CK-2) TNP CK-MB (CK-2) Rel Index TNP Troponin I < 0.012 < 0.012 (0.01-0.034) ng/mL Total Protein 8.4 H (6.3-8.2) g/dL Albumin 4.5 (3.5-5.0) g/dL Globulin 3.9 (1.7-4.1) g/dL Albumin/Globulin Ratio 1.2 (1.0-2.8) Lipase 108 (23-300) U/L Urine RBC 1-5/hpf (0-5/HPF) Urine WBC 5-10/hpf H (0-5/HPF) Ur Squamous Epith Cells 0-1 /hpf (0-5/HPF) Urine Bacteria Many (>30) H (None) Ur Culture Indicated? Specimen cultured SARS-CoV-2 (PCR) (Negative) Urine Dip Bedside Urine Glucose Negative Bedside Urine Bilirubin - Negative Bedside Urine Ketone - Negative Urine Specific Arthur 1.015 Bedside Urine Occult Blood +++ Bedside Urine pH 6.0 Bedside Urine Protein - Negative Bedside Urine Urobilinogen - Negative Bedside Urine Nitrite + Positive Bedside Urine Leukocytes - Negative Esterase ECG Data Interpretation: 1243 Sinus rhythm with first-degree block, Mild left axis deviation, Nonspecific ST T wave changes no acute ischemia. 1428 Sinus rhythm at a rate of 72 No changes compared to initial EKG MDM Narrative Medical decision making narrative: MDM CC: 4 days of epigastric/right upper quadrant abdominal pain radiating up toward her right breast Complicating co-morbidities: Mild cognitive deficits, unsure if she has had her gallbladder removed or not. Difficulty finding a primary care physician going back and forth between [place] and [place] Corroborating data: Data collected from: patient Medical records reviewed: From primary care and general surgery Differential considered: Acute cholecystitis, liver abnormalities, ruptured appendicitis, possibility of free air, intra-abdominal abscess, pyelonephritis, right lower lobe pneumonia, shingles. Doubt acute coronary syndrome Exam documented above, pertinent findings include: Moderate tenderness in the right upper quadrant without rebound or guarding Lab Test results independently reviewed as above. Pertinent findings: CBC is unremarkable suggesting absence of infection Chemistries indicate minimal AST ALT elevation without bilirubin or alkaline phos changes Urine has white blood cells and bacteria and has been cultured Independently reviewed EKG as above Imaging studies independently reviewed: Chest x-ray shows no acute findings. No acute CT findings, confirmation of cholecystectomy diverticulosis without diverticulitis Treatments: She is given some Tylenol and prior to pulling her discharge is given a dose of Toradol to help with pain Re-evaluations: 638pm on re-evaluation she is still hurting. Skin is again closely re-examined. She notes that she has had multiple recurrent episodes of shingles. No rashes appreciated at the area of concern. CT scan findings reviewed with her. No acute explanation is found for the severe pain. Recommended ibuprofen and Tylenol and she declined any narcotic pain medications. Suggested that she follow-up with primary care here in [place] and she will need to call the hospital to find an open practice. Told her to carefully watch for signs of developing zoster in the area of concern. Encouraged to return if symptoms worsen. She is safe for discharge home Diagnosis: Right upper quadrant pain. May be shingles prodrome Disposition: see below, along with detailed discharge instructions that have been reviewed with patient as well as indications for ED re-evaluation and additional outpatient follow up Discharge Plan Departure Patient Disposition: Home Clinical Impression: Abdominal pain, acute, right upper quadrant Instructions: DI for Abdominal Pain-Adult Activity Restrictions/Additional Instructions: Thank you for coming in today I do not have a life-threatening explanation for the pain that you are experiencing on your right side. He is hypoxic your lab work is unremarkable. Your urine does suggest that you have a bladder infection however I think that this is true but not causing the right upper quadrant pain you are having. There is no evidence of acute gallbladder issues (you have had your gallbladder removed), abdominal infection, bowel obstruction, pneumonia on the right side. Your pain is quite suspicious for shingles however there is no rash yet developing. Please watch carefully in that area to see if you develop a shingles type rash. If you do urine return to the emergency department or urgent care can get you started on antiviral medications I am going to put you on Septra for 5 days for an incidentally noted bladder infection. [facility] prescription [facility] for you I am also going to encourage you to call the main number at [facility], [phone] and ask them to help you find a primary care physician. If they tell you the next appointment is in 3 months, please go ahead and take that appointment. I wish you the very best. It was wonderful to see you again. If you find that you are getting worse or develop any new symptoms, please feel free to return to the emergency department for further evaluation. Prescriptions: New sulfamethoxazole-trimethoprim [Bactrim DS] 800-160 mg tablet 1 tab PO BID Qty: 10 0RF No Action albuterol sulfate 90 mcg/actuation HFA aerosol inhaler 2 puff inhalation Q4-6H PRN (Reason: shortness of breath or wheezing) Qty: 6.7 0RF omeprazole 20 MG capsule,delayed release(DR/EC) 20 mg PO QDAY Qty: 0 atorvastatin [Lipitor] 20 MG tablet 20 mg PO QDAY Qty: 0 acetaminophen [Tylenol Extra Strength] 500 mg tablet 500 mg PO Q6H PRN (Reason: pain) Qty: 14 0RF ondansetron HCl [Zofran] 4 mg tablet 4 mg PO Q8H Qty: 30 0RF hydrocortisone 1 % Cream 1 applic TOPICAL QID PRN (Reason: Itching) tramadol 50 mg Tablet 50 mg PO QID PRN (Reason: Pain, Moderate (4-6)) Qty: 120 0RF levothyroxine 88 mcg Tablet 88 mcg PO DAILY@0600 Qty: 30 0RF propranolol 10 mg Tablet 20 mg PO BID Qty: 60 0RF ibuprofen 400 mg Tablet 400 mg PO Q6HR PRN (Reason: Pain, Mild (1-3)) Qty: 30 0RF docusate sodium 100 mg Capsule 100 mg PO BID Qty: 30 0RF sumatriptan succinate [Imitrex] 50 mg tablet See Rx Instructions .ROUTE .COMPLEX Qty: 10 0RF Rx Instructions: take 1 tab at onset of headache; if no relief may repeat 1 tab after at least 2 hrs; max = 4 tabs/24 hr Referrals: Isauro Babcock PA-C [Primary Care Provider] - Stand Alone Forms: Patient Portal/API
--- NOTE | 2022-09-28 14:48 | DI.CT.S_ITS ---
PROCEDURE: CT ABDOMEN PELVIS W CON INDICATIONS: Right upper quadrant pain TECHNIQUE: After the administration of intravenous contrast, axial sections acquired from the lung bases to the pubic symphysis. Coronal and sagittal reformats were performed. For radiation dose reduction, the following was used: automated exposure control, adjustment of mA and/or kV according to patient size. COMPARISON: [facility], CT, CT ABDOMEN PELVIS W CON, 01/16/2020, 14:54. 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 Heart size normal. Liver: The liver is diffusely decreased in attenuation without focal mass lesion. Biliary system: Cholecystectomy. No intra or extrahepatic bile duct dilation. Pancreas: Unremarkable without mass or inflammation evident. Spleen: Normal in size and density. Adrenals: Normal morphology and density. Reproductive system: Unremarkable as visualized. Urinary system: Normal renal size and attenuation. Left renal cyst measures 1.8 cm No renal calculi, hydronephrosis, or solid mass present. Urinary bladder unremarkable. Gastrointestinal system: The bowel is unremarkable without evidence of bowel obstruction or inflammation. The stomach appears unremarkable. Multiple diverticula arise from the sigmoid colon without evidence of diverticulitis. Appendix: No findings to suggest acute appendicitis. Peritoneal spaces: No mesenteric or retroperitoneal adenopathy. No free air. No free fluid. Vasculature: Aortic atherosclerotic vascular calcification noted without evidence of aneurysm. Abdominal wall: Abdominal wall intact without evidence of ventral or inguinal hernias. Musculoskeletal: Normal bone mineralization. Degenerative disc disease and arthropathy noted in lower lumbar spine. Lower lumbar spine instrumentation and decompression. No acute fractures. Left hip femoral nail and screw instrumentation IMPRESSION: 1. No acute CT findings in the abdomen and pelvis. 2. Chronic findings include hepatic fatty infiltration, cholecystectomy, diverticulosis without diverticulitis Approved by: Tyree Forman M.D. on 09/28/2022 at 14:50
[2022-09-28 14:58] LABS: Troponin I < 0.012 ng/mL (0.01-0.034)
[2022-09-28] MEDS: ACETAMINOPHEN 325 MG TABLET 975 MG PO (14:59)
[2022-09-28] MEDS: SODIUM CHLORIDE 0.9% 1,000 ML 1000 ML IV (14:59)
[2022-09-28 15:35] LABS: Bacteria Urine Many (>30); Culture Indicated Urine Specimen Cultured; RBC Urine 1-5/HPF (0-5/HPF); Squamous Epithelial Cell Urine 0-1 /HPF (0-5/HPF); WBC Urine 5-10/HPF (0-5/HPF)
== END 2022-09-28 18:55 | disposition home or self-care (01) ==
PROVIDERS: Emergency Provider Emergency Medicine; PCP Physician Assistant
DX: R10.11 Right upper quadrant pain (principal); Z79.899 Other long term (current) drug therapy; Z20.822 Contact with and (suspected) exposure to COVID-19
CPT/HCPCS: 71045; 74177; 80053; 81003; 81015; 82550; 83690; 83735; 84484; 85025; 85610; 85730; 87077; 87086; 87186; 87635; 93005; 93010; 96360; 96361; 99284; C9803

== ENCOUNTER → 2023-01-28 14:13 | Outpatient (CLI) | payer MEDICARE, SELFPAY ==
[2021-07-03 21:45] VITALS: BMI 30.2
--- NOTE | 2023-01-28 | DI.RAD.S_ITS ---
PROCEDURE: XR SHOULDER LT MIN 2V INDICATIONS: PAIN IN L ARM TECHNIQUE: 3 views of the shoulder were acquired. COMPARISON: None. FINDINGS: Bones: No fractures or dislocations. No suspicious bony lesions. Visualized ribs appear intact. Soft tissues: No suspicious soft tissue calcifications. IMPRESSION: No acute bony abnormality. Dictated by: Keron Gomez M.D. on 01/28/2023 at 16:07 Approved by: Keron Gomez M.D. on 01/28/2023 at 16:08
--- NOTE | 2023-01-28 | DI.RAD.S_ITS ---
PROCEDURE: XR ELBOW LT MIN 3V INDICATIONS: PAIN IN L ARM TECHNIQUE: 3 views of the elbow were acquired. COMPARISON: None. FINDINGS: Bones: No fractures or dislocations. No suspicious bony lesions. Soft tissues: No elbow joint effusion. No suspicious soft tissue calcifications. IMPRESSION: No acute bony abnormality. Dictated by: Keron Gomez M.D. on 01/28/2023 at 16:08 Approved by: Keron Gomez M.D. on 01/28/2023 at 16:08
== END ==
PROVIDERS: PCP Physician Assistant; Referring Provider Physician Assistant; Visit Provider Physician Assistant
DX: M25.512 Pain in left shoulder (principal); M25.522 Pain in left elbow
CPT/HCPCS: 73030; 73080

== ENCOUNTER → 2023-02-11 09:22 | Outpatient (CLI) | payer MEDICARE, SELFPAY ==
[2021-07-03 21:45] VITALS: BMI 30.2
[2023-02-11 10:21] LABS: Erythrocyte Sedimentation Rate 16 MM/HR (0-20)
[2023-02-11 15:23] LABS: Add Manual Diff / Slide Review NO; Basophils Absolute Auto 0 /uL (0-100); Basophils Percent Auto 0.5 % (0-2); Eosinophils Absolute Auto 200 /uL (0-450); Eosinophils Percent Auto 2.8 % (2-4); Hematocrit 41.8 % (36-46); Hemoglobin 13.8 g/dL (12.0-16.0); Lymphocytes Absolute Auto 1400 /uL (1100-4500); Lymphocytes Percent Auto 19.4 % (25-40); Mean Corpuscular Hemoglobin 29.3 PG (26-34); Mean Corpuscular Volume 88.8 fL (80-100); Monocytes Absolute Auto 600 /uL (0-900); Monocytes Percent Auto 8.5 % (3-14); Neutrophils Absolute Auto 5000 /uL (1500-7000); Neutrophils Percent Auto 68.8 % (50-75); Platelet Count 330 X10^3/uL (150-400); Red Blood Cell Count 4.71 X10^6/uL (4.0-5.2); Red Cell Distribution Width 14.2 % (11.6-14.8); White Blood Cell Count 7.2 X10^3/uL (4.5-11.0)
[2023-02-11 15:39] LABS: Alanine Aminotransferase 41 IU/L (<35); Albumin 4.1 g/dL (3.5-5.0); Albumin Globulin Ratio 1.3 (1.0-2.8); Alkaline Phosphatase 94 U/L (38-126); Aspartate Aminotransferase 38 IU/L (14-36); BUN Creatinine Ratio 13.7 (6-22); Bilirubin Total 0.5 mg/dL (0.2-1.3); Blood Urea Nitrogen 13 mg/dL (7-17); Calcium 10.7 mg/dL (8.4-10.2); Carbon Dioxide 28 mmol/L (22-32); Chloride 98 mmol/L (98-107); Estimated Glomerular Filt Rate > 60 mL/min (>60); Globulin 3.2 g/dL (1.7-4.1); Glucose 122 mg/dL (80-110); HEMOLYSIS < 15 (0-50); Potassium 4.6 mmol/L (3.4-5.1); Sodium 134 mmol/L (137-145); Total Protein 7.3 g/dL (6.3-8.2)
== END ==
PROVIDERS: PCP Physician Assistant; Referring Provider Physician Assistant; Visit Provider Physician Assistant
DX: R51.9 Headache, unspecified (principal)
CPT/HCPCS: 36415; 80053; 85025; 85651; 86140

== ENCOUNTER → 2023-06-03 08:25 | Outpatient (CLI) | payer MEDICARE, SELFPAY ==
[2021-07-03 21:45] VITALS: BMI 30.2
--- NOTE | 2023-06-03 | DI.MG.S_ITS ---
BILATERAL DIGITAL SCREENING MAMMOGRAM 3D/2D WITH CAD: 06/03/2023 CLINICAL: Routine screening. Comparison is made to exams dated: 06/02/2022 mammogram, 05/02/2021 mammogram, and 04/11/2020 mammogram - [facility]. There are scattered areas of fibroglandular density in both breasts (category b / 25%-50% glandular tissue). Current study was also evaluated with a Computer Aided Detection (CAD) system. No significant masses, calcifications, or other findings are seen in either breast. There has been no significant interval change. IMPRESSION: NEGATIVE There is no mammographic evidence of malignancy. A 1 year screening mammogram is recommended. Based on the Tyrer Cuzick model (a risk assessment model) the patient's lifetime risk is 0.7% and her 10 year risk is 0.0%. According to the ACR, ACS, and NCCN guidelines, an annual breast MRI exam along with mammogram is recommended if the patient's lifetime risk is 20% or greater. This exam was interpreted at Station ID: [id number]. NOTE: For mammograms, a report in lay terms will be sent to the patient. Approximately 15% of breast malignancies will not be visualized mammographically. In the management of a palpable breast mass, a negative mammogram must not discourage biopsy of a clinically suspicious lesion. Electronically Signed By: Anibal sullivan/sherly:06/03/2023 17:08:58 letter sent: Normal Exam ACR BI-RADS Category 1: Negative [id number]
== END ==
PROVIDERS: PCP Physician Assistant; Referring Provider Physician Assistant; Visit Provider Physician Assistant
DX: Z12.31 Encounter for screening mammogram for malignant neoplasm of breast (principal)
CPT/HCPCS: 77063; 77067

== ENCOUNTER → 2024-01-12 12:00 | Outpatient (CLI) | payer MEDICARE, SELFPAY ==
[2021-07-03 21:45] VITALS: BMI 30.2
[2024-01-12 12:40] LABS: Bilirubin Urine UA NEGATIVE (NEGATIVE); Color Urine UA YELLOW; Glucose Urine UA NEGATIVE (Negative); Ketones Urine UA NEGATIVE (NEGATIVE); Leukocyte Esterase Urine UA NEGATIVE (NEGATIVE); Nitrite Urine UA POSITIVE (Negative); Occult Blood Urine UA 3+ (Negative); Protein Urine UA NEGATIVE (Negative); Urobilinogen Urine UA 0.2 E.U./dL (0.2)
[2024-01-12 12:43] LABS: Appearance Urine UA CLOUDY; pH Urine UA 5.5 (4.5-8.0)
[2024-01-12 12:44] LABS: Bacteria Urine Many (>30); Culture Indicated Urine Specimen Cultured; RBC Urine 0-1/HPF (0-5/HPF); Squamous Epithelial Cell Urine 1-5 /HPF (0-5/HPF); Urine Volume 10mL (spun); WBC Urine 1-5/HPF (0-5/HPF)
[2024-01-12 13:47] LABS: Alanine Aminotransferase 33 IU/L (<35); Albumin 3.9 g/dL (3.5-5.0); Albumin Globulin Ratio 1.6 (1.0-2.8); Alkaline Phosphatase 95 U/L (38-126); Aspartate Aminotransferase 28 IU/L (14-36); BUN Creatinine Ratio 23.8 (6-22); Bilirubin Total 0.5 mg/dL (0.2-1.3); Blood Urea Nitrogen 24 mg/dL (7-17); Calcium 10.8 mg/dL (8.4-10.2); Carbon Dioxide 29 mmol/L (22-32); Chloride 105 mmol/L (98-107); Cholesterol 212 mg/dL (140-199); Estimated Glomerular Filt Rate 56 mL/min (>60); Globulin 2.5 g/dL (1.7-4.1); Glucose 99 mg/dL (80-110); HDL Cholesterol 51 mg/dL (40-60); HEMOLYSIS < 15 (0-50); LDL Cholesterol Calculated 132 mg/dL (<100); Potassium 4.4 mmol/L (3.4-5.1); Sodium 139 mmol/L (137-145); Total Protein 6.4 g/dL (6.3-8.2); Triglycerides 143 mg/dL (35-150)
[2024-01-12 19:39] LABS: Free T3, Triiodothyronine Free 2.93 pg/mL (2.77-5.27)
== END ==
PROVIDERS: PCP Physician Assistant; Referring Provider Physician Assistant; Visit Provider Physician Assistant
DX: Z13.6 Encounter for screening for cardiovascular disorders (principal); E03.9 Hypothyroidism, unspecified; E78.2 Mixed hyperlipidemia; R82.998 Other abnormal findings in urine
CPT/HCPCS: 36415; 80053; 80061; 81001; 84481; 87077; 87086; 87186

== ENCOUNTER 2024-01-13 10:04 | Emergency (ER) | payer MEDICARE, SELFPAY ==
[2021-07-03 21:45] VITALS: BMI 30.2
[2024-01-13] VITALS (88 sets, daily range): BP systolic 92–163; BP diastolic 52–94; PULSE 64–110; RESP 10–42; TEMP 36.1–36.5; O2SAT 93–98; BMI 30.1
--- NOTE | 2024-01-13 10:19 | DI.RAD.S_ITS ---
PROCEDURE: XR CHEST 1V INDICATIONS: Shortness of breath TECHNIQUE: One view of the chest was acquired. COMPARISON: [facility], CR, XR CHEST 1V, 09/28/2022, 12:11. FINDINGS: Surgical changes and devices: Clips are present overlying the right lower neck. Cholecystectomy clips. Lungs and pleura: Mild appearance of increased vascularity. Minimal effusions. Mediastinum: Mediastinal contours appear normal. Heart size is enlarged. Bones and chest wall: No suspicious bony lesions. Overlying soft tissues appear unremarkable. IMPRESSION: Minimal effusions of cardiomegaly and increased vascularity suggestive of edema. Dictated by: Natty Rivera M.D. on 01/13/2024 at 10:44 Approved by: Natty Rivera M.D. on 01/13/2024 at 10:44
--- NOTE | 2024-01-13 10:24 | ED.GENADULT ---
HPI - General Adult General Chief complaint: Shortness of Breath/Dyspnea Stated complaint: sob chest pains Time Seen by Provider: 01/13/24 10:10 Source: patient and family Mode of arrival: Family Vehicle History of Present Illness HPI narrative: 83-year-old woman with a history of reflux, hyperlipidemia, presents today with increasing dyspnea, overall chest tightness and left-sided chest pain. On arrival when asked to describe the severity of her pain she rates it a 9/10 when the dyspnea and pain are all part of the equation. She has never had similar symptoms. On arrival she appears uncomfortable, slight tachypnea, she is able to speak in full sentences and is able to fully explain her symptoms. She does not note palpitations, headaches. She has not had any recent upper respiratory infections, yesterday she states she was at her usual baseline. No vomiting or diarrhea Related Data Home Medications Medication Instructions Recorded Confirmed atorvastatin 20 mg tablet (Lipitor) 20 mg PO QDAY ##0 08/25/17 09/28/22 omeprazole 20 mg capsule,delayed 20 mg PO QDAY ##0 08/25/17 09/28/22 release hydrocortisone 1 % topical cream 1 applic topical QID PRN Itching 07/03/21 09/28/22 Previous Rx's Medication Instructions Recorded acetaminophen 500 mg tablet 500 mg PO Q6H PRN pain #14 tabs 01/16/20 (Tylenol Extra Strength) ondansetron HCl 4 mg tablet 4 mg PO Q8H nausea #30 tabs 01/16/20 (Zofran) docusate sodium 100 mg capsule 100 mg PO BID #30 caps 07/07/21 ibuprofen 400 mg tablet 400 mg PO Q6HR PRN Pain, Mild 07/07/21 (1-3) #30 tabs levothyroxine 88 mcg tablet 88 mcg PO DAILY@0600 #30 tabs 07/07/21 propranolol 10 mg tablet 20 mg (2 x 10 mg) PO BID #60 tabs 07/07/21 sumatriptan succinate 50 mg tablet See Rx Instructions PO .COMPLEX 07/07/21 (Imitrex) #10 tabs tramadol 50 mg tablet 50 mg PO QID PRN Pain, Moderate 07/07/21 (4-6) #120 tabs albuterol sulfate 90 mcg/actuation 2 puff inhalation Q4-6H PRN 08/16/22 aerosol inhaler shortness of breath or wheezing #6.7 grams sulfamethoxazole 800 1 tab PO BID #10 tabs 09/28/22 mg-trimethoprim 160 mg tablet (Bactrim DS) Allergies Allergy/AdvReac Type Severity Reaction Status Date / Time hydrocodone Allergy Severe Swelling Verified 09/28/22 10:40 of Lip/Tongue/Throat amoxicillin [From Augmentin] Allergy Mild Hives Verified 09/28/22 10:40 clavulanic acid Allergy Mild Hives Verified 09/28/22 10:40 [From Augmentin] prednisone [PREDNISONE] Allergy Unknown Verified 09/28/22 10:40 Review of Systems Review of Systems Narrative: Pertinent positive and negative findings as per HPI Patient History Medical History (Updated 01/13/24 @ 14:01 by Sammie Syed MD) Hypothyroid Elevated blood pressure reading Social History household members: significant other Smoking Status: Former smoker alcohol intake: former Smoking Status: Former smoker alcohol intake frequency: holidays/special occasions only Substance Use Type: does not use Exam Initial Vital Signs Initial Vital Signs: Vital Signs Pulse Rate 102 H 01/13/24 10:10 Pulse Oximetry 97 01/13/24 10:10 General: Older appearing in moderate distress, tachypneic complaining of pain still able to speak in full sentences, slightly pale but not diaphoretic HEENT: Moist mucous membranes, normal sclera with reactive pupils, Neck: No JVD, supple Respiratory: Lungs minor bibasilar crackles without rhonchi Full and symmetrical air movement Cardiac: Regular rate and rhythm no murmurs no bruits Abdomen: Soft, nontender, good bowel tones, no flank pain Skin: Somewhat pale but not diaphoretic Neurologic: Grossly neurologically intact with no obvious asymmetries or abnormalities Extremities: No trauma, well perfused Psych: Cooperative, appropriate insight and affect Course Orders Ordered: ED Orders 01/13/24 10:19 XR chest 1V Stat EKG-12 Lead Stat Measure peak expiratory flow ONCE RT Consult Eval and Treat NOW 01/13/24 10:23 Complete Blood Count AUTO DIFF Stat Comprehensive Metabolic Panel Stat D Dimer Stat Lactate (Lactic Acid) Stat NT-proBNP (BNP-Adult 18+) Stat Prothrombin Time INR Stat Troponin I Stat 01/13/24 11:45 PTT Partial Thromboplastin [place] Q6H 01/13/24 11:47 Urine Culture Stat Urine Microscopic Stat 01/13/24 12:37 Troponin I Stat 01/13/24 15:29 EKG-12 Lead Routine 01/13/24 17:45 PTT Partial Thromboplastin [place] Q6H 01/13/24 23:45 PTT Partial Thromboplastin [place] Q6H 01/14/24 05:00 Hemoglobin and Hematocrit DAILY Platelet Count DAILY 01/14/24 05:45 PTT Partial Thromboplastin [place] Q6H 01/15/24 05:00 Hemoglobin and Hematocrit DAILY Platelet Count DAILY Acetaminophen (Acetaminophen 325 Mg Tablet) 650 mg PO Q6H PRN PRN Reason: Fever/Mild Pain (1-3) Heparin Sodium/Dextrose (Heparin Drip) 25,000 unit in 500 mls @ 18.507 mls/hr IV CONT NICOLAS; Protocol Last Admin: 01/13/24 12:10 Dose: 12 units/kg/hr, 18.5 mls/hr Documented By: FREDY Co-signed By: TOMASA Nitroglycerin (Nitroglycerin) 50 mg in 250 mls @ 1.5 mls/hr IV TITRATE NICOLAS; Protocol Last Titration: 01/13/24 13:56 Dose: 5 mcg/min, 1.5 mls/hr Documented By: Titration: 01/13/24 13:52 Dose: 10 mcg/min, 3 mls/hr Documented By: Titration: 01/13/24 12:50 Dose: 15 mcg/min, 4.5 mls/hr Documented By: Titration: 01/13/24 12:40 Dose: 10 mcg/min, 3 mls/hr Documented By: Admin: 01/13/24 12:16 Dose: 5 mcg/min, 1.5 mls/hr Documented By: FREDY Morphine Sulfate (Morphine 2 Mg/Ml Inj) 2 mg IV Q5MIN PRN PRN Reason: Chest Pain Last Admin: 01/13/24 11:00 Dose: 2 mg Documented By: KRANTHI Nitroglycerin (Nitroglycerin 0.4 Mg Sl Tab) 0.4 mg SL [id number] PRN PRN Reason: Chest Pain Last Admin: 01/13/24 10:53 Dose: 0.4 mg Documented By: Admin: 01/13/24 10:42 Dose: 0.4 mg Documented By: KRANTHI Discontinued Medications Aspirin (Aspirin Ec 81 Mg Tablet) 324 mg PO NOW ONE Stop: 01/13/24 10:26 Last Admin: 01/13/24 10:34 Dose: 324 mg Documented By: KRANTHI Heparin Sodium (Porcine) (Heparin 5,000 Unit/Ml Vial) 4,500 unit 60 unit/kg (4500 unit) IV NOW ONE Stop: 01/13/24 11:40 Last Admin: 01/13/24 12:09 Dose: 4,500 unit Documented By: FREDY Hydromorphone HCl (Hydromorphone 0.5 Mg Inj) 0.5 mg IV NOW ONE Stop: 01/13/24 16:32 Last Admin: 01/13/24 16:42 Dose: 0.5 mg Documented By: FREDY Metoclopramide HCl (Metoclopramide 10 Mg/2 Ml Inj) 10 mg IV NOW ONE Stop: 01/13/24 17:27 Last Admin: 01/13/24 17:31 Dose: 10 mg Documented By: FREDY Metoprolol Tartrate (Metoprolol Ir 25 Mg Tablet) 25 mg PO NOW ONE Stop: 01/13/24 10:57 Last Admin: 01/13/24 11:00 Dose: 25 mg Documented By: KRANTHI Ondansetron HCl (Ondansetron 4 Mg/2 Ml Inj) 4 mg IV NOW ONE Stop: 01/13/24 11:22 Last Admin: 01/13/24 11:22 Dose: 4 mg Documented By: KRANTHI Ondansetron HCl (Ondansetron 4 Mg/2 Ml Inj) 4 mg IV NOW ONE Stop: 01/13/24 15:34 Last Admin: 01/13/24 15:38 Dose: 4 mg Documented By: FREDY Vital Signs Vital signs: Vital Signs - 8 hr 01/13/24 10:10 01/13/24 10:11 01/13/24 10:12 Temperature 97.7 F Pulse Rate 102 H 106 H Respiratory Rate 30 H Blood Pressure 163/94 H 163/94 H Pulse Oximetry 97 97 Oxygen Delivery Method Room Air Oxygen Flow Rate 01/13/24 10:12 01/13/24 10:33 01/13/24 10:34 Temperature Pulse Rate 106 H 95 H 99 H Respiratory Rate 27 H 19 Blood Pressure Pulse Oximetry 97 97 97 Oxygen Delivery Method Oxygen Flow Rate 01/13/24 10:34 01/13/24 10:42 01/13/24 10:44 Temperature Pulse Rate 93 H 96 H Respiratory Rate 25 H Blood Pressure 150/70 H 150/70 H Pulse Oximetry 96 Oxygen Delivery Method Oxygen Flow Rate 01/13/24 10:44 01/13/24 10:46 01/13/24 10:46 Temperature Pulse Rate 110 H Respiratory Rate 32 H Blood Pressure 137/74 154/67 H Pulse Oximetry 95 Oxygen Delivery Method Oxygen Flow Rate 01/13/24 10:50 01/13/24 10:50 01/13/24 10:53 Temperature Pulse Rate 107 H 104 H Respiratory Rate 31 H Blood Pressure 118/75 118/75 Pulse Oximetry 94 Oxygen Delivery Method Room Air Oxygen Flow Rate 01/13/24 10:55 01/13/24 10:55 01/13/24 11:00 Temperature Pulse Rate 100 H 99 H Respiratory Rate 22 23 Blood Pressure 127/81 Pulse Oximetry 94 95 Oxygen Delivery Method Oxygen Flow Rate 01/13/24 11:00 01/13/24 11:05 01/13/24 11:05 Temperature Pulse Rate 108 H Respiratory Rate Blood Pressure 137/79 123/78 Pulse Oximetry 96 Oxygen Delivery Method Oxygen Flow Rate 01/13/24 11:10 01/13/24 11:10 01/13/24 11:15 Temperature Pulse Rate 97 H 93 H Respiratory Rate 24 10 L Blood Pressure 128/81 Pulse Oximetry 95 95 Oxygen Delivery Method Oxygen Flow Rate 01/13/24 11:15 01/13/24 11:20 01/13/24 11:20 Temperature Pulse Rate 91 H Respiratory Rate 16 Blood Pressure 126/78 126/74 Pulse Oximetry 96 Oxygen Delivery Method Oxygen Flow Rate 01/13/24 11:25 01/13/24 11:25 01/13/24 11:30 Temperature Pulse Rate 91 H 90 Respiratory Rate 23 23 Blood Pressure 122/72 Pulse Oximetry 96 95 Oxygen Delivery Method Oxygen Flow Rate 01/13/24 11:30 01/13/24 12:00 01/13/24 12:05 Temperature Pulse Rate 96 H 91 H Respiratory Rate 21 22 Blood Pressure 123/75 Pulse Oximetry 97 98 Oxygen Delivery Method Oxygen Flow Rate 01/13/24 12:10 01/13/24 12:15 01/13/24 12:20 Temperature Pulse Rate 94 H 92 H 91 H Respiratory Rate 26 H 23 22 Blood Pressure Pulse Oximetry 97 98 97 Oxygen Delivery Method Oxygen Flow Rate 01/13/24 12:25 01/13/24 12:30 01/13/24 12:31 Temperature Pulse Rate 88 84 88 Respiratory Rate 19 29 H 32 H Blood Pressure Pulse Oximetry 98 98 97 Oxygen Delivery Method Oxygen Flow Rate 01/13/24 12:31 01/13/24 12:35 01/13/24 12:35 Temperature Pulse Rate 85 Respiratory Rate 30 H Blood Pressure 126/80 132/82 Pulse Oximetry 95 Oxygen Delivery Method Oxygen Flow Rate 01/13/24 12:40 01/13/24 12:40 01/13/24 12:45 Temperature Pulse Rate 84 80 Respiratory Rate 30 H 24 Blood Pressure 139/81 Pulse Oximetry 97 97 Oxygen Delivery Method Oxygen Flow Rate 01/13/24 12:45 01/13/24 12:48 01/13/24 12:48 Temperature Pulse Rate 80 Respiratory Rate 22 Blood Pressure 128/81 144/64 H Pulse Oximetry 97 Oxygen Delivery Method Oxygen Flow Rate 01/13/24 12:50 01/13/24 12:50 01/13/24 12:55 Temperature Pulse Rate 79 81 Respiratory Rate 24 29 H Blood Pressure 120/65 Pulse Oximetry 96 97 Oxygen Delivery Method Room Air Oxygen Flow Rate 01/13/24 12:56 01/13/24 12:56 01/13/24 13:00 Temperature Pulse Rate 82 Respiratory Rate 31 H Blood Pressure 100/66 128/69 Pulse Oximetry 94 Oxygen Delivery Method Oxygen Flow Rate 01/13/24 13:00 01/13/24 13:05 01/13/24 13:05 Temperature Pulse Rate 79 78 Respiratory Rate 27 H 28 H Blood Pressure 117/66 Pulse Oximetry 95 95 Oxygen Delivery Method Nasal Cannula Oxygen Flow Rate 2 01/13/24 13:10 01/13/24 13:10 01/13/24 13:15 Temperature Pulse Rate 82 81 Respiratory Rate 25 H 27 H Blood Pressure 121/60 Pulse Oximetry 95 95 Oxygen Delivery Method Oxygen Flow Rate 01/13/24 13:15 01/13/24 13:19 01/13/24 13:19 Temperature Pulse Rate 80 Respiratory Rate 29 H Blood Pressure 135/78 105/73 Pulse Oximetry 94 Oxygen Delivery Method Nasal Cannula Oxygen Flow Rate 2 01/13/24 13:20 01/13/24 13:20 01/13/24 13:25 Temperature Pulse Rate 78 Respiratory Rate 24 Blood Pressure 112/71 103/63 Pulse Oximetry 95 Oxygen Delivery Method Oxygen Flow Rate 01/13/24 13:25 01/13/24 13:30 01/13/24 13:30 Temperature Pulse Rate 74 74 Respiratory Rate 22 26 H Blood Pressure 102/62 Pulse Oximetry 97 97 Oxygen Delivery Method Oxygen Flow Rate 01/13/24 13:35 01/13/24 13:35 01/13/24 13:40 Temperature Pulse Rate 72 74 Respiratory Rate 37 H 26 H Blood Pressure 92/56 L Pulse Oximetry 97 95 Oxygen Delivery Method Oxygen Flow Rate 01/13/24 13:40 01/13/24 13:45 01/13/24 13:45 Temperature Pulse Rate 72 Respiratory Rate 26 H Blood Pressure 106/59 L 102/55 L Pulse Oximetry 95 Oxygen Delivery Method Oxygen Flow Rate 01/13/24 13:50 01/13/24 13:50 01/13/24 13:55 Temperature Pulse Rate 75 73 Respiratory Rate 22 26 H Blood Pressure 99/59 L Pulse Oximetry 95 95 Oxygen Delivery Method Oxygen Flow Rate 01/13/24 13:55 Temperature Pulse Rate Respiratory Rate Blood Pressure 94/59 L Pulse Oximetry Oxygen Delivery Method Oxygen Flow Rate Medical Decision Making Lab Data 01/13/24 10:23 01/13/24 10:23 Labs: Lab Results 01/13/24 01/13/24 01/13/24 Range/Units 10:23 11:47 12:37 WBC 9.1 (4.5-11.0) X10^3/uL RBC 5.10 (4.0-5.2) X10^6/uL Hgb 14.9 (12.0-16.0) g/dL Hct 44.7 (36-46) % MCV 87.7 (80-100) fL MCH 29.2 (26-34) PG MCHC 33.2 (30-36) % RDW 14.3 (11.6-14.8) % Plt Count 236 (150-400) X10^3/uL Neut % (Auto) 70.7 (50-75) % Lymph % (Auto) 17.6 L (25-40) % [place] % (Auto) 7.9 (3-14) % Eos % (Auto) 2.8 (2-4) % Baso % (Auto) 1.0 (0-2) % Neut # (Auto) 6400 (8090-3320) /uL Lymph # (Auto) 1600 (2833-1705) /uL [place] # (Auto) 700 (0-900) /uL Eos # (Auto) 300 (0-450) /uL Baso # (Auto) 100 (0-100) /uL PT 11.2 (9.4-12.5) SECONDS INR 1.0 (0.9-1.3) D-Dimer 1568 H (<500) ng/ml Sodium 142 (137-145) mmol/L Potassium 3.9 (3.4-5.1) mmol/L Chloride 106 (98-107) mmol/L Carbon Dioxide 32 (22-32) mmol/L BUN 21 H (7-17) mg/dL Creatinine 1.00 (0.52-1.04) mg/dL Estimated GFR 56 L (>60) mL/min BUN/Creatinine Ratio 21.0 (6-22) Glucose 103 (80-110) mg/dL Lactate 1.2 (0.7-2.1) mmol/L Calcium 11.3 H (8.4-10.2) mg/dL Total Bilirubin 0.6 (0.2-1.3) mg/dL AST 34 (14-36) IU/L ALT 37 H (<35) IU/L Alkaline Phosphatase 115 (38-126) U/L Troponin I 0.149 H* 1.560 H* (0.01-0.034) ng/mL NT-Pro-B Natriuret Pep 551 H (<450) pg/mL Total Protein 8.1 (6.3-8.2) g/dL Albumin 4.6 (3.5-5.0) g/dL Globulin 3.5 (1.7-4.1) g/dL Albumin/Globulin Ratio 1.3 (1.0-2.8) Urine RBC 0-1/hpf (0-5/HPF) Urine WBC 10-30/hpf H D (0-5/HPF) Ur Squamous Epith Cells None seen (0-5/HPF) Urine Bacteria Many (>30) H (None) Ur Culture Indicated? Specimen cultured Vol Urine Centrifuged 10ml (spun) Urine Dip Bedside Urine Glucose Negative Bedside Urine Bilirubin - Negative Bedside Urine Ketone - Negative Urine Specific [place] 1.010 Bedside Urine Occult Blood +++ Bedside Urine pH 6.0 Bedside Urine Protein - Negative Bedside Urine Urobilinogen - Negative Bedside Urine Nitrite - Negative Bedside Urine Leukocytes +++ 500 Esterase Point of care testing: Urine Dip Bedside Urine Glucose Negative Bedside Urine Bilirubin - Negative Bedside Urine Ketone - Negative Urine Specific [place] 1.010 Bedside Urine Occult Blood +++ Bedside Urine pH 6.0 Bedside Urine Protein - Negative Bedside Urine Urobilinogen - Negative Bedside Urine Nitrite - Negative Bedside Urine Leukocytes +++ 500 Esterase MDM Narrative Medical decision making narrative: CC: Left-sided chest pain with dyspnea and tachypnea with oxygenation maintain on room air Complicating co-morbidities: No prior cardiac events, hyperlipidemia, Data collected from: patient, son Medical records reviewed: Recent emergency to visit notes as well as primary care notes have been reviewed Differential considered: Acute coronary syndrome, pulmonary embolism Exam documented above, pertinent findings include: Tachypneic, pale still able to speak in full sentences, remainder of exam is benign Lab Test results independently reviewed as above. Pertinent findings: 1135 initial trop returns at .149 ProBNP is minimally elevated at 551 CBC is unremarkable Chemistries show creatinine at 1 calcium is slightly elevated at 11.3, otherwise no significant find Independently reviewed EKG: Sinus tachycardia at 101. LVH, leftward axis. No acute ischemia Imaging studies independently reviewed: Chest x-ray shows minimal effusion, cardiomegaly, vascular edema suggestive of congestive heart failure Consultations: Care is discussed with Cardiology at the [facility] in [place]. Dr. Hermelinda Patel. Agrees with transfer, admit to the hospitalist service for NSTEMI. We will talk with the hospitalist physicians 2pm Accepted by Dr Crisostomo, hospitalist, pending bed availalbity Treatments: Sublingual nitro x3 took pain from a 9 down to a 5. She was given oral metoprolol After troponin returns positive started on heparin Re-evaluations: 1145 explained findings, concerns, anticipated transfer, added medications with patient and her son. She is still uncomfortable and describes her pain is somewhere between a 5 is and a 7 Discussion: 83-year-old woman with the acute onset left-sided chest pain and dyspnea early this morning. Initial troponin was elevated at 0.149, on repeat it increased to 1.560. She has been on heparin drip, nitro drip, pain has been significantly better controlled however low-grade left-sided chest pain nausea and dyspnea has persisted throughout her stay. Care is reviewed with hospitalist and spinning machine tender at [facility] and patient is accepted. 530pm bed is available, transport will be arranged. Patient remains on heparin, nitro, has a low-grade headache, continued nausea, otherwise hemodynamically stable and safe for transport Critical Care Time Critical Care Time Critical Care Time: Yes Total Critical Care Time: 47 Attestation: Critical care time is separate from other billable procedures. There is a high probability of a significant, sudden or life-threatening deterioration that requires my full and direct attention, intervention and personal management. This critical care time includes consultation with family and other consulting doctors, review of records, and interpretation of data from labs, EKGs and imaging as well as managements of management of NSTEMI with parenteral nitroglycerin as well as heparin drip. Extensive amount of time in consultation with multiple facilities to find available bed. Discharge Plan Departure Patient Disposition: Admitted as Observation Clinical Impression: Acute non-ST elevation myocardial infarction (NSTEMI)
[2024-01-13 10:34] LABS: Add Manual Diff / Slide Review NO; Basophils Absolute Auto 100 /uL (0-100); Eosinophils Absolute Auto 300 /uL (0-450); Eosinophils Percent Auto 2.8 % (2-4); Hematocrit 44.7 % (36-46); Hemoglobin 14.9 g/dL (12.0-16.0); Lymphocytes Absolute Auto 1600 /uL (1100-4500); Lymphocytes Percent Auto 17.6 % (25-40); Mean Corpuscular HGB Conc 33.2 % (30-36); Mean Corpuscular Hemoglobin 29.2 PG (26-34); Mean Corpuscular Volume 87.7 fL (80-100); Monocytes Absolute Auto 700 /uL (0-900); Monocytes Percent Auto 7.9 % (3-14); Neutrophils Absolute Auto 6400 /uL (1500-7000); Neutrophils Percent Auto 70.7 % (50-75); Platelet Count 236 X10^3/uL (150-400); Red Cell Distribution Width 14.3 % (11.6-14.8); White Blood Cell Count 9.1 X10^3/uL (4.5-11.0)
[2024-01-13] MEDS: ASPIRIN EC 81 MG TABLET 324 MG PO (10:34)
[2024-01-13] MEDS: NITROGLYCERIN 0.4 MG SL TAB SL ×2 (10:42→10:53)
[2024-01-13 10:46] LABS: Prothrombin Time 11.2 SECONDS (9.4-12.5)
[2024-01-13 10:48] LABS: Alanine Aminotransferase 37 IU/L (<35); Albumin 4.6 g/dL (3.5-5.0); Albumin Globulin Ratio 1.3 (1.0-2.8); Alkaline Phosphatase 115 U/L (38-126); Aspartate Aminotransferase 34 IU/L (14-36); Bilirubin Total 0.6 mg/dL (0.2-1.3); Blood Urea Nitrogen 21 mg/dL (7-17); Calcium 11.3 mg/dL (8.4-10.2); Carbon Dioxide 32 mmol/L (22-32); Chloride 106 mmol/L (98-107); Estimated Glomerular Filt Rate 56 mL/min (>60); Globulin 3.5 g/dL (1.7-4.1); Glucose 103 mg/dL (80-110); HEMOLYSIS < 15 (0-50); Potassium 3.9 mmol/L (3.4-5.1); Sodium 142 mmol/L (137-145); Total Protein 8.1 g/dL (6.3-8.2)
[2024-01-13 10:49] LABS: Lactate (Lactic Acid) 1.2 mmol/L (0.7-2.1)
[2024-01-13 10:57] LABS: D Dimer 1568 ng/ml (<500)
[2024-01-13 11:00] LABS: NT-proBNP (BNP-Adult 18+) 551 pg/mL (<450)
[2024-01-13] MEDS: METOPROLOL IR 25 MG TABLET PO (11:00)
[2024-01-13] MEDS: MORPHINE 2 MG/ML INJ IV (11:00)
[2024-01-13] MEDS: ONDANSETRON 4 MG/2 ML INJ IV ×2 (11:22→15:38)
[2024-01-13 11:33] LABS: Troponin I 0.149 ng/mL (0.01-0.034)
[2024-01-13] MEDS: HEPARIN 5,000 UNIT/ML VIAL 4500 UNIT IV (12:09)
[2024-01-13] MEDS: HEPARIN DRIP 25,000 UNIT/500 ML IV.SOLN 18.5 UNIT IV (12:10)
[2024-01-13] MEDS: NITROGLYCERIN 50 MG/250 ML INFUS..BTL IV (12:16)
[2024-01-13 13:30] LABS: Bacteria Urine Many (>30); RBC Urine 0-1/HPF (0-5/HPF); Urine Volume 10mL (spun); WBC Urine 10-30/HPF (0-5/HPF)
[2024-01-13 13:31] LABS: Culture Indicated Urine Specimen Cultured; Squamous Epithelial Cell Urine None Seen (0-5/HPF)
[2024-01-13] MEDS: HYDROMORPHONE 0.5 MG INJ IV (16:42)
--- NOTE | 2024-01-13 17:06 | PC.NURSE ---
This RN attempts a lab draw with a 23G butterfly at CELESTINO Nelson request. This RN attempt unsuccessful. CELESTINO Nelson notified.
[2024-01-13] MEDS: METOCLOPRAMIDE 10 MG/2 ML INJ IV (17:31)
--- NOTE | 2024-01-13 17:59 | PC.NURSE ---
intermittent left side chest pain/tightness. responding to nitro and narcotics. resp regualr and unlabored. hr 60's.
--- NOTE | 2024-01-13 18:33 | PC.NURSE ---
Nitro gtt and heparin gtt reviewed and continued during tx w/ [facility]. Ptt not drawn due to departure. [facility] aware.
== END 2024-01-13 18:20 | disposition admitted as inpatient to this hospital (09) ==
PROVIDERS: Emergency Provider Emergency Medicine; PCP Physician Assistant
DX: I21.4 Non-ST elevation (NSTEMI) myocardial infarction (principal)
CPT/HCPCS: 36415; 71045; 80053; 81003; 81015; 83605; 83880; 84484; 85025; 85379; 85610; 87077; 87086; 87186; 93005; 96365; 96366; 96375; 99285; 99291; J1170; J1644; J2270; J2405; J2765

== ENCOUNTER → 2024-04-25 11:21 | Outpatient (CLI) | payer MEDICARE, SELFPAY ==
[2021-07-03 21:45] VITALS: BMI 30.2
== END ==
PROVIDERS: PCP Physician Assistant; Referring Provider Physician Assistant; Visit Provider Physician Assistant
DX: N39.0 Urinary tract infection, site not specified (principal)
CPT/HCPCS: 87086

== ENCOUNTER 2024-05-02 10:15 | Outpatient (RCR) | payer MEDICARE, SELFPAY ==
[2021-07-03 21:45] VITALS: BMI 30.2
== END 2024-05-02 12:15 ==
LOC: CAR 10:15
PROVIDERS: PCP Physician Assistant; Referring Provider Internal Medicine Interventional Cardiology; Visit Provider Internal Medicine Interventional Cardiology
DX: I21.4 Non-ST elevation (NSTEMI) myocardial infarction (principal)
CPT/HCPCS: 93798

== ENCOUNTER → 2024-08-16 11:29 | Outpatient (CLI) | payer MEDICARE, SELFPAY ==
[2021-07-03 21:45] VITALS: BMI 30.2
== END ==
PROVIDERS: PCP Physician Assistant; Referring Provider Physician Assistant; Visit Provider Physician Assistant
DX: R30.0 Dysuria (principal)
CPT/HCPCS: 87077; 87086; 87186

== ENCOUNTER → 2025-02-03 07:30 | Outpatient (CLI) | payer MEDICARE, SELFPAY ==
[2021-07-03 21:45] VITALS: BMI 30.2
[2025-02-03 08:38] LABS: Uric Acid 6.1 mg/dL (2.5-6.2)
== END ==
PROVIDERS: PCP Physician Assistant; Referring Provider Physician Assistant; Visit Provider Physician Assistant
DX: M10.9 Gout, unspecified (principal)
CPT/HCPCS: 36415; 84550

== ENCOUNTER → 2025-04-28 14:39 | Outpatient (CLI) | payer MEDICARE, SELFPAY ==
[2021-07-03 21:45] VITALS: BMI 30.2
--- NOTE | 2025-04-28 14:41 | DI.MG.S_ITS ---
MM screening mammo BI: 04/28/2025. BI-RADS: 1 CLINICAL: 84-year old female for bilateral screening mammogram. Tyrer-Cuzick lifetime risk of 0.4%. No personal or first-degree family history of breast cancer. The patient is status-post reduction mammoplasty. PRIOR EXAMS 06/03/2023, 06/02/2022, 05/02/2021, 04/11/2020. MAMMOGRAPHY TECHNIQUE: 2D and 3D (tomosynthesis) digital mammographic views obtained, with additional images as needed for full coverage. Current study was also evaluated with a Computer Aided Detection (CAD) system. DENSITY B. There are scattered areas of fibroglandular density. MAMMOGRAPHY FINDINGS Bilateral: No suspicious mass, asymmetry, microcalcification, or other abnormality seen. IMPRESSION: * No evidence of malignancy. RECOMMENDATIONS Bilateral * Annual screening mammography. OVERALL ASSESSMENT CATEGORY BI-RADS-1: Negative. The [employer] recommends annual screening mammography beginning at age 40 for women with average risk of breast cancer. ELECTRONICALLY SIGNED: Maryann Lincoln M.D. on 05/01/2025 at 10:24:49 PM PT Interpreting Station ID: [id number]
== END ==
PROVIDERS: PCP Physician Assistant; Referring Provider Physician Assistant; Visit Provider Physician Assistant
DX: Z12.31 Encounter for screening mammogram for malignant neoplasm of breast (principal)
CPT/HCPCS: 77063; 77067

== ENCOUNTER → 2025-05-02 11:36 | Outpatient (CLI) | payer MEDICARE, SELFPAY ==
[2021-07-03 21:45] VITALS: BMI 30.2
--- NOTE | 2025-05-02 11:39 | DI.MRI.S_ITS ---
PROCEDURE: MR ANKLE LT WO/W CON INDICATIONS: MASS LEFT ANKLE TECHNIQUE: Noncontrast sagittal T1 spin echo and T2 fast spin echo with fat saturation, axial proton density fast spin echo and T2 fast spin echo with fat saturation, axial T1 spin echo with fat saturation, coronal T1 spin echo and T2 fast spin echo with fat saturation through the ankle/hindfoot. Post-contrast axial, coronal, and sagittal T1 spin echo with fat saturation through the ankle/hindfoot. COMPARISON: [facility] [place], CR, XR ANKLE 3 VIEWS WEIGHT BEARING LEFT, 04/27/2025, 11:21. FINDINGS: Image quality: Excellent Tendons: The trace tenosynovitis of the posterior tibialis. The flexor digitorum longus, and the flexor hallucis longus are unremarkable. The extensor tendons are unremarkable. Longitudinal split tear of the peroneal brevis, at the level of the lateral malleolus. The peroneal longus is unremarkable. The distal Achilles tendon is unremarkable. Ligaments: The anterior and posterior tibiofibular ligaments are intact. The anterior and posterior talofibular ligaments are intact. The calcaneofibular ligament is unremarkable. Mild sprain of the deep portion of the deltoid ligament. Sinus tarsi: No fibrosis Plantar fascia: Unremarkable Muscles: Normal in signal Bones: no acute fracture. Marrow signal is normal for age. No significant tibiotalar or posterior subtalar effusion. Other soft tissue findings: There is prominent subcutaneous fat in the anterolateral hindfoot, measuring approximately 4.3 cm. There is internal area of patchy T1 hypointensity with associated edema, representing fat necrosis, measuring 1.4 cm. No suspicious enhancing soft tissue mass. IMPRESSION: 1. Longitudinal split tear of the peroneal brevis. 2. 4.3 cm prominent subcutaneous fat in the anterolateral hindfoot, with 1.4 cm area of fat necrosis. No suspicious enhancing soft tissue mass. Dictated by: Lynsey Varghese M.D. on 05/02/2025 at 14:02 Approved by: Lynsey Varghese M.D. on 05/02/2025 at 14:14
== END ==
PROVIDERS: PCP Physician Assistant; Referring Provider Orthopaedic Surgery Foot and Ankle Surgery; Visit Provider Orthopaedic Surgery Foot and Ankle Surgery
DX: S86.312A Strain of muscle(s) and tendon(s) of peroneal muscle group at lower leg level, left leg, initial encounter (principal); S93.422A Sprain of deltoid ligament of left ankle, initial encounter; M79.89 Other specified soft tissue disorders; R22.42 Localized swelling, mass and lump, left lower limb
CPT/HCPCS: 73723; A9579